=== PATIENT | male | born 1950 | race Caucasian/White ===

== ENCOUNTER 2020-03-19 22:43 | Emergency (ER) | payer MEDICARE, SELFPAY ==
--- NOTE | 2020-03-19 22:50 | XR_ITS ---
EXAMINATION: CHEST 1 VIEW CLINICAL INFORMATION: Chest pain. COMPARISON: 08/13/2019. TECHNIQUE: An AP view of the chest is provided. FINDINGS: The cardiac silhouette is not enlarged. The mediastinal and hilar contours are unremarkable. There are neither pleural effusions nor pneumothoraces. There are no consolidations. The osseous structures are unremarkable. XR/XR chest 1V IMPRESSION: No evidence for acute disease.
[2020-03-19 22:51] VITALS: BP 173/82; PULSE 69; RESP 17; TEMP 36.5; O2SAT 100; BMI 24.3
--- NOTE | 2020-03-19 22:51 | ECG_ITS ---
Test Reason : CP Blood Pressure : / mmHG Vent. Rate : 070 BPM Atrial Rate : 070 BPM P-R Int : 172 ms QRS Dur : 094 ms QT Int : 432 ms P-R-T Axes : 063 017 074 degrees QTc Int : 466 ms Normal sinus rhythm Possible Left atrial enlargement Cannot rule out Anterior infarct , age undetermined Abnormal ECG When compared with ECG of 14-AUG-2019 10:28, T wave inversion no longer evident in Inferior leads Referred By: Bernice Saeed Electronically Signed By:GRAHAM TONY
[2020-03-19 23:02] LABS: Glucose, Whole Blood 110 mg/dL (60-115)
[2020-03-19 23:06] LABS: Basophils Percent Auto 0.4 % (0-2); Eosinophils Absolute Auto 0.3 X10*3/uL (0.0-0.4); Eosinophils Percent Auto 4.1 % (0-4); Hematocrit 38.6 % (42-52); Hemoglobin 12.7 g/dl (14.0-18.0); Imm Gran Abs Auto 0.09 X10*3/uL (0.00-0.03); Imm Gran Pct Auto 1.3 % (0.0-0.4); Lymphocytes Absolute Auto 1.9 X10*3/uL (1.2-4.9); Lymphocytes Percent Auto 27.1 % (20-40); MANUAL DIFF FLAG NO; Mean Corpuscular HGB Conc 32.9 g/dl (31.0-36.0); Mean Corpuscular Hemoglobin 29.3 pg (27.0-33.0); Mean Corpuscular Volume 89.1 fL (80-98); Mean Platelet Volume 10.7 fL (9.4-12.4); Monocytes Absolute Auto 0.5 X10*3/uL (0.1-1.2); Monocytes Percent Auto 7.2 % (2-11); Neutrophils Absolute Auto 4.2 X10*3/uL (2.0-8.3); Neutrophils Percent Auto 59.9 % (45-73); Platelet Count 166 X10*3/uL (160-400); Red Blood Count 4.33 X10*6/uL (4.60-5.80); Red Cell Distribution Width 13.6 % (11.0-16.0)
[2020-03-19 23:13] LABS: INTERNATIONAL NORM RATIO 1.1 (0.9-1.1); Prothrombin Time 12.6 SEC (10.8-13.0)
[2020-03-19 23:15] LABS: Partial Thromboplastin Time 32.8 SEC (24.1-38.0)
[2020-03-19 23:38] LABS: Troponin-I High Sensitivity 9.8 ng/L (<3.5-35.0)
[2020-03-19 23:39] LABS: Alanine Aminotransferase 18 U/L (0-40); Albumin Level 4.3 g/dL (3.5-5.0); Alkaline Phosphatase 64 U/L (39-117); Anion Gap 18 (12-20); Aspartate Amino Transferase 16 U/L (5-37); Bilirubin Direct 0.2 mg/dL (0.0-0.5); Bilirubin Total 0.3 mg/dL (0.0-1.0); Blood Urea Nitrogen 30 mg/dL (9-16); Calcium 8.8 mg/dL (8.4-10.2); Carbon Dioxide 24 mmol/L (22-29); Chloride 101 mmol/L (96-108); Estimated Glomerular Filt Rate 53; Glucose Random 101 mg/dL (60-115); Magnesium 1.8 mg/dL (1.6-2.6); Potassium 4.7 mmol/L (3.3-5.1); Sodium 138 mmol/L (135-145); Total Protein 6.9 g/dL (6.5-8.0)
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
[2020-03-19 23:44] LABS: Influenza A PCR NEGATIVE (Negative); Influenza B PCR NEGATIVE (Negative); Resp Syncy Virus RNA Qual PCR NEGATIVE (Negative); SARS COV2 PCR INHOUSE NEGATIVE (Negative)
[2020-03-19 23:50] LABS: Lipase 99 U/L (8-78)
[2020-03-20] VITALS: BP 153/78; PULSE 65; RESP 15; TEMP 36.9; O2SAT 97
[2020-03-20] MEDS: 0.9 % Sodium Chloride 1,000 ML 999 ML IVCONT (00:37)
[2020-03-20 00:41] LABS: Glucose, Whole Blood 78 mg/dL (60-115)
[2020-03-20 01:28] LABS: Troponin-I High Sensitivity 9.2 ng/L (<3.5-35.0)
[2020-03-20 02:00] VITALS: BP 131/71; PULSE 66; RESP 16; TEMP 36.9; O2SAT 98
[2020-03-20 02:15] LABS: Glucose, Whole Blood 104 mg/dL (60-115)
--- NOTE | 2020-03-20 02:30 | ECG_ITS ---
Test Reason : REPEAT Blood Pressure : / mmHG Vent. Rate : 068 BPM Atrial Rate : 068 BPM P-R Int : 168 ms QRS Dur : 094 ms QT Int : 428 ms P-R-T Axes : 060 -02 070 degrees QTc Int : 455 ms Normal sinus rhythm Possible Left atrial enlargement Possible Anterior infarct (cited on or before 19-MAR-2020) Abnormal ECG When compared with ECG of 19-MAR-2020 22:47, No significant change was found Referred By: Bernice Saeed Electronically Signed By:GRAHAM TONY
[2020-03-20] MEDS: traMADoL HCL 50 MG TABLET PO (03:04)
== END 2020-03-20 03:45 | disposition home or self-care (01) ==
PROVIDERS: Nurse Practitioner Family; Emergency Provider Emergency Medicine; PCP Internal Medicine
DX: R07.89 Other chest pain (principal); F41.9 Anxiety disorder, unspecified; E11.649 Type 2 diabetes mellitus with hypoglycemia without coma; Z79.4 Long term (current) use of insulin; Z20.822 Contact with and (suspected) exposure to COVID-19; I11.0 Hypertensive heart disease with heart failure; I50.9 Heart failure, unspecified; E78.5 Hyperlipidemia, unspecified
CPT/HCPCS: 0241U; 36415; 71045; 80048; 80076; 82947; 83690; 83735; 84484; 85025; 85610; 85730; 93005; 96360; 99284; 99291

== ENCOUNTER 2020-05-20 13:21 | Inpatient (IN) | payer MEDICARE, SELFPAY ==
--- NOTE | ~2020-05-20 | CT_ITS ---
EXAMINATION: CT ABDOMEN AND PELVIS WITHOUT CONTRAST CLINICAL INFORMATION: Severe diffuse abdominal pain and constipation. COMPARISON: None TECHNIQUE: Multidetector volumetric imaging was performed from the superior aspect of the liver through the pubic symphysis. Sagittal and coronal reformatted images were obtained on the technologist's workstation. This CT examination was performed using dose optimization techniques as appropriate, variously including the following: *Automated exposure control *Adjustment of mA and/or kV according to patient size (this includes techniques or standardized protocols for targeted exams where dose is matched to indication/reason for exam; i.e. extremities or head) *Use of iterative reconstruction technique DLP: 615 mGy-cm FINDINGS: Visualized lung bases demonstrate mild dependent atelectasis. Coronary artery calcifications are partially visualized. The liver is normal in size but demonstrates diffusely decreased attenuation. Small gallstones are present dependently within an otherwise unremarkable appearing gallbladder. Mild fatty atrophy of the pancreas. The spleen and adrenal glands are unremarkable. Small anterior splenule. The kidneys are symmetric in size. No renal calculi or hydronephrosis bilaterally. Perinephric stranding is present bilaterally, nonspecific. The stomach is decompressed. Normal caliber loops of small bowel. Moderate to severe stool burden throughout the majority of the colon. Mild diffuse rectal wall thickening suggesting proctitis. Normal appendix. Nonaneurysmal abdominal aorta. Mild to moderate atherosclerotic disease. No retroperitoneal lymphadenopathy. The bladder is distended. Prostate gland is at the upper limits of normal in size. Moderate sized fat-containing inguinal hernias bilaterally. No inguinal lymphadenopathy. Mild diffuse degenerative changes of the spine. 1.5 cm sclerotic density within the right ilium is nonspecific. Partially visualized sternotomy wires. CT/CT abdomen pelvis wo con IMPRESSION: 1. Moderate to severe colonic stool burden consistent with constipation. 2. Diffusely decreased liver attenuation suggesting hepatic steatosis. Correlation with liver enzymes recommended. 3. Cholelithiasis. 4. Distended bladder, nonspecific finding.
--- NOTE | ~2020-05-20 | XR_ITS ---
EXAMINATION: XR ABDOMEN KUB CLINICAL INDICATION: Evaluate for small bowel obstruction COMPARISON: CT abdomen pelvis 05/20/2020 TECHNIQUE: AP view of the abdomen. FINDINGS: No dilated air-filled loops of small bowel to suggest an obstructive process. Moderate to severe stool burden again demonstrated throughout the colon. No acute osseous abnormality. Similar sclerotic density of the right ilium. Visualized lung bases are well aerated. XR/XR KUB IMPRESSION: -Constipation. -No radiographic evidence to suggest bowel obstruction.
--- NOTE | 2020-05-20 13:26 | ED.ABDPAIN ---
HPI - Abdominal Pain General Chief Complaint: Abdominal Pain Stated Complaint: LOW ABD PAIN & CONSTIPATION S/P SURG WEEKS AGO Time Seen by Provider: 05/20/20 13:26 Source: patient and EMS Mode of arrival: EMS Limitations: no limitations History of Present Illness HPI narrative: 70 yo male with DM, CAD s/p PCI [address] 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 comes in with a few days of abdominal pain diffusely, constipation - no prior episodes of this in past, denies ETOH use, no prior abdominal surgeries MD elicited complaint: abdominal pain Pertinent past history: myocardial infarction Onset (ago): day(s) (few) Pain Consistency: constant Location: diffuse Severity: severe Quality: cramping Radiation: none Migration to: no migration Exacerbating factors: movement Relieving factors: nothing Context: recent surgery/procedure Associated symptoms: nausea and constipation Related Data Home Medications Medication Instructions Recorded Confirmed aspirin 81 mg tablet,delayed 81 mg PO DAILY 03/10/20 05/20/20 release atorvastatin 80 mg tablet 80 mg PO BEDTIME 03/10/20 05/20/20 ezetimibe 10 mg tablet 10 mg PO DAILY 03/10/20 05/20/20 isosorbide mononitrate 60 mg 60 mg PO BID 03/10/20 05/20/20 tablet,extended release 24 hr metformin 1,000 mg tablet 1,000 mg PO BID 03/10/20 05/20/20 metoprolol succinate 100 mg 100 mg PO DAILY 03/10/20 05/20/20 tablet,extended release 24 hr sitagliptin 100 mg tablet 100 mg PO DAILY 03/10/20 05/20/20 amlodipine 10 mg PO DAILY 05/20/20 05/20/20 carvedilol 12.5 mg PO BID 05/20/20 05/20/20 insulin glargine 60 unit SUBCUT BEDTIME 05/20/20 05/20/20 Previous Rx's Medication Instructions Recorded glipizide 10 mg tablet 10 mg PO BID 90 Days #180 tab 03/26/20 lisinopril 20 mg tablet 20 mg PO DAILY #90 tab 03/26/20 pregabalin 75 mg capsule 75 mg PO BID 30 Days #60 cap 04/03/20 furosemide 40 mg tablet 40 mg PO DAILY #90 tab 05/08/20 ranolazine 500 mg tablet,extended 500 mg PO BID #180 tab 05/08/20 release,12 hr alprazolam 1 mg tablet 1 mg PO BID #60 tab 05/14/20 clopidogrel 75 mg tablet 75 mg PO DAILY #90 tab 05/14/20 nitroglycerin 0.4 mg sublingual 0.4 mg SUBLINGUAL ONCE PRN #25 tab 05/18/20 tablet Allergies Allergy/AdvReac Type Severity Reaction Status Date / Time Sulfa (Sulfonamide Allergy Intermediate HIVES Verified 03/29/20 13:42 Antibiotics) [SULFA (SULFONAMIDE ANTIBIOTICS)] Review of Systems Review of Systems Constitutional : No Weight loss, No Fever, No Chills ENT/Mouth : No sore throat, No Rhinorrhea Eyes: No Swelling, No Redness Cardiovascular : No Chest Pain, No SOB, NoEdema Respiratory : No Cough, No Sputum, No Wheezing Gastrointestinal : Positive Nausea, no Vomiting, no Diarrhea, positive abdominal Pain, No Hematochezia, No Melena, pos constipation Genitourinary : No Dysuria, No Urinary Frequency, No Hematuria, No Urgency Musculoskeletal : No joint pain, No Myalgias, No Joint Swelling Skin : No Skin Lesions, No rash Neuro : No Weakness, No Numbness, No Dizziness, No Headache Psych : No Anxiety/Panic, No Depression Heme/Lymph: No Bruising, No Lymphadenopathy Endocrine : No Polyuria, No Polydipsia All other systems reviewed and are negative. Physical Exam Vital Signs: Vital Signs: Last Vital Signs Temp 97.4 F 05/20/20 14:00 Pulse 60 05/20/20 15:58 Resp 16 05/20/20 15:58 BP 121/68 05/20/20 15:58 Pulse Ox 97 05/20/20 15:58 Body Mass Index 24.0 Appearance: Alert. Oriented X3. Anxious in pain, mild acute distress Eyes: Pupils equal, round and reactive to light. ENT: Pharynx dry MMM Neck: Normal inspection. Neck supple. CVS: Normal heart rate and rhythm. Pulses normal. Respiratory: No respiratory distress. Breath sounds normal. Abdomen: Soft and moderate ttp diffusely with guarding, distended, decreased BS Skin: Skin warm and dry. Normal skin color. Normal skin turgor. Extremities: No lower extremity edema. No calf ttp Neuro: Oriented X 3. No motor deficit. No sensory deficit. Procedures Rectal Disimpaction Time out performed rectal disimpaction: Yes Indication: fecal impaction Procedural Sedation: No Sedation/Analgesia: none Technique: manual disimpaction with gloved finger Result: significant stool output Patient Tolerated Procedure: well and no complications Complications: none Course Course Course Narrative: villarreal ordered for retention [facility] records ACTUALLY SHOW NO STENTING DONE - MEDICAL MANAGEMENT recommended left AMA on 05/09 prior to CTA result for suspected aortic aneurysm in thoracic region - stable aneurysem of ascending thoracic aorta 4.2cm patient feels much better after villarreal - 1700 voided will try enema and to disimpact patient - zosyn for procitis ordered K 7.5 - has peaked t waves V4-V6 likely post obstructive from his impaction, 2L of IVF ordered, IV HCO3, insulin/dextrose, kayexalate call to Nephrology on lisinopril, metformin, lasix Dr. Davis agrees with plan repeat K in 2 hours 630pm lab ordered signed out to Dr. Layne pending repeat, hospitalist aware but repeat K pending placement MDM - Abdominal Pain MDM Narrative Medical decision making narrative: 70 yo male with hx of CAD s/p recent PCI with stents, DM no ETOH use c/o diffuse abdominal pain with constipation - abdomen is distended at this time, will obtain STAT CT scan to r/o perforation, labs, IVF, IV morphine for pain, dispo per results and findings. Lab Data Result diagrams: 05/20/20 15:03 05/20/20 15:03 Labs: Lab Results 05/20/20 05/20/20 05/20/20 Range/Units 15:03 15:03 15:03 WBC 12.8 H (4.8-10.8) X10*3/uL RBC 4.35 L (4.60-5.80) X10*6/uL Hgb 12.9 L (14.0-18.0) g/dl Hct 39.1 L (42-52) % MCV 89.9 (80-98) fL MCH 29.7 (27.0-33.0) pg MCHC 33.0 (31.0-36.0) g/dl RDW 14.6 (11.0-16.0) % Plt Count 210 D (160-400) X10*3/uL MPV 10.9 (9.4-12.4) fL Immature Gran % (Auto) 0.5 H (0.0-0.4) % Neut % (Auto) 85.4 H (45-73) % Lymph % (Auto) 8.9 L (20-40) % [place] % (Auto) 4.4 (2-11) % Eos % (Auto) 0.6 (0-4) % Baso % (Auto) 0.2 (0-2) % Lymph # (Auto) 1.1 L (1.2-4.9) X10*3/uL [place] # (Auto) 0.6 (0.1-1.2) X10*3/uL Eos # (Auto) 0.1 (0.0-0.4) X10*3/uL Baso # (Auto) 0.0 (0.0-0.2) X10*3/uL Abs Immat Gran (auto) 0.07 H (0.00-0.03) X10*3/uL Absolute Neuts (auto) 11.0 H (2.0-8.3) X10*3/uL Absolute Nucleated RBC 0.000 (0.0-0.012) X10*3/uL Nucleated RBC % (auto) 0.0 (0.0-0.2) /100WBC PT (10.8-13.0) SEC INR (0.9-1.1) APTT (24.1-38.0) SEC Sodium 134 L (135-145) mmol/L Potassium 7.4 H* D (3.3-5.1) mmol/L Chloride 100 (96-108) mmol/L Carbon Dioxide 25 (22-29) mmol/L Anion Gap 16 (12-20) BUN 40 H (9-16) mg/dL Creatinine 2.25 H (0.5-1.4) mg/dL Estim Creat Clear Calc 30.4 Estimated GFR 29 Random Glucose 264 H D (60-115) mg/dL Lactic Acid (0.5-2.0) mmol/L Calcium 9.9 D (8.4-10.2) mg/dL Magnesium 2.6 (1.6-2.6) mg/dL Total Bilirubin 0.6 (0.0-1.0) mg/dL Direct Bilirubin 0.3 (0.0-0.5) mg/dL AST 14 (5-37) U/L ALT 14 (0-40) U/L Alkaline Phosphatase 71 (39-117) U/L Total Protein 7.5 (6.5-8.0) g/dL Albumin 4.5 (3.5-5.0) g/dL Lipase (8-78) U/L Urine Color Urine Appearance Urine pH (5.0-8.0) Ur Specific [place] (1.005-1.025) Urine Protein (NEG-TRACE) MG/DL Urine Glucose (UA) (NEG) MG/DL Urine Ketones (NEG) MG/DL Urine Blood (NEG) Urine Nitrite (NEG) Ur Leukocyte Esterase (NEG) Urine RBC (0) /HPF Urine WBC (0-4) /HPF Ur Squamous Epith Cells /LPF Urine Bacteria /LPF COVID-19 (YOLANDA) Negative (Negative) COVID-19 Clin Com See Note 05/20/20 05/20/20 05/20/20 Range/Units 15:03 15:03 15:03 WBC (4.8-10.8) X10*3/uL RBC (4.60-5.80) X10*6/uL Hgb (14.0-18.0) g/dl Hct (42-52) % MCV (80-98) fL MCH (27.0-33.0) pg MCHC (31.0-36.0) g/dl RDW (11.0-16.0) % Plt Count (160-400) X10*3/uL MPV (9.4-12.4) fL Immature Gran % (Auto) (0.0-0.4) % Neut % (Auto) (45-73) % Lymph % (Auto) (20-40) % [place] % (Auto) (2-11) % Eos % (Auto) (0-4) % Baso % (Auto) (0-2) % Lymph # (Auto) (1.2-4.9) X10*3/uL [place] # (Auto) (0.1-1.2) X10*3/uL Eos # (Auto) (0.0-0.4) X10*3/uL Baso # (Auto) (0.0-0.2) X10*3/uL Abs Immat Gran (auto) (0.00-0.03) X10*3/uL Absolute Neuts (auto) (2.0-8.3) X10*3/uL Absolute Nucleated RBC (0.0-0.012) X10*3/uL Nucleated RBC % (auto) (0.0-0.2) /100WBC PT 13.5 H (10.8-13.0) SEC INR 1.1 (0.9-1.1) APTT 31.9 (24.1-38.0) SEC Sodium (135-145) mmol/L Potassium (3.3-5.1) mmol/L Chloride (96-108) mmol/L Carbon Dioxide (22-29) mmol/L Anion Gap (12-20) BUN (9-16) mg/dL Creatinine (0.5-1.4) mg/dL Estim Creat Clear Calc Estimated GFR Random Glucose (60-115) mg/dL Lactic Acid 1.7 (0.5-2.0) mmol/L Calcium (8.4-10.2) mg/dL Magnesium (1.6-2.6) mg/dL Total Bilirubin (0.0-1.0) mg/dL Direct Bilirubin (0.0-0.5) mg/dL AST (5-37) U/L ALT (0-40) U/L Alkaline Phosphatase (39-117) U/L Total Protein (6.5-8.0) g/dL Albumin (3.5-5.0) g/dL Lipase 57 (8-78) U/L Urine Color Urine Appearance Urine pH (5.0-8.0) Ur Specific [place] (1.005-1.025) Urine Protein (NEG-TRACE) MG/DL Urine Glucose (UA) (NEG) MG/DL Urine Ketones (NEG) MG/DL Urine Blood (NEG) Urine Nitrite (NEG) Ur Leukocyte Esterase (NEG) Urine RBC (0) /HPF Urine WBC (0-4) /HPF Ur Squamous Epith Cells /LPF Urine Bacteria /LPF COVID-19 (YOLANDA) (Negative) COVID-19 Clin Com 05/20/20 Range/Units 15:03 WBC (4.8-10.8) X10*3/uL RBC (4.60-5.80) X10*6/uL Hgb (14.0-18.0) g/dl Hct (42-52) % MCV (80-98) fL MCH (27.0-33.0) pg MCHC (31.0-36.0) g/dl RDW (11.0-16.0) % Plt Count (160-400) X10*3/uL MPV (9.4-12.4) fL Immature Gran % (Auto) (0.0-0.4) % Neut % (Auto) (45-73) % Lymph % (Auto) (20-40) % [place] % (Auto) (2-11) % Eos % (Auto) (0-4) % Baso % (Auto) (0-2) % Lymph # (Auto) (1.2-4.9) X10*3/uL [place] # (Auto) (0.1-1.2) X10*3/uL Eos # (Auto) (0.0-0.4) X10*3/uL Baso # (Auto) (0.0-0.2) X10*3/uL Abs Immat Gran (auto) (0.00-0.03) X10*3/uL Absolute Neuts (auto) (2.0-8.3) X10*3/uL Absolute Nucleated RBC (0.0-0.012) X10*3/uL Nucleated RBC % (auto) (0.0-0.2) /100WBC PT (10.8-13.0) SEC INR (0.9-1.1) APTT (24.1-38.0) SEC Sodium (135-145) mmol/L Potassium (3.3-5.1) mmol/L Chloride (96-108) mmol/L Carbon Dioxide (22-29) mmol/L Anion Gap (12-20) BUN (9-16) mg/dL Creatinine (0.5-1.4) mg/dL Estim Creat Clear Calc Estimated GFR Random Glucose (60-115) mg/dL Lactic Acid (0.5-2.0) mmol/L Calcium (8.4-10.2) mg/dL Magnesium (1.6-2.6) mg/dL Total Bilirubin (0.0-1.0) mg/dL Direct Bilirubin (0.0-0.5) mg/dL AST (5-37) U/L ALT (0-40) U/L Alkaline Phosphatase (39-117) U/L Total Protein (6.5-8.0) g/dL Albumin (3.5-5.0) g/dL Lipase (8-78) U/L Urine Color YELLOW Urine Appearance CLEAR Urine pH 5.5 (5.0-8.0) Ur Specific [place] 1.020 (1.005-1.025) Urine Protein 1+ H (NEG-TRACE) MG/DL Urine Glucose (UA) 250 H (NEG) MG/DL Urine Ketones NEG (NEG) MG/DL Urine Blood 2+ H (NEG) Urine Nitrite NEG (NEG) Ur Leukocyte Esterase NEG (NEG) Urine RBC 30-49 H (0) /HPF Urine WBC 1-4 (0-4) /HPF Ur Squamous Epith Cells TRACE /LPF Urine Bacteria TRACE /LPF COVID-19 (YOLANDA) (Negative) COVID-19 Clin Com ECG Data Attestation: I personally reviewed and interpreted this ECG as follows: ECG interpretation date: 05/20/20 ECG interpretation time: 14:42 Interpretation: Rate: 56 Rhythm: sinus bradycardia Babcock: left Normal P waves. Normal KINJAL. Normal QRS complex. ST T wave : nonspecific I and aVL, t waves peaked V4-V6 qTC: normal prior studies: no sig change as of Mar 2019 The study has been interpreted contemporaneously by me. . Critical Care Time Critical Care Time Critical Care Time: Yes Total Critical Care Time: 60 Attestation: labs, IVF 2L NS, consult I attest to this time spent taking care of the patient Discharge Plan Discharge Clinical Impression: Fecal impaction, Acute hyperkalemia, Acute urinary retention, Acute proctitis Constipation Qualifiers: Constipation type: other constipation type Qualified Code(s): K59.09 - Other constipation Acute renal failure Qualifiers: Acute renal failure type: unspecified Qualified Code(s): N17.9 - Acute kidney failure, unspecified Patient Disposition: Admitted As Inpatient [facility] Past Medical History Attestation statement: The following information was validated with the patient. Medical History (Updated 05/20/20 @ 16:30 by Sumi Bautista DO) AAA (abdominal aortic aneurysm) Cardiac angina CHF (congestive heart failure) Generalized anxiety disorder High cholesterol HTN (hypertension) Type 2 diabetes mellitus without complications Surgical History History of open heart surgery Family History Family History Mother High blood pressure High cholesterol Social History Social History Alcohol intake: never Smoking Status: Never smoker Use of substances other than those prescribed or required for medical reasons: No Advance Directives: No Advance Directives Information Provided: No
--- NOTE | 2020-05-20 13:36 | ECG_ITS ---
Test Reason : GENERAL MEDICAL Blood Pressure : / mmHG Vent. Rate : 056 BPM Atrial Rate : 056 BPM P-R Int : 194 ms QRS Dur : 108 ms QT Int : 442 ms P-R-T Axes : 004 -21 069 degrees QTc Int : 426 ms Sinus bradycardia Possible Left atrial enlargement Nonspecific ST abnormality Abnormal ECG When compared with ECG of 20-MAR-2020 02:30, T wave amplitude has increased in Lateral leads Referred By: Sumi Bautista Electronically Signed By:HANK ESPINOZA MD
[2020-05-20 13:40] VITALS: BP 147/54; BP 169/81; PULSE 61; PULSE 62; RESP 17; TEMP 36.6; O2SAT 97; O2SAT 98; BMI 24.0
[2020-05-20] MEDS: ondansetron HCL 4 MG/2 ML VIAL IVPUSH (13:57)
[2020-05-20] MEDS: Morphine Sulfate 4 MG/ML CARTRIDGE IVPUSH (13:58)
[2020-05-20 14:00] VITALS: BP 143/64; PULSE 57; RESP 16; TEMP 36.3; O2SAT 97
--- NOTE | 2020-05-20 14:03 | PC.NURSE ---
off unit to CT scan at this time s/p meds given per order
[2020-05-20 15:15] LABS: MANUAL DIFF FLAG NO
[2020-05-20 15:16] LABS: Basophils Percent Auto 0.2 % (0-2); Eosinophils Absolute Auto 0.1 X10*3/uL (0.0-0.4); Eosinophils Percent Auto 0.6 % (0-4); Hematocrit 39.1 % (42-52); Hemoglobin 12.9 g/dl (14.0-18.0); Imm Gran Abs Auto 0.07 X10*3/uL (0.00-0.03); Imm Gran Pct Auto 0.5 % (0.0-0.4); Lymphocytes Absolute Auto 1.1 X10*3/uL (1.2-4.9); Lymphocytes Percent Auto 8.9 % (20-40); Mean Corpuscular Hemoglobin 29.7 pg (27.0-33.0); Mean Corpuscular Volume 89.9 fL (80-98); Mean Platelet Volume 10.9 fL (9.4-12.4); Monocytes Absolute Auto 0.6 X10*3/uL (0.1-1.2); Monocytes Percent Auto 4.4 % (2-11); Neutrophils Percent Auto 85.4 % (45-73); Platelet Count 210 X10*3/uL (160-400); Red Blood Count 4.35 X10*6/uL (4.60-5.80); Red Cell Distribution Width 14.6 % (11.0-16.0); White Blood Count 12.8 X10*3/uL (4.8-10.8)
[2020-05-20 15:26] LABS: Glucose Urine UA 250 MG/DL (NEG); Leukocyte Esterase Urine NEG (NEG); Nitrite Urine NEG (NEG); PH 5.5 (5.0-8.0); Urine Blood 2+ (NEG); Urine Ketones NEG (NEG); Urine Protein 1+ MG/DL (NEG-TRACE)
[2020-05-20 15:28] LABS: Appearance Urine CLEAR; Color Urine YELLOW
[2020-05-20 15:31] LABS: COVID-19 Test Negative (Negative); IDNOW Serial# 9DD0AD1C
[2020-05-20 15:37] LABS: INTERNATIONAL NORM RATIO 1.1 (0.9-1.1); Prothrombin Time 13.5 SEC (10.8-13.0)
[2020-05-20 15:39] LABS: Bacteria Urine TRACE /LPF; Partial Thromboplastin Time 31.9 SEC (24.1-38.0); RBC Urine 30-49 /HPF (0); Squamous Epithelial Cell Urine TRACE /LPF
[2020-05-20 15:40] LABS: Lactic Acid 1.7 mmol/L (0.5-2.0)
[2020-05-20 15:45] LABS: Lipase 57 U/L (8-78)
[2020-05-20 15:56] LABS: Alanine Aminotransferase 14 U/L (0-40); Albumin Level 4.5 g/dL (3.5-5.0); Alkaline Phosphatase 71 U/L (39-117); Anion Gap 16 (12-20); Aspartate Amino Transferase 14 U/L (5-37); Bilirubin Direct 0.3 mg/dL (0.0-0.5); Bilirubin Total 0.6 mg/dL (0.0-1.0); Blood Urea Nitrogen 40 mg/dL (9-16); Calcium 9.9 mg/dL (8.4-10.2); Carbon Dioxide 25 mmol/L (22-29); Chloride 100 mmol/L (96-108); Creatinine Clr Calc Pharmacy 30.4; Estimated Glomerular Filt Rate 29; Glucose Random 264 mg/dL (60-115); Magnesium 2.6 mg/dL (1.6-2.6); Potassium 7.4 mmol/L (3.3-5.1); Sodium 134 mmol/L (135-145); Total Protein 7.5 g/dL (6.5-8.0)
[2020-05-20 15:58] VITALS: BP 121/68; PULSE 60; RESP 16; O2SAT 97
[2020-05-20] MEDS: Sodium Phosphate,Mono-Dibasic 133 ML ENEMA PR (16:03)
[2020-05-20] MEDS: Piperacillin Sodium/Tazobactam 3.375 GM in 0.9 % Sodium Chloride 50 ML IV (16:03)
[2020-05-20] MEDS: 0.9 % Sodium Chloride 1,000 ML 999 ML IVCONT ×2 (16:07→16:27)
[2020-05-20] MEDS: Sodium Polystyrene Sulfon/Sorb 15 GM/60 ML ORAL.SUSP 30 GM PO (16:23)
[2020-05-20] MEDS: Sodium Bicarbonate 8.4% 50 MEQ/50 ML VIAL IVPUSH (16:24)
[2020-05-20] MEDS: Insulin Regular, Human 100 UNIT/ML 3 ML VIAL IVPUSH (16:26)
--- NOTE | 2020-05-20 16:29 | PC.NURSE ---
Pt manually disimpacted by Dr Bautista with this RN at bedside, large amount of stool removed from rectum. Pt given fleet enema and on commode with scant amount of stool in commode. K+ elevated, K shift meds administered as ordered. Plan for admission. NSR on monitor. Pt agreeable/pleasant. Pt reports discomfort to abd is minimal /10
[2020-05-20 16:52] LABS: Amphetamine Screen Urine Not Detected (Not Detect); Barbiturates, Urine Not Detected (Not Detect); Benzodiazepines Screen Urine POSITIVE (Not Detect); Cannabinoid Screen Urine Not Detected (Not Detect); Cocaine Screen Urine Not Detected (Not Detect); Opiate Screen Urine Not Detected (Not Detect); Phencyclidine Screen Urine Not Detected (Not Detect)
--- NOTE | 2020-05-20 17:42 | P.HPHOSP_ITS ---
History of Present Illness Date of Service: 05/20/20 70-year-old male with past medical history significant for multivessel coronary artery disease status post CABG 2005, hypertension, hyperlipidemia, type 2 diabetes mellitus, anxiety, peripheral neuropathy, heart failure with moderately reduced ejection fraction [EF 50-55% recent admission at [facility] for unstable agnina and underwent cath on 05/07 with the following finding:Cardiac cath 05/07: Graft dependant coronary circulation. 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 OLMEDO to LAD is patent with good apical runoff. Radial graft to OM3 is widely patent with good distal runoff. SVG to RCA is occluded. Faint L to R collateral filling. There is no significant gradient on pullback across the aortic valve. Mildly elevated LV end-diastolic pressure at 20. Normal systemic pressures. who presented with chest pain. He was found to have unstable angina underwent cardiac catheterization which did not reveal any lesions requiring a stent. Patient was found to have an aortic root dilation on echo and subsequently underwent CTA chest - results are pending. On the evening of 05/08 patient decided he wanted to leave against medical advice and does not wish to wait until morning. He is calm but unwilling to share his reasoning and states he wants to go home and that his family is already here waiting to take him. Patient informed that his CTA is still pending and the risks of leaving the hospital including potential aortic aneurysm expansion, rupture, and . Patient informed that some of his medications have been changed and to stop taking his metoprolol, his 5mg dose of amlodipine, and his 500mg dose of Ranolazine. He has been informed that new prescriptions for 10mg of Amlodipine, 12.5mg of Carvedilol BID, and 1000mg BID of Ranolazine have been sent to his pharmacy and to pick these prescriptions up as soon as possible. Patient strongly encouraged to follow up with his PCP and cable installation technician in regards to this visit and pending CTA results. Aortic Aneurysm: ECHO showed aortic root normal in size. The ascending aorta is not well visualized but appears to suddenly aneurysmally dilate 4 cm above the valve to at least 4.5 cm. -CTA on 05/08; report pending Heart failure with moderately reduced ejection fraction History of congestive heart failure with LVEF: 40 to 45% on ECHO in August 2019 proBNP: 625 Patient seems clinically euvolemic. No crackles. No JVD. No increased edema in legs. ECHO 05/07: left ventricular size is normal. The left ventricular wall thickness is mildly increased. The LV systolic function is low normal . The left ventricular ejection fraction is 50-55 %. The basal to mid anteroseptal wall is hypokinetic . Grade II, moderate diastolic dysfunction with pseudonormal LV filling pattern and increased LA pressure. Recommend: - Furosemide 40mg Chronic Medical Conditions Type 2 Diabetes Mellitus At home, the patient is on sitagliptin 100mg daily at home, metformin 1000mg bid, glipizide 5mg daily HbA1C this admission 8.0. Recommend: - Resuming home Metformin, Januvia, and Lantus Peripheral neuropathy - Pregabalin 75mg bid [facility] Medical History AAA (abdominal aortic aneurysm) Cardiac angina CHF (congestive heart failure) Generalized anxiety disorder High cholesterol HTN (hypertension) Type 2 diabetes mellitus without complications Family History Mother High blood pressure High cholesterol Surgical History History of open heart surgery Social History Housing: House Alcohol intake: unknown Smoking Status: Smoker, status unknown service: No Meds Allergies Allergy/AdvReac Type Severity Reaction Status Date / Time Sulfa (Sulfonamide Allergy Intermediate HIVES Verified 03/29/20 13:42 Antibiotics) [SULFA (SULFONAMIDE ANTIBIOTICS)] Active Medications: Current Medications Generic Name Dose Route Start Last Admin Trade Name Juan PRN Reason Stop Dose Admin Pharmacy Consult 1 each 05/20/20 13:35 Consult Rx Perform Med Rec MISCELLANE ONCE PRN Consult order Home Medications Medication Instructions Recorded Confirmed Last Taken Type aspirin 81 mg tablet,delayed 81 mg PO DAILY 03/10/20 05/20/20 05/20/20 History release insulin glargine 60 unit SUBCUT BEDTIME 05/20/20 05/20/20 05/19/20 History Physical Exam Vital Signs and Narrative: Vital Signs: Last Vital Signs Temp 97.4 F 05/20/20 14:00 Pulse 60 05/20/20 15:58 Resp 16 05/20/20 15:58 BP 121/68 05/20/20 15:58 Pulse Ox 97 05/20/20 15:58 Body Mass Index 24.0 Results Labs CBC and Chem 7: 05/23/20 05:31 05/24/20 05:46 Labs: Laboratory Results - last 24 hr 05/20/20 05/20/20 05/20/20 15:03 15:03 15:03 MCV 89.9 MCH 29.7 MCHC 33.0 RDW 14.6 Plt Count 210 D MPV 10.9 Immature Gran % (Auto) 0.5 H Neut % (Auto) 85.4 H Lymph % (Auto) 8.9 L [place] % (Auto) 4.4 Eos % (Auto) 0.6 Baso % (Auto) 0.2 Lymph # (Auto) 1.1 L [place] # (Auto) 0.6 Eos # (Auto) 0.1 Baso # (Auto) 0.0 Abs Immat Gran (auto) 0.07 H Absolute Neuts (auto) 11.0 H Absolute Nucleated RBC 0.000 Nucleated RBC % (auto) 0.0 PT INR APTT Anion Gap 16 Estim Creat Clear Calc 30.4 Estimated GFR 29 Random Glucose 264 H D Lactic Acid Calcium 9.9 D Magnesium 2.6 Total Bilirubin 0.6 Direct Bilirubin 0.3 AST 14 ALT 14 Alkaline Phosphatase 71 Total Protein 7.5 Albumin 4.5 Lipase Urine Color Urine Appearance Urine pH Ur Specific [place] Urine Protein Urine Glucose (UA) Urine Ketones Urine Blood Urine Nitrite Ur Leukocyte Esterase Urine RBC Urine WBC Ur Squamous Epith Cells Urine Bacteria Urine Opiates Screen Ur Barbiturates Screen Ur Phencyclidine Scrn Ur Amphetamines Screen U Benzodiazepines Scrn Urine Cocaine Screen U Marijuana (THC) Screen COVID-19 (YOLANDA) Negative COVID-19 Clin Com See Note 05/20/20 05/20/20 05/20/20 15:03 15:03 15:03 MCV MCH MCHC RDW Plt Count MPV Immature Gran % (Auto) Neut % (Auto) Lymph % (Auto) [place] % (Auto) Eos % (Auto) Baso % (Auto) Lymph # (Auto) [place] # (Auto) Eos # (Auto) Baso # (Auto) Abs Immat Gran (auto) Absolute Neuts (auto) Absolute Nucleated RBC Nucleated RBC % (auto) PT 13.5 H INR 1.1 APTT 31.9 Anion Gap Estim Creat Clear Calc Estimated GFR Random Glucose Lactic Acid 1.7 Calcium Magnesium Total Bilirubin Direct Bilirubin AST ALT Alkaline Phosphatase Total Protein Albumin Lipase 57 Urine Color Urine Appearance Urine pH Ur Specific [place] Urine Protein Urine Glucose (UA) Urine Ketones Urine Blood Urine Nitrite Ur Leukocyte Esterase Urine RBC Urine WBC Ur Squamous Epith Cells Urine Bacteria Urine Opiates Screen Ur Barbiturates Screen Ur Phencyclidine Scrn Ur Amphetamines Screen U Benzodiazepines Scrn Urine Cocaine Screen U Marijuana (THC) Screen COVID-19 (YOLANDA) COVID-19 [employer] Com 05/20/20 05/20/20 15:03 15:12 MCV MCH MCHC RDW Plt Count MPV Immature Gran % (Auto) Neut % (Auto) Lymph % (Auto) [place] % (Auto) Eos % (Auto) Baso % (Auto) Lymph # (Auto) [place] # (Auto) Eos # (Auto) Baso # (Auto) Abs Immat Gran (auto) Absolute Neuts (auto) Absolute Nucleated RBC Nucleated RBC % (auto) PT INR APTT Anion Gap Estim Creat Clear Calc Estimated GFR Random Glucose Lactic Acid Calcium Magnesium Total Bilirubin Direct Bilirubin AST ALT Alkaline Phosphatase Total Protein Albumin Lipase Urine Color YELLOW Urine Appearance CLEAR Urine pH 5.5 Ur Specific [place] 1.020 Urine Protein 1+ H Urine Glucose (UA) 250 H Urine Ketones NEG Urine Blood 2+ H Urine Nitrite NEG Ur Leukocyte Esterase NEG Urine RBC 30-49 H Urine WBC 1-4 Ur Squamous Epith Cells TRACE Urine Bacteria TRACE Urine Opiates Screen Not Detected Ur Barbiturates Screen Not Detected Ur Phencyclidine Scrn Not Detected Ur Amphetamines Screen Not Detected U Benzodiazepines Scrn POSITIVE H Urine Cocaine Screen Not Detected U Marijuana (THC) Screen Not Detected COVID-19 (YOLANDA) COVID-19 Clin Com Imaging Radiologist's Impressions: Impressions Abdomen/Pelvis CT 05/20/20 13:35 IMPRESSION: 1. Moderate to severe colonic stool burden consistent with constipation. 2. Diffusely decreased liver attenuation suggesting hepatic steatosis. Correlation with liver enzymes recommended. 3. Cholelithiasis. 4. Distended bladder, nonspecific finding.
[2020-05-20 18:08] VITALS: BP 138/70; PULSE 69; RESP 14; TEMP 36.7; O2SAT 97
[2020-05-20 18:32] LABS: COVID-19 Test Negative (Negative)
[2020-05-20 19:14] LABS: Potassium 5.5 mmol/L (3.3-5.1)
--- NOTE | 2020-05-20 19:47 | PC.NURSE ---
HOSPITALIST IN ROOM FOR EVAL. PT AWAITING FOR ROOM ASSIGNMENT. PT IN NAD. PT ALERT, RESPIRATIONS EASY, N/L. SKIN W/D.
[2020-05-20 20:53] VITALS: BP 128/68; PULSE 66; RESP 14; O2SAT 96
[2020-05-20 21:20] LABS: COVID-19 Test Negative (Negative)
--- NOTE | 2020-05-20 22:05 | PC.NURSE ---
PT SLEEPING, WAKES TO VOICE. PT IN NAD. PT AWAITING FOR ROOM ASSIGNMENT.
--- NOTE | 2020-05-20 22:19 | PC.NURSE ---
PT AWAKE AND REQUESTING WATER TO DRINK. PT IN NAD AND AWAITING BED ASSIGNMENT, WILL RESPIRATIONS N/L, SKIN W/D.
[2020-05-21] VITALS (11 sets, daily range): BP systolic 111–149; BP diastolic 64–81; PULSE 63–80; RESP 16–20; TEMP 36.6–37; O2SAT 94–97
[2020-05-21] MEDS: Isosorbide Mononitrate 60 MG TAB.ER.24H PO ×2 (02:20→20:50)
[2020-05-21] MEDS: carvediloL 12.5 MG TABLET PO ×3 (02:21→20:51)
[2020-05-21] MEDS: ALPRAZolam 0.5 MG TABLET 1 MG PO ×3 (02:22→20:51)
[2020-05-21] MEDS: Pregabalin 75 MG CAPSULE PO ×3 (02:27→20:51)
[2020-05-21] MEDS: 0.9 % Sodium Chloride 1,000 ML 100 ML IVCONT ×2 (02:28→12:21)
[2020-05-21] MEDS: Heparin Sodium,Porcine 5,000 UNIT/ML VIAL 5000 UNIT SUBCUT ×2 (02:28→12:16)
[2020-05-21] MEDS: Atorvastatin Calcium 80 MG TABLET PO ×2 (02:28→20:51)
[2020-05-21] MEDS: Insulin Glargine,Hum.rec.anlog 100 UNIT/ML 10 ML VIAL 60 UNIT SUBCUT (02:28)
[2020-05-21] MEDS: levoFLOXacin/D5W 750 MG/150 ML PIGGYBACK 100 MG IV (02:29)
[2020-05-21] MEDS: Ranolazine 500 MG TAB.ER.12H PO ×3 (02:29→20:51)
[2020-05-21] MEDS: metroNIDAZOLE/NS 500 MG/100 ML PIGGYBACK 100 MG IV ×2 (03:43→09:39)
--- NOTE | 2020-05-21 03:43 | PC.NURSE ---
PT MEDICATED PER EMAR. PT TO FLOOR ON STRETCHER ON MONITOR. PT LEFT ED IN NAD AT THIS TIME. WILL CONTINUE TO MONITOR PT.
[2020-05-21 04:18] LABS: Glucose, Whole Blood 151 mg/dL (60-115)
--- NOTE | 2020-05-21 05:36 | P.HPHOSP_ITS ---
History of Present Illness Date of Service: 05/20/20 Chief Complaint: abdomional pain With past medical history of AAA, CHF, generalized anxiety disorder, HLD, HTN, type 2 diabetes who presents to the hospital with abdominal pain. Pain is diffuse, 8/10, nonradiating, no worsening or alleviating factors, slightly relieved after being disimpacted in the ED. Patient reports that he has not moved his bowels in over 5 days, he is feeling very constipated, he has diffuse abdominal pain, no nausea or vomiting, no fever or chills, no chest pain, no weakness numbness or tingling, he does have urinary retention, no lower extremity edema. On arrival to the ED hemodynamically stable with no significant abnormal vitals, labs are significant for WBC count of 12.8, hemoglobin of 12.9, hematocrit 39.1, sodium of 134, potassium 5.5, BUN of 40, creatinine of 2.25 with a baseline around UA that is negative for infection but positive for urine blood and RBC, and UDS that is positive for benzodiazepines Abdominal pelvic CT demonstrated moderate to severe colonic stool burden consistent with constipation, mild diffuse rectal wall thickening suggestive of proctitis, diffusely decreased liver attenuation suggestive of hepatic steatosis, cholelithiasis, distended bladder Patient was manually disimpacted in the ED is feeling significantly better since, Review of Systems Review of Systems: Yes all other systems are reviewed and are negative [facility] Medical History AAA (abdominal aortic aneurysm) Cardiac angina CHF (congestive heart failure) Generalized anxiety disorder High cholesterol HTN (hypertension) Type 2 diabetes mellitus without complications Family History Mother High blood pressure High cholesterol Surgical History History of open heart surgery Social History Housing: House Do you presently have visiting nurse or other home services: No Alcohol intake: never Smoking Status: Never smoker Use of substances other than those prescribed or required for medical reasons: No Have you been hit, kicked, punched, or otherwise hurt by someone within the past year? If so, by whom?: No Do you feel safe in your current relationship?: No Current Relationship Is there a partner from a previous relationship who is making you feel unsafe now?: No Are you made to feel afraid or neglected: No Advance Directives: No Advance Directives Information Provided: No Do you have thoughts of harming others: None Do you have a plan to hurt others: No Plan Recently lost weight without trying: No Meds Allergies Allergy/AdvReac Type Severity Reaction Status Date / Time Sulfa (Sulfonamide Allergy Intermediate HIVES Verified 03/29/20 13:42 Antibiotics) [SULFA (SULFONAMIDE ANTIBIOTICS)] Active Medications: Current Medications Generic Name Dose Route Start Last Admin Trade Name Freq PRN Reason Stop Dose Admin Acetaminophen 650 mg 05/21/20 00:52 Acetaminophen 325 Mg Tablet PO Q6H PRN Pain, Mild (Pain Scale 1-3) Alprazolam 1 mg 05/21/20 00:52 05/21/20 02:22 Alprazolam 0.5 Mg Tablet PO 1 mg BID ERIN Administration Amlodipine Besylate 10 mg 05/21/20 09:00 Amlodipine Besylate 10 Mg Tablet PO DAILY [facility] Protocol Aspirin 81 mg 05/21/20 09:00 Aspirin Enteric Coated 81 Mg Tablet.Dr PO DAILY [facility] Atorvastatin Calcium 80 mg 05/21/20 00:52 05/21/20 02:28 Atorvastatin Calcium 80 Mg Tablet PO 80 mg BEDTIME ERIN Administration Carvedilol 12.5 mg 05/21/20 00:52 05/21/20 02:21 Carvedilol 12.5 Mg Tablet PO 12.5 mg BID ERIN Administration Protocol Clopidogrel Bisulfate 75 mg 05/21/20 09:00 Clopidogrel Bisulfate 75 Mg Tablet PO DAILY [facility] Docusate Sodium 100 mg 05/21/20 00:52 05/21/20 02:20 Docusate Sodium 100 Mg Capsule PO Not Given BID [facility] Ezetimibe 10 mg 05/21/20 09:00 Ezetimibe 10 Mg Tablet PO DAILY [facility] Heparin Sodium (Porcine) 5,000 unit 05/21/20 01:00 05/21/20 02:28 Heparin Sodium,Porcine 5,000 Unit/Ml Vial SUBCUT 5,000 unit Q12H ERIN Administration Sodium Chloride 1,000 mls @ 100 mls/hr 05/21/20 00:52 05/21/20 02:28 Ns IVCONT 100 mls/hr .Q10H ERIN Administration Metronidazole 500 mg in 100 mls @ 100 mls/hr 05/21/20 01:00 05/21/20 05:10 Flagyl IV Infused Q8H ERIN Infusion Levofloxacin 750 mg in 150 mls @ 100 mls/hr 05/21/20 02:00 05/21/20 04:12 Levaquin IV Infused Q24H ERIN Infusion Insulin Glargine 60 unit 05/21/20 00:52 05/21/20 02:28 Insulin Glargine,Hum.Rec.Anlog 100 Unit/Ml 10 Ml Vial SUBCUT 60 unit BEDTIME [facility] Administration Isosorbide Mononitrate 60 mg 05/21/20 01:00 05/21/20 02:20 Isosorbide Mononitrate 60 Mg Tab.Er.24h PO 60 mg BID [facility] Administration Protocol Magnesium Hydroxide 30 ml 05/21/20 00:52 Milk Of Magnesia 30 Ml Oral.Susp PO DAILY PRN constipation Metoprolol Succinate 100 mg 05/21/20 09:00 Metoprolol Succinate Er 100 Mg Tab.Er.24h PO DAILY [facility] Protocol Nitroglycerin 0.4 mg 05/21/20 00:52 Nitroglycerin 0.4 Mg Tab.Subl SUBLINGUAL ONCE PRN chest pain Pharmacy Consult 1 each 05/20/20 13:35 Consult Rx Perform Med Rec MISCELLANE ONCE PRN Consult order Polyethylene Glycol 17 gm 05/21/20 09:00 Polyethylene Glycol 3350 17 Gm Powd.Pack PO DAILY [facility] Pregabalin 75 mg 05/21/20 00:52 05/21/20 02:27 Pregabalin 75 Mg Capsule PO 75 mg BID [facility] Administration Ranolazine 500 mg 05/21/20 00:52 05/21/20 02:29 Ranolazine 500 Mg Tab.Er.12h PO 500 mg BID [facility] Administration Home Medications Medication Instructions Recorded Confirmed Last Taken Type aspirin 81 mg tablet,delayed 81 mg PO DAILY 03/10/20 05/20/20 05/20/20 History release atorvastatin 80 mg tablet 80 mg PO BEDTIME 03/10/20 05/20/20 05/19/20 History ezetimibe 10 mg tablet 10 mg PO DAILY 03/10/20 05/20/20 05/20/20 History isosorbide mononitrate 60 mg 60 mg PO BID 03/10/20 05/20/20 05/20/20 History tablet,extended release 24 hr 60 metformin 1,000 mg tablet 1,000 mg PO BID 03/10/20 05/20/20 05/20/20 History 1000 metoprolol succinate 100 mg 100 mg PO DAILY 03/10/20 05/20/20 05/20/20 History tablet,extended release 24 hr sitagliptin 100 mg tablet 100 mg PO DAILY 03/10/20 05/20/20 05/20/20 History amlodipine 10 mg PO DAILY 05/20/20 05/20/20 05/20/20 History carvedilol 12.5 mg PO BID 05/20/20 05/20/20 05/20/20 History 12.5 insulin glargine 60 unit SUBCUT BEDTIME 05/20/20 05/20/20 05/19/20 History Physical Exam Vital Signs and Narrative: Vital Signs: Last Vital Signs Temp 98.6 F 05/21/20 03:56 Pulse 73 05/21/20 03:56 Resp 18 05/21/20 03:56 BP 146/74 H 05/21/20 03:56 Pulse Ox 97 05/21/20 03:56 Body Mass Index 24.0 Const: General: cooperative and no acute distress Orientation/consciousness: patient oriented x3 Eyes: General: appearance normal, both eyes and all related structures Resp: Effort & Inspection: normal respiratory effort and able to speak in complete sentences Cardio: Rate: regular rate Rhythm: regular rhythm GI: Palpation (GI): Soft to palpation Auscultation: normal bowel sounds Skin: General skin exam: no rashes or lesions noted Neuro: General: patient oriented x3 Cognition (Neuro): normal cognition Extrem: General: Yes normal to inspection and Yes no pedal edema Results Labs CBC and Chem 7: 05/20/20 15:03 05/20/20 18:39 Labs: Laboratory Results - last 24 hr 05/20/20 05/20/20 05/20/20 15:03 15:03 15:03 MCV 89.9 MCH 29.7 MCHC 33.0 RDW 14.6 Plt Count 210 D MPV 10.9 Immature Gran % (Auto) 0.5 H Neut % (Auto) 85.4 H Lymph % (Auto) 8.9 L [place] % (Auto) 4.4 Eos % (Auto) 0.6 Baso % (Auto) 0.2 Lymph # (Auto) 1.1 L [place] # (Auto) 0.6 Eos # (Auto) 0.1 Baso # (Auto) 0.0 Abs Immat Gran (auto) 0.07 H Absolute Neuts (auto) 11.0 H Absolute Nucleated RBC 0.000 Nucleated RBC % (auto) 0.0 PT INR APTT Anion Gap 16 Estim Creat Clear Calc 30.4 Estimated GFR 29 POC Glucose Random Glucose 264 H D Lactic Acid Calcium 9.9 D Magnesium 2.6 Total Bilirubin 0.6 Direct Bilirubin 0.3 AST 14 ALT 14 Alkaline Phosphatase 71 Total Protein 7.5 Albumin 4.5 Lipase Urine Color Urine Appearance Urine pH Ur Specific [place] Urine Protein Urine Glucose (UA) Urine Ketones Urine Blood Urine Nitrite Ur Leukocyte Esterase Urine RBC Urine WBC Ur Squamous Epith Cells Urine Bacteria Urine Opiates Screen Ur Barbiturates Screen Ur Phencyclidine Scrn Ur Amphetamines Screen U Benzodiazepines Scrn Urine Cocaine Screen U Marijuana (THC) Screen COVID-19 (YOLANDA) Negative COVID-19 Clin Com See Note 05/20/20 05/20/20 05/20/20 15:03 15:03 15:03 MCV MCH MCHC RDW Plt Count MPV Immature Gran % (Auto) Neut % (Auto) Lymph % (Auto) [place] % (Auto) Eos % (Auto) Baso % (Auto) Lymph # (Auto) [place] # (Auto) Eos # (Auto) Baso # (Auto) Abs Immat Gran (auto) Absolute Neuts (auto) Absolute Nucleated RBC Nucleated RBC % (auto) PT 13.5 H INR 1.1 APTT 31.9 Anion Gap Estim Creat Clear Calc Estimated GFR POC Glucose Random Glucose Lactic Acid 1.7 Calcium Magnesium Total Bilirubin Direct Bilirubin AST ALT Alkaline Phosphatase Total Protein Albumin Lipase 57 Urine Color Urine Appearance Urine pH Ur Specific [place] Urine Protein Urine Glucose (UA) Urine Ketones Urine Blood Urine Nitrite Ur Leukocyte Esterase Urine RBC Urine WBC Ur Squamous Epith Cells Urine Bacteria Urine Opiates Screen Ur Barbiturates Screen Ur Phencyclidine Scrn Ur Amphetamines Screen U Benzodiazepines Scrn Urine Cocaine Screen U Marijuana (THC) Screen COVID-19 (YOLANDA) COVID-[employer] Com 05/20/20 05/20/20 05/20/20 15:03 15:12 18:12 MCV MCH MCHC RDW Plt Count MPV Immature Gran % (Auto) Neut % (Auto) Lymph % (Auto) [place] % (Auto) Eos % (Auto) Baso % (Auto) Lymph # (Auto) [place] # (Auto) Eos # (Auto) Baso # (Auto) Abs Immat Gran (auto) Absolute Neuts (auto) Absolute Nucleated RBC Nucleated RBC % (auto) PT INR APTT Anion Gap Estim Creat Clear Calc Estimated GFR POC Glucose Random Glucose Lactic Acid Calcium Magnesium Total Bilirubin Direct Bilirubin AST ALT Alkaline Phosphatase Total Protein Albumin Lipase Urine Color YELLOW Urine Appearance CLEAR Urine pH 5.5 Ur Specific [place] 1.020 Urine Protein 1+ H Urine Glucose (UA) 250 H Urine Ketones NEG Urine Blood 2+ H Urine Nitrite NEG Ur Leukocyte Esterase NEG Urine RBC 30-49 H Urine WBC 1-4 Ur Squamous Epith Cells TRACE Urine Bacteria TRACE Urine Opiates Screen Not Detected Ur Barbiturates Screen Not Detected Ur Phencyclidine Scrn Not Detected Ur Amphetamines Screen Not Detected U Benzodiazepines Scrn POSITIVE H Urine Cocaine Screen Not Detected U Marijuana (THC) Screen Not Detected COVID-19 (YOLANDA) Negative COVID-19 Clin Com See Note 05/20/20 05/21/20 20:56 04:13 MCV MCH MCHC RDW Plt Count MPV Immature Gran % (Auto) Neut % (Auto) Lymph % (Auto) [place] % (Auto) Eos % (Auto) Baso % (Auto) Lymph # (Auto) [place] # (Auto) Eos # (Auto) Baso # (Auto) Abs Immat Gran (auto) Absolute Neuts (auto) Absolute Nucleated RBC Nucleated RBC % (auto) PT INR APTT Anion Gap Estim Creat Clear Calc Estimated GFR POC Glucose 151 H Random Glucose Lactic Acid Calcium Magnesium Total Bilirubin Direct Bilirubin AST ALT Alkaline Phosphatase Total Protein Albumin Lipase Urine Color Urine Appearance Urine pH Ur Specific [place] Urine Protein Urine Glucose (UA) Urine Ketones Urine Blood Urine Nitrite Ur Leukocyte Esterase Urine RBC Urine WBC Ur Squamous Epith Cells Urine Bacteria Urine Opiates Screen Ur Barbiturates Screen Ur Phencyclidine Scrn Ur Amphetamines Screen U Benzodiazepines Scrn Urine Cocaine Screen U Marijuana (THC) Screen COVID-19 (YOLANDA) Negative COVID-19 Clin Com See Note Imaging Radiologist's Impressions: Impressions Abdomen/Pelvis CT 05/20/20 13:35 IMPRESSION: 1. Moderate to severe colonic stool burden consistent with constipation. 2. Diffusely decreased liver attenuation suggesting hepatic steatosis. Correlation with liver enzymes recommended. 3. Cholelithiasis. 4. Distended bladder, nonspecific finding. Assessment and Plan (1) Constipation: Qualifiers: Constipation type: other constipation type Qualified Code(s): K59.09 - Other constipation Status: Acute (2) Fecal impaction: Status: Acute (3) Acute hyperkalemia: Status: Acute (4) Acute renal failure: Qualifiers: Acute renal failure type: unspecified Qualified Code(s): N17.9 - Acute kidney failure, unspecified Status: Acute (5) Acute urinary retention: Status: Acute (6) Acute proctitis: Status: Acute 70-year-old male who presents to the hospital with abdominal pain found to have significant constipation or proctitis # abdominal pain/constipation - most likely secondary to constipation as well as proctitis - improved after being disimpacted in the ED - will start him on bowel regimen with MiraLax daily, milk of magnesia p.r.n., and docusate b.i.d. - supportive measures otherwise # proctitis - secondary to hence patient - has leukocytosis, - will start him on Flagyl and levofloxacin - follow cultures # ELAINE - most likely secondary to urinary retention as a result of fecal impaction - a Alanis catheter was placed in the ED and has significant urinary retention - no evidence of urinary tract infection - will start him on IV fluids - Alanis catheter - follow BMP # acute hyperkalemia - potassium of 7.4 with EKG changes - received Kayexalate, insulin, furosemide, and sodium bicarb with improvement of his potassium to 5.5 - will follow BMP # urinary retention - most likely secondary to the fecal impaction - will remove the Alanis catheter prior to discharge attempt a voiding trial # Diabetes - low-dose sliding scale insulin - diabetic diet # hypertension - stable - given his ELAINE will hold off lisinopril at this time - can resume once creatinine function improves slightly # CHF - no exacerbation - will hold off furosemide given ELAINE - resume once creatinine function improves DVT prophylaxis: Heparin subQ
[2020-05-21 05:55] LABS: MANUAL DIFF FLAG NO
[2020-05-21 06:39] LABS: Anion Gap 11 (12-20); Blood Urea Nitrogen 23 mg/dL (9-16); Calcium 8.5 mg/dL (8.4-10.2); Carbon Dioxide 32 mmol/L (22-29); Chloride 104 mmol/L (96-108); Creatinine Clr Calc Pharmacy 48.1; Estimated Glomerular Filt Rate 50; Glucose Random 142 mg/dL (60-115); Potassium 5.2 mmol/L (3.3-5.1); Sodium 142 mmol/L (135-145)
[2020-05-21 06:50] LABS: Basophils Percent Auto 0.2 % (0-2); Eosinophils Absolute Auto 0.2 X10*3/uL (0.0-0.4); Eosinophils Percent Auto 2.7 % (0-4); Hematocrit 34.2 % (42-52); Hemoglobin 10.8 g/dl (14.0-18.0); Imm Gran Abs Auto 0.06 X10*3/uL (0.00-0.03); Imm Gran Pct Auto 0.7 % (0.0-0.4); Lymphocytes Absolute Auto 1.4 X10*3/uL (1.2-4.9); Lymphocytes Percent Auto 16.5 % (20-40); Mean Corpuscular HGB Conc 31.6 g/dl (31.0-36.0); Mean Corpuscular Hemoglobin 28.7 pg (27.0-33.0); Mean Platelet Volume 10.8 fL (9.4-12.4); Monocytes Absolute Auto 0.6 X10*3/uL (0.1-1.2); Monocytes Percent Auto 7.4 % (2-11); Neutrophils Absolute Auto 6.3 X10*3/uL (2.0-8.3); Neutrophils Percent Auto 72.5 % (45-73); Platelet Count 172 X10*3/uL (160-400); Red Blood Count 3.76 X10*6/uL (4.60-5.80); Red Cell Distribution Width 14.6 % (11.0-16.0); White Blood Count 8.6 X10*3/uL (4.8-10.8)
[2020-05-21 07:12] LABS: Glucose, Whole Blood 119 mg/dL (60-115)
[2020-05-21] MEDS: Clopidogrel Bisulfate 75 MG TABLET PO (09:35)
[2020-05-21] MEDS: polyethylene glycoL 3350 17 GM POWD.PACK PO (09:35)
[2020-05-21] MEDS: Docusate Sodium 100 MG CAPSULE PO ×2 (09:35→20:50)
[2020-05-21] MEDS: amLODIPine Besylate 10 MG TABLET PO (09:35)
[2020-05-21] MEDS: Metoprolol Succinate ER 100 MG TAB.ER.24H PO (09:38)
[2020-05-21] MEDS: Ezetimibe 10 MG TABLET PO (09:38)
[2020-05-21] MEDS: Aspirin Enteric Coated 81 MG TABLET.DR PO (09:39)
--- NOTE | 2020-05-21 09:45 | MHC.CM.PN ---
dc plan home with new referral to [facility] ,pt has own transprtain home
[2020-05-21 11:18] LABS: Glucose, Whole Blood 223 mg/dL (60-115)
[2020-05-21] MEDS: Insulin Lispro 100 UNIT/ML 3 ML VIAL SUBCUT (12:16)
--- NOTE | 2020-05-21 13:05 | HO.PM.IMPN ---
Subjective Subjective Date of Service: 05/21/20 <AHMET Amos - Last Filed: 05/21/20 15:02> 05/21/20 <Cameron Lindo MD - Last Filed: 05/22/20 10:10> Interval History: follow up for abdominal pain, constipation, elaine, hyperkalemia abdominal pain improved after BM <AHMET Amos - Last Filed: 05/21/20 15:02> Review of Systems Review of Systems: Yes all other systems are reviewed and are negative <AHMET Amos - Last Filed: 05/21/20 15:02> Constitutional Constitutional: Denies chills and Denies fever(s) <AHMET Amos - Last Filed: 05/21/20 15:02> Cardiovascular Cardiovascular: Denies chest pain <AHMET Amos - Last Filed: 05/21/20 15:02> Respiratory Respiratory: Denies cough <AHMET Amos - Last Filed: 05/21/20 15:02> Gastrointestinal Gastrointestinal: Denies abdominal pain <AHMET Amos - Last Filed: 05/21/20 15:02> Physical Exam Vital Signs: Vital Signs: Last Vital Signs Temp 98.4 F 05/21/20 11:19 Pulse 69 05/21/20 11:19 Resp 19 05/21/20 11:19 BP 119/66 05/21/20 11:19 Pulse Ox 94 05/21/20 11:19 Body Mass Index 24.0 <AHMET Amos - Last Filed: 05/21/20 15:02> Const: Nutritional Appearance: well nourished <AHMET Amos - Last Filed: 05/21/20 15:02> Orientation/consciousness: patient oriented x3 <AHMET Amos - Last Filed: 05/21/20 15:02> HENMT: Head: Yes normocephalic and Yes atraumatic <AHMET Amos Last Filed: 05/21/20 15:02> Eyes: Sclerae: sclerae normal <AHMET Amos - Last Filed: 05/21/20 15:02> Resp: Effort & Inspection: normal respiratory effort and no respiratory distress <AHMET Amos - Last Filed: 05/21/20 15:02> Auscultation: clear to auscultation bilaterally <AHMET Amos Last Filed: 05/21/20 15:02> Cardio: Rate: regular rate <AHMET Amos - Last Filed: 05/21/20 15:02> Rhythm: regular rhythm <AHMET Amos - Last Filed: 05/21/20 15:02> GI: Palpation (GI): Soft to palpation and nontender <AHMET Amos - Last Filed: 05/21/20 15:02> : Other: villarreal present <AHMET Amos - Last Filed: 05/21/20 15:02> Neuro: General: patient oriented x3 <AHMET Amos - Last Filed: 05/21/20 15:02> Cranial nerves: Yes CN's II-XII intact bilaterally and Yes Bilaterally intact EOM present <AHMET Amos Last Filed: 05/21/20 15:02> Extrem: General: Yes normal to inspection <AHMET Amos Last Filed: 05/21/20 15:02> Objective Data Current Medications Generic Name Dose Route Start Last Admin Trade Name Thonyq PRN Reason Stop Dose Admin Acetaminophen 650 mg 05/21/20 00:52 Acetaminophen 325 Mg Tablet PO Q6H PRN Pain, Mild (Pain Scale 1-3) Alprazolam 1 mg 05/21/20 00:52 05/21/20 09:35 Alprazolam 0.5 Mg Tablet PO 1 mg BID ERIN Administration Amlodipine Besylate 10 mg 05/21/20 09:00 05/21/20 09:35 Amlodipine Besylate 10 Mg Tablet PO 10 mg DAILY ERIN Administration Protocol Aspirin 81 mg 05/21/20 09:00 05/21/20 09:39 Aspirin Enteric Coated 81 Mg Tablet. PO 81 mg DAILY ERIN Administration Atorvastatin Calcium 80 mg 05/21/20 00:52 05/21/20 02:28 Atorvastatin Calcium 80 Mg Tablet PO 80 mg BEDTIME ERIN Administration Carvedilol 12.5 mg 05/21/20 00:52 05/21/20 09:38 Carvedilol 12.5 Mg Tablet PO 12.5 mg BID [facility] Administration Protocol Clopidogrel Bisulfate 75 mg 05/21/20 09:00 05/21/20 09:35 Clopidogrel Bisulfate 75 Mg Tablet PO 75 mg DAILY ERIN Administration Docusate Sodium 100 mg 05/21/20 00:52 05/21/20 09:35 Docusate Sodium 100 Mg Capsule PO 100 mg BID ERIN Administration Ezetimibe 10 mg 05/21/20 09:00 05/21/20 09:38 Ezetimibe 10 Mg Tablet PO 10 mg DAILY ERIN Administration Heparin Sodium (Porcine) 5,000 unit 05/21/20 01:00 05/21/20 12:16 Heparin Sodium,Porcine 5,000 Unit/Ml Vial SUBCUT 5,000 unit Q12H ERIN Administration Sodium Chloride 1,000 mls @ 100 mls/hr 05/21/20 00:52 05/21/20 12:21 Ns IVCONT 100 mls/hr .Q10H ERIN Administration Metronidazole 500 mg in 100 mls @ 100 mls/hr 05/21/20 01:00 05/21/20 10:40 Flagyl IV Infused Q8H ERIN Infusion Levofloxacin 750 mg in 150 mls @ 100 mls/hr 05/21/20 02:00 05/21/20 04:12 Levaquin IV Infused Q24H ERIN Infusion Insulin Glargine 60 unit 05/21/20 00:52 05/21/20 02:28 Insulin Glargine,Hum.Rec.Anlog 100 Unit/Ml 10 Ml Vial SUBCUT 60 unit BEDTIME ERIN Administration Insulin Human Lispro 0 unit 05/21/20 07:30 05/21/20 12:16 Insulin Lispro 100 Unit/Ml 3 Ml Vial SUBCUT 4 unit QIDACHS [facility] Administration Protocol Isosorbide Mononitrate 60 mg 05/21/20 01:00 05/21/20 02:20 Isosorbide Mononitrate 60 Mg Tab.Er.24h PO 60 mg BID [facility] Administration Protocol Magnesium Hydroxide 30 ml 05/21/20 00:52 Milk Of Magnesia 30 Ml Oral.Susp PO DAILY PRN constipation Metoprolol Succinate 100 mg 05/21/20 09:00 05/21/20 09:38 Metoprolol Succinate Er 100 Mg Tab.Er.24h PO 100 mg DAILY ERIN Administration Protocol Nitroglycerin 0.4 mg 05/21/20 00:52 Nitroglycerin 0.4 Mg Tab.Subl SUBLINGUAL ONCE PRN chest pain Pharmacy Consult 1 each 05/20/20 13:35 Consult Rx Perform Med Rec MISCELLANE ONCE PRN Consult order Polyethylene Glycol 17 gm 05/21/20 09:00 05/21/20 09:35 Polyethylene Glycol 3350 17 Gm Powd.Pack PO 17 gm DAILY ERIN Administration Pregabalin 75 mg 05/21/20 00:52 05/21/20 09:38 Pregabalin 75 Mg Capsule PO 75 mg BID ERIN Administration Ranolazine 500 mg 05/21/20 00:52 05/21/20 09:38 Ranolazine 500 Mg Tab.Er.12h PO 500 mg BID ERIN Administration <AHMET Amos - Last Filed: 05/21/20 15:02> Labs CBC & Chem 7: : 05/21/20 05:24 05/22/20 05:17 <AHMET Amos - Last Filed: 05/21/20 15:02> Assessment and Plan (1) Constipation: Status: Acute <AHMET Amos - Last Filed: 05/21/20 15:02> (2) Acute hyperkalemia: Status: Acute <AHMET Amos - Last Filed: 05/21/20 15:02> (3) Acute renal failure: Status: Acute <AHMET Amso - Last Filed: 05/21/20 15:02> Assessment and Plan: This is a 70-year-old male who presents to the hospital with abdominal pain found to have significant constipation or proctitis abdominal pain/constipation - most likely secondary to constipation - improved after being disimpacted in the ED - continue bowel regimen with MiraLax daily, milk of magnesia p.r.n., and docusate b.i.d. ELAINE improving Scr down to 1.42 from 2.25 most likely secondary to urinary retention as a result of fecal impaction in the setting of diuretic/timi-i use - a Villarreal catheter was placed in the ED - hold Lasix, lisinopril - continue IVF - follow BMP acute hyperkalemia r/t above ELAINE/TIMI inhibitor Improving. 5.2 this a.m. -hold lisinopril -follow BMP urinary retention Prostate upper limit in normal size CT. fecal impaction likely contributing -start Flomax -remove Villarreal, voiding trial proctitis secondary to constipation -no antibiotics indicated Diabetes Januvia, glipizide, metformin on hold - Continue Lantus, at decreased dose - low-dose sliding scale insulin - diabetic diet hypertension. controlled. - given his ELAINE will hold off lisinopril at this time - can resume once creatinine function improves slightly Chronic CHF no exacerbation - hold furosemide given ELAINE - monitor fluid status closely Sclerotic density in right ilium seen incidentally -recommend outpatient follow-up with PCP to determine need for further workup CAD -continue aspirin, Plavix, statin, Coreg, imdur, ranexa HLD coninue zetia, statin anxiety continue xanax DVT prophylaxis: Heparin subQ Attending; Dr. Lindo <AHMET Amos - Last Filed: 05/21/20 15:02> Late entry for 05/21/2020 Attending Attestation: Patient seen and examined independently and I was present during alanis portion of E/M service. Agree with AHMET Scanlon's history, physical, assessment, and plan. Renal function improving post villarreal. Remove villarreal / voiding trial. Start flomax. Also noted sclerotic lesion on R ilium -- will need outpatient f/u. Abdominal pain improved post disimpaction and bowel regime. Advance diet. If renal function, including hyperK normalizes and no further abd pain, anticipate d/c next 24 hours. Needs to stay inpatient at this time given severity of his initial hyperK (with initial EKG changes of peaked T-waves) and to reassure no reoccurrence of hyperK. <Cameron Lindo MD - Last Filed: 05/22/20 10:10>
[2020-05-21 16:15] LABS: Glucose, Whole Blood 131 mg/dL (60-115)
[2020-05-21 20:47] LABS: Glucose, Whole Blood 141 mg/dL (60-115)
[2020-05-21] MEDS: Insulin Glargine,Hum.rec.anlog 100 UNIT/ML 10 ML VIAL 40 UNIT SUBCUT (20:51)
[2020-05-21] MEDS: 0.9 % Sodium Chloride 1,000 ML 75 ML IVCONT (20:59)
[2020-05-22] VITALS (10 sets, daily range): BP systolic 112–176; BP diastolic 66–88; PULSE 62–93; RESP 16–20; TEMP 35.9–37.2; O2SAT 93–100
[2020-05-22] MEDS: Heparin Sodium,Porcine 5,000 UNIT/ML VIAL 5000 UNIT SUBCUT ×2 (01:07→12:28)
--- NOTE | 2020-05-22 06:23 | PM.EVENT ---
Event Note Date of Service: 05/22/20 Event Note: Urinary Alanis catheter reinserted as patient has retained more than 900 cc of urine and failed voiding trial
[2020-05-22 06:38] LABS: Anion Gap 10 (12-20); Blood Urea Nitrogen 16 mg/dL (9-16); Calcium 7.9 mg/dL (8.4-10.2); Carbon Dioxide 26 mmol/L (22-29); Chloride 107 mmol/L (96-108); Creatinine Clr Calc Pharmacy 70.5; Estimated Glomerular Filt Rate > 60; Glucose Random 111 mg/dL (60-115); Potassium 4.2 mmol/L (3.3-5.1); Sodium 139 mmol/L (135-145)
[2020-05-22 07:17] LABS: Glucose, Whole Blood 111 mg/dL (60-115)
[2020-05-22] MEDS: Ezetimibe 10 MG TABLET PO (08:48)
[2020-05-22] MEDS: Ranolazine 500 MG TAB.ER.12H PO ×2 (08:48→20:31)
[2020-05-22] MEDS: Clopidogrel Bisulfate 75 MG TABLET PO (08:49)
[2020-05-22] MEDS: Isosorbide Mononitrate 60 MG TAB.ER.24H PO ×2 (08:49→20:31)
[2020-05-22] MEDS: ALPRAZolam 0.5 MG TABLET 1 MG PO ×2 (08:50→20:31)
[2020-05-22] MEDS: Docusate Sodium 100 MG CAPSULE PO ×2 (08:50→20:30)
[2020-05-22] MEDS: Aspirin Enteric Coated 81 MG TABLET.DR PO (08:50)
[2020-05-22] MEDS: Tamsulosin HCL 0.4 MG CAPSULE PO (08:51)
[2020-05-22] MEDS: Pregabalin 75 MG CAPSULE PO ×2 (08:51→20:30)
[2020-05-22] MEDS: amLODIPine Besylate 10 MG TABLET PO (08:51)
[2020-05-22] MEDS: polyethylene glycoL 3350 17 GM POWD.PACK PO (08:52)
[2020-05-22] MEDS: carvediloL 12.5 MG TABLET PO ×2 (08:52→20:31)
[2020-05-22] MEDS: 0.9 % Sodium Chloride 1,000 ML 75 ML IVCONT ×2 (10:30→18:15)
[2020-05-22 11:15] LABS: Glucose, Whole Blood 179 mg/dL (60-115)
--- NOTE | 2020-05-22 11:52 | CONS_ITS ---
DATE OF SERVICE: 05/21/2020 REASON FOR CONSULTATION: I was called to see this patient to assist in management of severe hyperkalemia and acute kidney injury. SUMMARY: Issa is a 70-year-old man who has a history of abdominal aneurysm, hypertension, diabetes mellitus, who underwent a coronary angiogram with stent placement about a week ago. He comes to the hospital with abdominal pain and at the time of admission, he was found to have severe hyperkalemia with a potassium of 7.5. He was medically treated and he was found to have significant urinary retention on CAT scan. The Alanis was inserted and 7000 mL of urine was drained. In the next few hours, the serum potassium decreased to 5.5, and this consult has been requested for management of acute kidney injury and hyperkalemia. Ongoing medical problems include history of abdominal aortic aneurysm, coronary artery disease, congestive heart failure, history of hypertension, diabetes mellitus. No known renal issues in the past. FAMILY HISTORY: Significant for hypertension and hyperlipidemia. SURGICAL HISTORY: Includes coronary artery bypass. SOCIAL HISTORY: He has no history of smoking, alcohol abuse, and no history of any drug abuse. ALLERGIES: HE IS ALLERGIC TO SULFA. MEDICATIONS: At the time of admission included amlodipine 10 mg, aspirin, atorvastatin, carvedilol, Plavix, Colace, ezetimibe, insulin, metoprolol, ranolazine, and pregabalin. REVIEW OF SYSTEMS: Positive for abdominal pain. He had no difficulty urination. No nausea or vomiting. No diarrhea. No edema. No shortness of breath. No pain in his toes. No fever. No rash. All other systems were reviewed. PHYSICAL EXAMINATION: GENERAL: Issa is a 70-year-old man who appears comfortable, not in any distress. NECK: Supple. No JVD. HEENT: Mucosa is dry. LUNGS: Air entry equal. No rales. HEART: S1, S2 heard. No gallop. ABDOMEN: Distended, soft, nontender. Bowel sounds heard. NEURO: Alert and awake. No asterixis. EXTREMITIES: No edema. No rash. No clubbing. No evidence of any petechiae or purple toes. VITAL SIGNS: Blood pressure today was 148/77, pulse 68, afebrile with a temperature of 98.2. Intake and output are reviewed. He is on negative fluid balance and he has a Alanis catheter in place. LABS: WBC 8.6, hemoglobin 10.8, platelets 172,000. Sodium 140, potassium 5.2, CO2 of 32, BUN 23, creatinine 1.42. Urinalysis showed 1+ protein with glycosuria and 2+ blood and plenty of rbc's by dipstick. INR 1.1. CT abdomen on admission showed constipation. Bladder was distended. Both kidneys appeared symmetric. No significant hydronephrosis was noted. IMPRESSION: A 70-year-old man with acute kidney injury and severe hyperkalemia, most likely due to urinary retention. Issa had severe urinary retention. Once the Alanis was inserted, he drained 7000 mL which makes obstructive uropathy the most likely etiology for the acute kidney injury. However, he did have an angiogram with angioplasty and stent placement done about a week ago. Therefore, cholesterol emboli and contrast nephropathy should be considered. However, since the BUN and creatinine are rapidly improving after insertion of Laanis, I believe, obstructive uropathy seems more likely than other etiologies. RECOMMENDATION: My recommendation at this point is to keep the Alanis catheter in. We will continue to monitor the serum potassium. Continue with cautious IV hydration. Keep intake more than the output. We will obtain a spot urine for sodium, creatinine, eosinophils, and keep him on a low-potassium diet. Watch for postobstructive diuresis. We will optimize his blood pressure curve. We will hold any TIMI inhibitors and ARBs until the acute kidney injury and hyperkalemia resolved. Further workup will be based on the outcome of the above baseline investigations. We will follow him along with the team. Daniel Davis MD BPA/MODL / [id number]
[2020-05-22] MEDS: Insulin Lispro 100 UNIT/ML 3 ML VIAL SUBCUT ×2 (12:31→16:27)
--- NOTE | 2020-05-22 12:53 | P.PNIM_ITS ---
Subjective Subjective Date of Service: 05/22/20 Interval History: The patient was seen and evaluated this morning Laying in bed, feels comfortable overall, with pain improvement Developed urine retention overnight and Villarreal was placed again Denies any fever, chills or shortness of breath No reported other overnight events. Systemic review: No fever, chills or weakness No chest pain, palpitation No shortness of breath or coughing No abdominal pain, nausea or vomiting No urinary symptoms No any rash or wounds Physical Exam Vital Signs: Vital Signs: Last Vital Signs Temp 98.5 F 05/22/20 11:25 Pulse 62 05/22/20 11:25 Resp 16 05/22/20 11:25 BP 112/66 05/22/20 11:25 Pulse Ox 94 05/22/20 11:25 Body Mass Index 24.0 Const: Other: Constitutional : Alert, oriented, not in distress Neck : Normal inspection, Supple Cardiovascular : RRR, S1 S2, no lower extremity edema Respiratory : Good bilateral air entry, no crackles, wheezes or rhonchi Gastrointestinal: soft, lax, Normal bowel sounds, Non tender Skin : Warm/Dry, No rash, Villarreal catheter in place Neurological : Alert & oriented x3, No focal deficit Objective Data Current Medications Generic Name Dose Route Start Last Admin Trade Name Freq PRN Reason Stop Dose Admin Acetaminophen 650 mg 05/21/20 00:52 Acetaminophen 325 Mg Tablet PO Q6H PRN Pain, Mild (Pain Scale 1-3) Alprazolam 1 mg 05/21/20 00:52 05/22/20 08:50 Alprazolam 0.5 Mg Tablet PO 1 mg BID ERIN Administration Amlodipine Besylate 10 mg 05/21/20 09:00 05/22/20 08:51 Amlodipine Besylate 10 Mg Tablet PO 10 mg DAILY ERIN Administration Protocol Aspirin 81 mg 05/21/20 09:00 05/22/20 08:50 Aspirin Enteric Coated 81 Mg Tablet.Dr PO 81 mg DAILY ERIN Administration Atorvastatin Calcium 80 mg 05/21/20 00:52 05/21/20 20:51 Atorvastatin Calcium 80 Mg Tablet PO 80 mg BEDTIME ERIN Administration Carvedilol 12.5 mg 05/21/20 00:52 05/22/20 08:52 Carvedilol 12.5 Mg Tablet PO 12.5 mg BID ERIN Administration Protocol Clopidogrel Bisulfate 75 mg 05/21/20 09:00 05/22/20 08:49 Clopidogrel Bisulfate 75 Mg Tablet PO 75 mg DAILY ERIN Administration Docusate Sodium 100 mg 05/21/20 00:52 05/22/20 08:50 Docusate Sodium 100 Mg Capsule PO 100 mg BID ERIN Administration Ezetimibe 10 mg 05/21/20 09:00 05/22/20 08:48 Ezetimibe 10 Mg Tablet PO 10 mg DAILY ERIN Administration Heparin Sodium (Porcine) 5,000 unit 05/21/20 01:00 05/22/20 12:28 Heparin Sodium,Porcine 5,000 Unit/Ml Vial SUBCUT 5,000 unit Q12H ERIN Administration Sodium Chloride 1,000 mls @ 75 mls/hr 05/21/20 00:52 05/22/20 10:30 Ns IVCONT 75 mls/hr .[id number] ERIN Administration Insulin Glargine 40 unit 05/21/20 21:00 05/21/20 20:51 Insulin Glargine,Hum.Rec.Anlog 100 Unit/Ml 10 Ml Vial SUBCUT 40 unit BEDTIME ERIN Administration Insulin Human Lispro 0 unit 05/21/20 07:30 05/22/20 12:31 Insulin Lispro 100 Unit/Ml 3 Ml Vial SUBCUT 2 unit QIDACHS [facility] Administration Protocol Isosorbide Mononitrate 60 mg 05/21/20 01:00 05/22/20 08:49 Isosorbide Mononitrate 60 Mg Tab.Er.24h PO 60 mg BID ERIN Administration Protocol Magnesium Hydroxide 30 ml 05/21/20 00:52 Milk Of Magnesia 30 Ml Oral.Susp PO DAILY PRN constipation Nitroglycerin 0.4 mg 05/21/20 00:52 Nitroglycerin 0.4 Mg Tab.Subl SUBLINGUAL ONCE PRN chest pain Pharmacy Consult 1 each 05/20/20 13:35 Consult Rx Perform Med Rec MISCELLANE ONCE PRN Consult order Polyethylene Glycol 17 gm 05/21/20 09:00 05/22/20 08:52 Polyethylene Glycol 3350 17 Gm Powd.Pack PO 17 gm DAILY ERIN Administration Pregabalin 75 mg 05/21/20 00:52 05/22/20 08:51 Pregabalin 75 Mg Capsule PO 75 mg BID ERIN Administration Ranolazine 500 mg 05/21/20 00:52 05/22/20 08:48 Ranolazine 500 Mg Tab.Er.12h PO 500 mg BID ERIN Administration Tamsulosin HCl 0.4 mg 05/22/20 09:00 05/22/20 08:51 Tamsulosin Hcl 0.4 Mg Capsule PO 0.4 mg DAILY ERIN Administration Labs CBC & Chem 7: 05/21/20 05:24 05/22/20 05:17 Microbiology Microbiology Results: Microbiology 05/20/20 15:36 Blood - Venous Blood Culture - Final Coag negative Staphylococcus 05/20/20 15:04 Blood - Venous Blood Culture - Preliminary No growth after 24 hours. Assessment and Plan (1) Constipation: Status: Acute (2) Fecal impaction: Status: Acute (3) Acute hyperkalemia: Status: Acute (4) Acute renal failure: Problem details: ELAINE and hyperkalemia due to urinary obstruction Resolved with villarreal Renal function back to baseline No need for IVF Status: Acute (5) Acute urinary retention: Status: Acute (6) Acute proctitis: Status: Acute Assessment and Plan: This is a 70-year-old male who presents to the hospital with abdominal pain found to have significant constipation or proctitis abdominal pain/constipation Acute proctitis most likely secondary to constipation improved after being disimpacted in the ED continue bowel regimen with MiraLax daily, milk of magnesia p.r.n., and docusate b.i.d. ELAINE improving Scr down to baseline from 2.25 secondary to urinary retention as a result of fecal impaction in the setting of diuretic/timi-i use a Villarreal catheter was placed in the ED hold Lasix, lisinopril DC IVF follow BMP acute hyperkalemia Hold ELAINE/TIMI inhibitor Back to normal follow BMP urinary retention Prostate upper limit in normal size CT. fecal impaction likely contributing Continue Flomax To remove Villarreal by tomorrow morning voiding trial Diabetes Januvia, glipizide, metformin on hold Continue Lantus, at decreased dose low-dose sliding scale insulin diabetic diet hypertension. controlled. given his ELAINE will hold off lisinopril at this time can resume once creatinine function improves slightly Chronic CHF no exacerbation hold furosemide given ELAINE monitor fluid status closely Sclerotic density in right ilium seen incidentally recommend outpatient follow-up with PCP to determine need for further workup CAD continue aspirin, Plavix, statin, Coreg, imdur, ranexa HLD coninue zetia, statin anxiety continue xanax DVT prophylaxis: Heparin subQ
--- NOTE | 2020-05-22 14:05 | PM.PNNEP ---
Subjective Subjective Date of Service: 05/22/20 Interval history: Events noted Nonoliguric Physical Exam Vital Signs: Vital Signs: Last Vital Signs Temp 98.5 F 05/22/20 11:25 Pulse 62 05/22/20 11:25 Resp 16 05/22/20 11:25 BP 112/66 05/22/20 11:25 Pulse Ox 94 05/22/20 11:25 Body Mass Index 24.0 Const: General: comfortable Neck: Neck: Yes supple Cardio: Heart sounds: no rubs Neuro: Motor exam (neuro): no asterixis Objective Data Labs CBC & Chem 7: 05/21/20 05:24 05/22/20 05:17 Labs: Laboratory Results - last 24 hr 05/21/20 05/21/20 05/22/20 16:11 20:44 05:17 Sodium 139 Potassium 4.2 Chloride 107 Carbon Dioxide 26 Anion Gap 10 L BUN 16 Creatinine 0.97 Estim Creat Clear Calc 70.5 Estimated GFR > 60 POC Glucose 131 H 141 H Random Glucose 111 Calcium 7.9 L D 05/22/20 05/22/20 07:13 11:06 Sodium Potassium Chloride Carbon Dioxide Anion Gap BUN Creatinine Estim Creat Clear Calc Estimated GFR POC Glucose 111 179 H Random Glucose Calcium Microbiology Microbiology Results: Microbiology 05/20/20 15:36 Blood - Venous Blood Culture - Final Coag negative Staphylococcus 05/20/20 15:04 Blood - Venous Blood Culture - Preliminary No growth after 24 hours. Assessment & Plan Assessment and plan (1) Acute renal failure: Problem details: ELAINE and hyperkalemia due to urinary obstruction Resolved with villarreal Renal function back to baseline No need for IVF Status: Acute Time Spent With Patient Time: Total time spent is greater than 50% in coordination of care (as documented) at patient's floor/unit and/or counseling patient:
[2020-05-22 16:05] LABS: Glucose, Whole Blood 230 mg/dL (60-115)
[2020-05-22] MEDS: Milk of Magnesia 30 ML ORAL.SUSP PO (16:26)
[2020-05-22] MEDS: Glycerin Adult SUPP.RECT 1 SUPP PR (17:07)
[2020-05-22 20:06] LABS: Glucose, Whole Blood 184 mg/dL (60-115)
[2020-05-22] MEDS: Insulin Glargine,Hum.rec.anlog 100 UNIT/ML 10 ML VIAL 40 UNIT SUBCUT (20:31)
[2020-05-22] MEDS: Atorvastatin Calcium 80 MG TABLET PO (20:31)
[2020-05-23] VITALS (7 sets, daily range): BP systolic 140–171; BP diastolic 69–86; PULSE 62–72; RESP 18–20; TEMP 36.5–37.2; O2SAT 96–98
[2020-05-23] MEDS: Heparin Sodium,Porcine 5,000 UNIT/ML VIAL 5000 UNIT SUBCUT ×2 (00:16→13:41)
[2020-05-23 00:55] LABS: Glucose, Whole Blood 140 mg/dL (60-115)
[2020-05-23] MEDS: 0.9 % Sodium Chloride 1,000 ML 75 ML IVCONT ×2 (03:37→20:53)
[2020-05-23 06:44] LABS: Hemoglobin 9.8 g/dl (14.0-18.0); Mean Corpuscular HGB Conc 32.7 g/dl (31.0-36.0); Mean Corpuscular Hemoglobin 29.1 pg (27.0-33.0); Mean Platelet Volume 10.9 fL (9.4-12.4); Platelet Count 142 X10*3/uL (160-400); Red Blood Count 3.37 X10*6/uL (4.60-5.80); Red Cell Distribution Width 13.8 % (11.0-16.0); White Blood Count 6.5 X10*3/uL (4.8-10.8)
[2020-05-23 07:13] LABS: Alanine Aminotransferase 18 U/L (0-40); Alkaline Phosphatase 72 U/L (39-117); Anion Gap 9 (12-20); Aspartate Amino Transferase 11 U/L (5-37); Bilirubin Direct < 0.2 mg/dL (0.0-0.5); Bilirubin Total < 0.2 mg/dL (0.0-1.0); Blood Urea Nitrogen 14 mg/dL (9-16); Calcium 8.1 mg/dL (8.4-10.2); Carbon Dioxide 26 mmol/L (22-29); Chloride 108 mmol/L (96-108); Creatinine Clr Calc Pharmacy 77.7; Estimated Glomerular Filt Rate > 60; Glucose Random 103 mg/dL (60-115); Potassium 4.3 mmol/L (3.3-5.1); Sodium 139 mmol/L (135-145); Total Protein 5.3 g/dL (6.5-8.0)
[2020-05-23 07:19] LABS: Glucose, Whole Blood 100 mg/dL (60-115)
[2020-05-23 07:21] LABS: Albumin Level 3.2 g/dL (3.5-5.0)
[2020-05-23] MEDS: ALPRAZolam 0.5 MG TABLET 1 MG PO ×2 (08:05→20:50)
[2020-05-23] MEDS: Ranolazine 500 MG TAB.ER.12H PO ×2 (08:05→20:49)
[2020-05-23] MEDS: Ezetimibe 10 MG TABLET PO (08:05)
[2020-05-23] MEDS: Docusate Sodium 100 MG CAPSULE PO ×2 (08:05→20:50)
[2020-05-23] MEDS: Pregabalin 75 MG CAPSULE PO ×2 (08:05→20:49)
[2020-05-23] MEDS: Aspirin Enteric Coated 81 MG TABLET.DR PO (08:05)
[2020-05-23] MEDS: polyethylene glycoL 3350 17 GM POWD.PACK PO (08:05)
[2020-05-23] MEDS: Milk of Magnesia 30 ML ORAL.SUSP PO (08:05)
[2020-05-23] MEDS: Isosorbide Mononitrate 60 MG TAB.ER.24H PO ×2 (08:05→20:49)
[2020-05-23] MEDS: amLODIPine Besylate 10 MG TABLET PO (08:05)
[2020-05-23] MEDS: Clopidogrel Bisulfate 75 MG TABLET PO (08:05)
[2020-05-23] MEDS: carvediloL 12.5 MG TABLET PO ×2 (08:06→20:49)
[2020-05-23 11:20] LABS: Glucose, Whole Blood 145 mg/dL (60-115)
--- NOTE | 2020-05-23 12:14 | PM.PNNEP ---
Subjective Subjective Date of Service: 05/24/20 Interval history: Events noted Nonoliguric Physical Exam Vital Signs: Vital Signs: Last Vital Signs Temp 98.2 F 05/23/20 11:07 Pulse 72 05/23/20 11:07 Resp 20 05/23/20 11:07 BP 145/69 H 05/23/20 11:07 Pulse Ox 96 05/23/20 11:07 Body Mass Index 24.0 Const: General: comfortable Neck: Neck: Yes supple Cardio: Heart sounds: no rubs Neuro: Motor exam (neuro): no asterixis Objective Data Labs CBC & Chem 7: 05/23/20 05:31 05/24/20 05:46 Labs: Laboratory Results - last 24 hr 05/22/20 05/22/20 05/23/20 15:59 19:59 00:51 WBC RBC Hgb Hct MCV MCH MCHC RDW Plt Count MPV Absolute Nucleated RBC Nucleated RBC % (auto) Sodium Potassium Chloride Carbon Dioxide Anion Gap BUN Creatinine Estim Creat Clear Calc Estimated GFR POC Glucose 230 H 184 H 140 H Random Glucose Calcium Total Bilirubin Direct Bilirubin AST ALT Alkaline Phosphatase Total Protein Albumin Prostate Specific Ag 05/23/20 05/23/20 05/23/20 05:31 05:31 06:56 WBC 6.5 RBC 3.37 L Hgb 9.8 L Hct 30.0 L MCV 89.0 MCH 29.1 MCHC 32.7 RDW 13.8 Plt Count 142 L MPV 10.9 Absolute Nucleated RBC 0.000 Nucleated RBC % (auto) 0.0 Sodium 139 Potassium 4.3 Chloride 108 Carbon Dioxide 26 Anion Gap 9 L BUN 14 Creatinine 0.88 Estim Creat Clear Calc 77.7 Estimated GFR > 60 POC Glucose 100 Random Glucose 103 Calcium 8.1 L Total Bilirubin < 0.2 Direct Bilirubin < 0.2 AST 11 ALT 18 Alkaline Phosphatase 72 Total Protein 5.3 L D Albumin 3.2 L D Prostate Specific Ag 7.40 H 05/23/20 11:07 WBC RBC Hgb Hct MCV MCH MCHC RDW Plt Count MPV Absolute Nucleated RBC Nucleated RBC % (auto) Sodium Potassium Chloride Carbon Dioxide Anion Gap BUN Creatinine Estim Creat Clear Calc Estimated GFR POC Glucose 145 H Random Glucose Calcium Total Bilirubin Direct Bilirubin AST ALT Alkaline Phosphatase Total Protein Albumin Prostate Specific Ag Microbiology Microbiology Results: Microbiology 05/20/20 15:04 Blood - Venous Blood Culture - Preliminary No growth after 48 hours. 05/20/20 15:36 Blood - Venous Blood Culture - Final Coag negative Staphylococcus Assessment & Plan Assessment and plan (1) Acute renal failure: Status: Acute Time Spent With Patient Time: Total time spent is greater than 50% in coordination of care (as documented) at patient's floor/unit and/or counseling patient:
--- NOTE | 2020-05-23 13:12 | HO.PM.IMPN ---
Subjective Subjective Date of Service: 05/23/20 Interval History: The patient was seen and evaluated this morning Laying in bed, feels comfortable overall, Alanis in place Denies any fever, chills or shortness of breath No reported other overnight events. Systemic review: No fever, chills or weakness No chest pain, palpitation No shortness of breath or coughing No abdominal pain, nausea or vomiting No urinary symptoms No any rash or wounds Physical Exam Vital Signs: Vital Signs: Last Vital Signs Temp 98.2 F 05/23/20 11:07 Pulse 72 05/23/20 11:07 Resp 20 05/23/20 11:07 BP 145/69 H 05/23/20 11:07 Pulse Ox 96 05/23/20 11:07 Body Mass Index 24.0 Const: Other: Constitutional : Alert, oriented, not in distress Neck : Normal inspection, Supple Cardiovascular : RRR, S1 S2, no lower extremity edema Respiratory : Good bilateral air entry, no crackles, wheezes or rhonchi Gastrointestinal: soft, lax, Normal bowel sounds, Non tender Skin : Warm/Dry, No rash, Alanis catheter in place Neurological : Alert & oriented x3, No focal deficit Objective Data Current Medications Generic Name Dose Route Start Last Admin Trade Name Freq PRN Reason Stop Dose Admin Acetaminophen 650 mg 05/21/20 00:52 Acetaminophen 325 Mg Tablet PO Q6H PRN Pain, Mild (Pain Scale 1-3) Alprazolam 1 mg 05/21/20 00:52 05/23/20 08:05 Alprazolam 0.5 Mg Tablet PO 1 mg BID ERIN Administration Amlodipine Besylate 10 mg 05/21/20 09:00 05/23/20 08:05 Amlodipine Besylate 10 Mg Tablet PO 10 mg DAILY ERIN Administration Protocol Aspirin 81 mg 05/21/20 09:00 05/23/20 08:05 Aspirin Enteric Coated 81 Mg Tablet. PO 81 mg DAILY ERIN Administration Atorvastatin Calcium 80 mg 05/21/20 00:52 05/22/20 20:31 Atorvastatin Calcium 80 Mg Tablet PO 80 mg BEDTIME ERIN Administration Carvedilol 12.5 mg 05/21/20 00:52 05/23/20 08:06 Carvedilol 12.5 Mg Tablet PO 12.5 mg BID ERIN Administration Protocol Clopidogrel Bisulfate 75 mg 05/21/20 09:00 05/23/20 08:05 Clopidogrel Bisulfate 75 Mg Tablet PO 75 mg DAILY ERIN Administration Docusate Sodium 100 mg 05/21/20 00:52 05/23/20 08:05 Docusate Sodium 100 Mg Capsule PO 100 mg BID ERIN Administration Ezetimibe 10 mg 05/21/20 09:00 05/23/20 08:05 Ezetimibe 10 Mg Tablet PO 10 mg DAILY ERIN Administration Heparin Sodium (Porcine) 5,000 unit 05/21/20 01:00 05/23/20 00:16 Heparin Sodium,Porcine 5,000 Unit/Ml Vial SUBCUT 5,000 unit Q12H ERIN Administration Sodium Chloride 1,000 mls @ 75 mls/hr 05/22/20 18:15 05/23/20 03:37 Ns IVCONT 75 mls/hr .[id number] ERIN Administration Insulin Glargine 40 unit 05/21/20 21:00 05/22/20 20:31 Insulin Glargine,Hum.Rec.Anlog 100 Unit/Ml 10 Ml Vial SUBCUT 40 unit BEDTIME ERIN Administration Insulin Human Lispro 0 unit 05/21/20 07:30 05/23/20 12:10 Insulin Lispro 100 Unit/Ml 3 Ml Vial SUBCUT Not Given QIDACHS [facility] Protocol Isosorbide Mononitrate 60 mg 05/21/20 01:00 05/23/20 08:05 Isosorbide Mononitrate 60 Mg Tab.Er.24h PO 60 mg BID ERIN Administration Protocol Magnesium Hydroxide 30 ml 05/21/20 00:52 05/23/20 08:05 Milk Of Magnesia 30 Ml Oral.Susp PO 30 ml DAILY PRN Administration constipation Nitroglycerin 0.4 mg 05/21/20 00:52 Nitroglycerin 0.4 Mg Tab.Subl SUBLINGUAL ONCE PRN chest pain Pharmacy Consult 1 each 05/20/20 13:35 Consult Rx Perform Med Rec MISCELLANE ONCE PRN Consult order Polyethylene Glycol 17 gm 05/21/20 09:00 05/23/20 08:05 Polyethylene Glycol 3350 17 Gm Powd.Pack PO 17 gm DAILY ERIN Administration Pregabalin 75 mg 05/21/20 00:52 05/23/20 08:05 Pregabalin 75 Mg Capsule PO 75 mg BID ERIN Administration Ranolazine 500 mg 05/21/20 00:52 05/23/20 08:05 Ranolazine 500 Mg Tab.Er.12h PO 500 mg BID ERIN Administration Tamsulosin HCl 0.8 mg 05/23/20 21:00 Tamsulosin Hcl 0.4 Mg Capsule PO BEDTIME [facility] Labs CBC & Chem 7: 05/23/20 05:31 05/23/20 05:31 Microbiology Microbiology Results: Microbiology 05/20/20 15:04 Blood - Venous Blood Culture - Preliminary No growth after 48 hours. 05/20/20 15:36 Blood - Venous Blood Culture - Final Coag negative Staphylococcus Assessment and Plan (1) Acute renal failure: Status: Acute (2) Constipation: Status: Acute (3) Fecal impaction: Status: Acute (4) Acute hyperkalemia: Status: Acute (5) Acute urinary retention: Status: Acute Assessment and Plan: This is a 70-year-old male who presents to the hospital with abdominal pain found to have significant constipation or proctitis abdominal pain/constipation Acute proctitis Pain improved significantly secondary to constipation improved after being disimpacted in the ED continue bowel regimen with MiraLax daily, milk of magnesia p.r.n., and docusate b.i.d. ELAINE, resolved improving Scr down to baseline from 2.25 secondary to urinary retention as a result of fecal impaction in the setting of diuretic/timi-i use hold Lasix, lisinopril DC IVF follow BMP acute hyperkalemia Hold ELAINE/TIMI inhibitor Back to normal follow BMP urinary retention Prostate upper limit in normal size CT. fecal impaction likely contributing Continue Flomax To remove Alanis today and monitor Mildly elevated PSA at 7 Diabetes Januvia, glipizide, metformin on hold Continue Lantus, at decreased dose low-dose sliding scale insulin diabetic diet hypertension. controlled. given his ELAINE will hold off lisinopril at this time can resume once creatinine function improves slightly Chronic CHF no exacerbation hold furosemide given ELAINE monitor fluid status closely Sclerotic density in right ilium seen incidentally recommend outpatient follow-up with PCP to determine need for further workup CAD continue aspirin, Plavix, statin, Coreg, imdur, ranexa HLD coninue zetia, statin anxiety continue xanax DVT prophylaxis: Heparin subQ
[2020-05-23 16:03] LABS: Glucose, Whole Blood 127 mg/dL (60-115)
--- NOTE | 2020-05-23 17:31 | PC.NURSE ---
1600 PT STATES NOT EMPTYING BLADDER,FEELS BLADDER IN FULL.GALLO CATH REMOVED THIS AM.BLADDER SCANNED FOR >999ML. NOTIFIED.ORDERED TO RE-INSERT GALLO CATH.#16 FR INSERTED WITHOUT DIFFICULTY.DRAINED 1300ML CLEAR YELLOW URINE.
[2020-05-23 19:39] LABS: Glucose, Whole Blood 149 mg/dL (60-115)
[2020-05-23] MEDS: Insulin Glargine,Hum.rec.anlog 100 UNIT/ML 10 ML VIAL 40 UNIT SUBCUT (20:48)
[2020-05-23] MEDS: Tamsulosin HCL 0.4 MG CAPSULE 0.8 MG PO (20:50)
[2020-05-23] MEDS: Atorvastatin Calcium 80 MG TABLET PO (20:56)
[2020-05-24] VITALS: BP 138/74; PULSE 62; RESP 16; TEMP 36.8; O2SAT 97
[2020-05-24] MEDS: Heparin Sodium,Porcine 5,000 UNIT/ML VIAL 5000 UNIT SUBCUT (02:10)
[2020-05-24 03:04] VITALS: BP 130/71; PULSE 62; RESP 16; TEMP 37; O2SAT 96
[2020-05-24 06:53] VITALS: BP 149/79; PULSE 62; RESP 20; TEMP 36.6; O2SAT 97
[2020-05-24 06:59] LABS: Anion Gap 11 (12-20); Blood Urea Nitrogen 12 mg/dL (9-16); Calcium 8.3 mg/dL (8.4-10.2); Carbon Dioxide 22 mmol/L (22-29); Chloride 110 mmol/L (96-108); Creatinine Clr Calc Pharmacy 82.4; Estimated Glomerular Filt Rate > 60; Glucose Random 85 mg/dL (60-115); Potassium 4.3 mmol/L (3.3-5.1); Sodium 139 mmol/L (135-145)
[2020-05-24 07:09] LABS: Glucose, Whole Blood 91 mg/dL (60-115)
[2020-05-24] MEDS: Clopidogrel Bisulfate 75 MG TABLET PO (07:59)
[2020-05-24] MEDS: ALPRAZolam 0.5 MG TABLET 1 MG PO (07:59)
[2020-05-24] MEDS: Ranolazine 500 MG TAB.ER.12H PO (07:59)
[2020-05-24] MEDS: Isosorbide Mononitrate 60 MG TAB.ER.24H PO (07:59)
[2020-05-24] MEDS: Pregabalin 75 MG CAPSULE PO (07:59)
[2020-05-24] MEDS: Aspirin Enteric Coated 81 MG TABLET.DR PO (07:59)
[2020-05-24] MEDS: polyethylene glycoL 3350 17 GM POWD.PACK PO (07:59)
[2020-05-24] MEDS: amLODIPine Besylate 10 MG TABLET PO (07:59)
[2020-05-24] MEDS: Ezetimibe 10 MG TABLET PO (07:59)
[2020-05-24] MEDS: Docusate Sodium 100 MG CAPSULE PO (07:59)
[2020-05-24] MEDS: carvediloL 12.5 MG TABLET PO (07:59)
[2020-05-24] MEDS: Milk of Magnesia 30 ML ORAL.SUSP PO (08:00)
[2020-05-24] MEDS: 0.9 % Sodium Chloride 1,000 ML 75 ML IVCONT (08:03)
--- NOTE | 2020-05-24 09:38 | MHC.CM.PN ---
Addendum entered by Irasema Arreola 05/24/20 10:35: PT WILL DC HOME TODAY WITH [facility] FOR [facility] WELL A REFERRAL TO [facility]. [facility] INFORMED OF PTS DC VIA [employer]. PT WILL SELF-ARRANGE TRANSPORTATION HOME. Original Note: CM MET WITH PT TO DISCUSS DC PLANNING. PT IS AWARE HE WILL LIKELY BE DISCHARGED TODAY AND THAT A VISITING NURSE WILL BE ARRANGED. PT REPORTS HE DOES NOT HAVE A PREFERENCE REGARDING VN AGENCIES. HE STATES HE HAS HAD SEVERAL DIFFERENT AGENCIES IN THE PAST AND THEY ARE ALL SIMILAR. PER DISCUSSION, CM WILL MAKE REFERRALS TO DETERMINE WHICH AGENCY HAS THE SOONEST AVAILABILITY. PT IS ALSO AWARE A REFERRAL WAS MADE TO [facility] FOR A HOME CARE ASSESSMENT TO BE COMPLETED. CM, WILL INFORM THEM OF PTS DC AND THEY WILL CONTACT PT DIRECTLY. PT REPORTS ONCE HE IS READY TO LEAVE, HE WILL CALL HIS BROTHER FOR TRANSPORT
--- NOTE | 2020-05-24 10:47 | P.F2F_ITS ---
Service Date Service Date: 05/24/20 Reasons for Services Signs and symptoms assessed: Folic catheter size 16 with 10 cc balloon. Can be replaced, can be irrigated if clocked. Reason for half-way: medication management and teach disease management Homebound: Leaving the home is medically contraindicated at this time without the asist of a device and/or another person due th the listed conditions above and below. Certification: Based on the above findings, I certify that this patient is confined to the home and needs intermittent half-way care, physical therapy and/or speech therapy, or continues to need occupational therapy. The patient is under my care, and I have initiated the establishment of the plan of care. The patient will be followed by a physician who will periodically review the plan of care.
--- NOTE | 2020-05-24 10:52 | P.DS_ITS ---
DS: Providers Provider Date of Service: 05/24/20 Date of admission: 05/20/20 20:04 Primary care physician: James Mcgraw MD Consults: 05/21/20 00:52 Consult to Nephrology Routine Consulting Provider: [facility] Reason for consultation: ELAINE Has provider been notified: Yes 05/23/20 16:08 Consult to Urology Routine Consulting Provider: Asif Pennington Reason for consultation: ELAINE 2/2 retention for your kind eval and follow up DS: Diagnosis Discharge Diagnosis (1) Acute renal failure: Status: Acute (2) Constipation: Status: Acute (3) Fecal impaction: Status: Acute (4) Acute hyperkalemia: Status: Acute (5) Acute urinary retention: Status: Acute (6) Acute proctitis: Status: Acute DS: Medications Discharge Medications Home Medications: Home Medications Medication Instructions Recorded Confirmed aspirin 81 mg tablet,delayed 81 mg PO DAILY 03/10/20 05/20/20 release atorvastatin 80 mg tablet 80 mg PO BEDTIME 03/10/20 05/20/20 ezetimibe 10 mg tablet 10 mg PO DAILY 03/10/20 05/20/20 isosorbide mononitrate 60 mg 60 mg PO BID 03/10/20 05/20/20 tablet,extended release 24 hr metformin 1,000 mg tablet 1,000 mg PO BID 03/10/20 05/20/20 sitagliptin 100 mg tablet 100 mg PO DAILY 03/10/20 05/20/20 amlodipine 10 mg PO DAILY 05/20/20 05/20/20 carvedilol 12.5 mg PO BID 05/20/20 05/20/20 insulin glargine 60 unit SUBCUT BEDTIME 05/20/20 05/20/20 Previous Rx's Medication Instructions Recorded glipizide 10 mg tablet 10 mg PO BID 90 Days #180 tab 03/26/20 lisinopril 20 mg tablet 20 mg PO DAILY #90 tab 03/26/20 pregabalin 75 mg capsule 75 mg PO BID 30 Days #60 cap 04/03/20 furosemide 40 mg tablet 40 mg PO DAILY #90 tab 05/08/20 ranolazine 500 mg tablet,extended 500 mg PO BID #180 tab 05/08/20 release,12 hr alprazolam 1 mg tablet 1 mg PO BID #60 tab 05/14/20 clopidogrel 75 mg tablet 75 mg PO DAILY #90 tab 05/14/20 nitroglycerin 0.4 mg sublingual 0.4 mg SUBLINGUAL ONCE PRN #25 tab 05/18/20 tablet docusate sodium 100 mg PO BID #60 cap 05/24/20 polyethylene glycol 3350 17 g PO DAILY #30 ea 05/24/20 tamsulosin 0.8 mg PO BEDTIME #30 cap 05/24/20 DS: Summary Hospital Course Hospital Course: Admissio note HPI With past medical history of AAA, CHF, generalized anxiety disorder, HLD, HTN, type 2 diabetes who presents to the hospital with abdominal pain. Pain is diffuse, 8/10, nonradiating, no worsening or alleviating factors, slightly reli eved after being disimpacted in the ED. Patient reports that he has not moved his bowels in over 5 days, he is feeling very constipated, he has diffuse abdominal pain, no nausea or vomiting, no fever or chills, no chest pain, no weakness numbness or tingling, he does have urinary retention, no lower extremity edema. On arrival to the ED hemodynamically stable with no significant abnormal vitals, labs are significant for WBC count of 12.8, hemoglobin of 12.9, hematocrit 39.1, sodium of 134, potassium 5.5, BUN of 40, creatinine of 2.25 with a baseline around UA that is negative for infection but positive for urine blood and RBC, and UDS that is positive for benzodiazepines Abdominal pelvic CT demonstrated moderate to severe colonic stool burden consistent with constipation, mild diffuse rectal wall thickening suggestive of proctitis, diffusely decreased liver attenuation suggestive of hepatic steatosis, cholelithiasis, distended bladder Hospital course Patient was admitted to the hospital mainly for abdominal pain. A CT scan of the abdomen and pelvis was consistent with fecal impaction, acute proctitis and evidence of urine retention. His blood work showed acute kidney injury with creatinine of 2.2 from baseline of 0.8 associated with hyperkalemia. Treated with IV fluid with good response as kidney function improved back to baseline of 0.8. Fecal disimpaction was done in the emergency and the patient was started on IV fluid and laxatives. Alanis catheter was placed with almost 1 L of urine drained. Patient was started on tamsulosin and attempt to remove the Alanis was failure as he recollected almost 1 L of urine again and the catheter was placed for 2nd time. Urologist Dr. Pennington evaluated the patient and recommended outpatient follow-up in 1 week or so for voiding trials. Patient was able to have bowel movements with no reported abdominal pain any more. CT scan of the abdomen and pelvis showed Sclerotic density in right ilium seen incidentally. recommend outpatient follow-up with PCP to determine need for further workup. Patient will be discharged on laxatives and tamsulosin. To follow-up with PCP and Urology as outpatient. Time Spent with Patient Time attestation: Total time spent providing and/or coordinating discharge services: Discharge coordination time: Greater than 30 minutes Physical Exam Vital Signs: Vital Signs: Last Vital Signs Temp 97.9 F 05/24/20 06:53 Pulse 62 05/24/20 06:53 Resp 20 05/24/20 06:53 BP 149/79 H 05/24/20 06:53 Pulse Ox 97 05/24/20 06:53 Body Mass Index 24.0 Const: Other: Constitutional : Alert, oriented, not in distress Neck : Normal inspection, Supple Cardiovascular : RRR, S1 S2, no lower extremity edema Respiratory : Good bilateral air entry, no crackles, wheezes or rhonchi Gastrointestinal: soft, lax, Normal bowel sounds, Non tender Skin : Warm/Dry, No rash, Alanis catheter in place Neurological : Alert & oriented x3, No focal deficit DS: Data Data Completed and Pending Labs on day of discharge: Laboratory Results - last 24 hr 05/23/20 05/23/20 05/23/20 11:07 15:55 19:31 Sodium Potassium Chloride Carbon Dioxide Anion Gap BUN Creatinine Estim Creat Clear Calc Estimated GFR POC Glucose 145 H 127 H 149 H Random Glucose Calcium 05/24/20 05/24/20 05:46 06:53 Sodium 139 Potassium 4.3 Chloride 110 H Carbon Dioxide 22 Anion Gap 11 L BUN 12 Creatinine 0.83 Estim Creat Clear Calc 82.4 Estimated GFR > 60 POC Glucose 91 Random Glucose 85 Calcium 8.3 L Preliminary micro results at discharge 05/20/20 15:04 Blood Culture - Preliminary Blood - Venous No growth after 48 hours. Discharge Plan Discharge Patient Disposition: Home Health Service Referrals: [facility] [Other] ([facility] WILL CONTACT YOU TO DIRECTLY TO ARRANGE INTAKE ) James Mcgraw MD [Primary Care Provider] - Discharge Medications: New tamsulosin 0.4 mg Capsule 0.8 mg PO BEDTIME Qty: 30 RF: 0 polyethylene glycol 3350 17 gram Powder In Packet 17 g PO DAILY Qty: 30 RF: 0 docusate sodium 100 mg Capsule 100 mg PO BID Qty: 60 RF: 0 Continued glipizide 10 mg tablet 10 mg PO BID 90 Days Qty: 180 RF: 0 lisinopril 20 mg tablet 20 mg PO DAILY Qty: 90 RF: 1 pregabalin 75 mg capsule 75 mg PO BID 30 Days Qty: 60 RF: 1 ranolazine 500 mg tablet extended release 12 hr 500 mg PO BID Qty: 180 RF: 1 furosemide 40 mg tablet 40 mg PO DAILY Qty: 90 RF: 1 clopidogrel 75 mg tablet 75 mg PO DAILY Qty: 90 RF: 1 alprazolam 1 mg tablet 1 mg PO BID Qty: 60 RF: 0 nitroglycerin 0.4 mg tablet, sublingual 0.4 mg sublingual ONCE PRN (Reason: chest pain) Qty: 25 RF: 0 carvedilol 12.5 mg tablet 12.5 mg PO BID RF: 0 amlodipine 10 mg tablet 10 mg PO DAILY RF: 0 insulin glargine 100 unit/mL (3 mL) insulin pen 60 unit subcut BEDTIME RF: 0 atorvastatin 80 mg tablet 80 mg PO BEDTIME RF: 0 aspirin [Adult Low Dose Aspirin] 81 mg tablet,delayed release (DR/EC) 81 mg PO DAILY RF: 0 ezetimibe 10 mg tablet 10 mg PO DAILY RF: 0 isosorbide mononitrate 60 mg tablet extended release 24 hr 60 mg PO BID RF: 0 metformin 1,000 mg tablet 1,000 mg PO BID RF: 0 sitagliptin 100 mg tablet 100 mg PO DAILY RF: 0 Discharge Orders: Discharge Order (Routine); Ordered 05/24/20 Ordered By: Bekah Ross Diet: advance to usual diet Activity on Discharge: As tolerated Stand Alone Forms: Patient Portal Discharge page Care Plan Goals: Read below Health Concerns: Read below Plan of Treatment: You were admitted to the hospital for evaluation of abdominal pain. Images for your abdomen was consistent with severe constipation and urine retention. Blood work was consistent with acute kidney injury. Your treated with IV fluids, fecal disimpaction, laxatives, and placing of Alanis catheter with good response over the course of hospital stay as your kidney function improved back to normal and you were able to move your bowels as the pain resolved. Alanis catheter was removed but you developed retention again so a new [address] Pennington from Urology was involved. Started on new medication called tamsulosin. Assessment: To take laxatives as prescribed with goal of 1-2 bowel movements daily. Start tamsulosin on daily basis. Keep the Alanis in, to follow-up with Dr. Pennington office in 1-2 weeks for voiding trial and removal of the Alanis.
[2020-05-24 11:00] VITALS: BP 117/63; PULSE 59; RESP 20; TEMP 36.6; O2SAT 95
[2020-05-24 11:12] LABS: Glucose, Whole Blood 111 mg/dL (60-115)
--- NOTE | 2020-05-24 11:46 | PM.UROCN ---
History of Present Illness Consult details Consult date: 05/24/20 Narrative: 70-year-old male Urination without significant symptomatology in February of this year Had noted some weakness of stream in the last month Recent angina with stent placement at [facility] approximately a week ago Developed inability to void presented to emergency room with derangement secondary to inability to empty Alanis catheter placed Metabolic resolution Has not been on prostate medications previously These have been started Alanis catheter placed and 1200 cc output Can be seen in office in 2 weeks for voiding trial PMFSH Past Medical History Medical History AAA (abdominal aortic aneurysm) Cardiac angina CHF (congestive heart failure) Generalized anxiety disorder High cholesterol HTN (hypertension) Type 2 diabetes mellitus without complications Family History Family History Mother High blood pressure High cholesterol Surgical History Surgical History History of open heart surgery Social History Social History Housing: House Do you presently have visiting nurse or other home services: No Alcohol intake: never Smoking Status: Never smoker Use of substances other than those prescribed or required for medical reasons: No Currently Displaying Signs/Symptoms of Drug Intoxication Withdrawal: No Have you been hit, kicked, punched, or otherwise hurt by someone within the past year? If so, by whom?: No Do you feel safe in your current relationship?: No Current Relationship Is there a partner from a previous relationship who is making you feel unsafe now?: No Are you made to feel afraid or neglected: No Advance Directives: No Advance Directives Information Provided: No Do you have thoughts of harming others: None Do you have a plan to hurt others: No Plan Recently lost weight without trying: No service: No Meds Allergies Allergy/AdvReac Type Severity Reaction Status Date / Time Sulfa (Sulfonamide Allergy Intermediate HIVES Verified 03/29/20 13:42 Antibiotics) [SULFA (SULFONAMIDE ANTIBIOTICS)] Active Medications: Current Medications Generic Name Dose Route Start Last Admin Trade Name Freq PRN Reason Stop Dose Admin Acetaminophen 650 mg 05/21/20 00:52 Acetaminophen 325 Mg Tablet PO Q6H PRN Pain, Mild (Pain Scale 1-3) Alprazolam 1 mg 05/21/20 00:52 05/24/20 07:59 Alprazolam 0.5 Mg Tablet PO 1 mg BID ERIN Administration Amlodipine Besylate 10 mg 05/21/20 09:00 05/24/20 07:59 Amlodipine Besylate 10 Mg Tablet PO 10 mg DAILY ERIN Administration Protocol Aspirin 81 mg 05/21/20 09:00 05/24/20 07:59 Aspirin Enteric Coated 81 Mg Tablet.Dr PO 81 mg DAILY ERIN Administration Atorvastatin Calcium 80 mg 05/21/20 00:52 05/23/20 20:56 Atorvastatin Calcium 80 Mg Tablet PO 80 mg BEDTIME ERIN Administration Carvedilol 12.5 mg 05/21/20 00:52 05/24/20 07:59 Carvedilol 12.5 Mg Tablet PO 12.5 mg BID ERIN Administration Protocol Clopidogrel Bisulfate 75 mg 05/21/20 09:00 05/24/20 07:59 Clopidogrel Bisulfate 75 Mg Tablet PO 75 mg DAILY ERIN Administration Docusate Sodium 100 mg 05/21/20 00:52 05/24/20 07:59 Docusate Sodium 100 Mg Capsule PO 100 mg BID ERIN Administration Ezetimibe 10 mg 05/21/20 09:00 05/24/20 07:59 Ezetimibe 10 Mg Tablet PO 10 mg DAILY ERIN Administration Heparin Sodium (Porcine) 5,000 unit 05/21/20 01:00 05/24/20 02:10 Heparin Sodium,Porcine 5,000 Unit/Ml Vial SUBCUT 5,000 unit Q12H ERIN Administration Sodium Chloride 1,000 mls @ 75 mls/hr 05/22/20 18:15 05/24/20 08:03 Ns IVCONT 75 mls/hr .[id number] ERIN Administration Insulin Glargine 40 unit 05/21/20 21:00 05/23/20 20:48 Insulin Glargine,Hum.Rec.Anlog 100 Unit/Ml 10 Ml Vial SUBCUT 40 unit BEDTIME ERIN Administration Insulin Human Lispro 0 unit 05/21/20 07:30 05/24/20 07:58 Insulin Lispro 100 Unit/Ml 3 Ml Vial SUBCUT Not Given QIDACHS [facility] Protocol Isosorbide Mononitrate 60 mg 05/21/20 01:00 05/24/20 07:59 Isosorbide Mononitrate 60 Mg Tab.Er.24h PO 60 mg BID REIN Administration Protocol Magnesium Hydroxide 30 ml 05/21/20 00:52 05/24/20 08:00 Milk Of Magnesia 30 Ml Oral.Susp PO 30 ml DAILY PRN Administration constipation Nitroglycerin 0.4 mg 05/21/20 00:52 Nitroglycerin 0.4 Mg Tab.Subl SUBLINGUAL ONCE PRN chest pain Pharmacy Consult 1 each 05/20/20 13:35 Consult Rx Perform Med Rec MISCELLANE ONCE PRN Consult order Polyethylene Glycol 17 gm 05/21/20 09:00 05/24/20 07:59 Polyethylene Glycol 3350 17 Gm Powd.Pack PO 17 gm DAILY ERIN Administration Pregabalin 75 mg 05/21/20 00:52 05/24/20 07:59 Pregabalin 75 Mg Capsule PO 75 mg BID ERIN Administration Ranolazine 500 mg 05/21/20 00:52 05/24/20 07:59 Ranolazine 500 Mg Tab.Er.12h PO 500 mg BID ERIN Administration Tamsulosin HCl 0.8 mg 05/23/20 21:00 05/23/20 20:50 Tamsulosin Hcl 0.4 Mg Capsule PO 0.8 mg BEDTIME ERIN Administration Home Medications Medication Instructions Recorded Confirmed Last Taken Type aspirin 81 mg tablet,delayed 81 mg PO DAILY 03/10/20 05/20/20 05/20/20 History release atorvastatin 80 mg tablet 80 mg PO BEDTIME 03/10/20 05/20/20 05/19/20 History ezetimibe 10 mg tablet 10 mg PO DAILY 03/10/20 05/20/20 05/20/20 History isosorbide mononitrate 60 mg 60 mg PO BID 03/10/20 05/20/20 05/20/20 History tablet,extended release 24 hr 60 metformin 1,000 mg tablet 1,000 mg PO BID 03/10/20 05/20/20 05/20/20 History 1000 sitagliptin 100 mg tablet 100 mg PO DAILY 03/10/20 05/20/20 05/20/20 History amlodipine 10 mg PO DAILY 05/20/20 05/20/20 05/20/20 History carvedilol 12.5 mg PO BID 05/20/20 05/20/20 05/20/20 History 12.5 insulin glargine 60 unit SUBCUT BEDTIME 05/20/20 05/20/20 05/19/20 History Physical Exam Vital Signs: Vital Signs: Last Vital Signs Temp 98 F 05/24/20 11:00 Pulse 59 05/24/20 11:00 Resp 20 05/24/20 11:00 BP 117/63 05/24/20 11:00 Pulse Ox 95 05/24/20 11:00 Body Mass Index 24.0 Const: General: cooperative, healthy appearing, comfortable and no acute distress Nutritional Appearance: average body habitus Orientation/consciousness: oriented to person, oriented to place and oriented to time Eyes: General: appearance normal, both eyes and all related structures Chest: Chest palpation & inspection: normal inspection of the chest Resp: Effort & Inspection: normal respiratory effort Cardio: Rate: regular rate GI: Inspection: Yes normal to inspection Skin: Hair: normal Neuro: General: oriented to person, oriented to place and oriented to time Extrem: General: Yes normal to inspection Results Labs Result diagrams: 05/23/20 05:31 05/24/20 05:46 Labs: Abnormal lab results 05/23/20 05/23/20 05/24/20 Range/Units 15:55 19:31 05:46 Chloride 110 H (96-108) mmol/L Anion Gap 11 L (12-20) POC Glucose 127 H 149 H (60-115) mg/dL Calcium 8.3 L (8.4-10.2) mg/dL BMP 05/24/20 05:46 Sodium 139 Potassium 4.3 Chloride 110 H Carbon Dioxide 22 BUN 12 Creatinine 0.83 Calcium 8.3 L Urine 05/20/20 Range/Units 15:03 Urine Color YELLOW Urine Appearance CLEAR Urine pH 5.5 (5.0-8.0) Ur Specific Johnston 1.020 (1.005-1.025) Urine Protein 1+ H (NEG-TRACE) MG/DL Urine Glucose (UA) 250 H (NEG) MG/DL All other labs normal. Assessment and Plan (1) Acute urinary retention: Status: Acute (2) Acute renal failure: Qualifiers: Acute renal failure type: unspecified Qualified Code(s): N17.9 - Acute kidney failure, unspecified Status: Acute Alanis catheter placed Flomax and finasteride started Voiding trial as outpatient
[2020-05-24] MEDS: Finasteride 5 MG TABLET PO (12:44)
== END 2020-05-24 13:47 | disposition home health service (06) | DRG 389 ==
LOC: HO.ED 16:03 → HO.EDOVER 21:09 → HO.IMC 05-21 00:25
PROVIDERS: Family Medicine; Physician Assistant Medical; Admitting Provider Internal Medicine; Emergency Provider Emergency Medicine; PCP Internal Medicine; Visit Provider Student in an Organized Health Care Education/Training Program
DX: K56.41 Fecal impaction (principal); N17.9 Acute kidney failure, unspecified; I50.22 Chronic systolic (congestive) heart failure; E87.5 Hyperkalemia; K62.89 Other specified diseases of anus and rectum; E11.42 Type 2 diabetes mellitus with diabetic polyneuropathy; Z95.1 Presence of aortocoronary bypass graft; I25.10 Atherosclerotic heart disease of native coronary artery without angina pectoris; I71.4 Abdominal aortic aneurysm, without rupture; F41.9 Anxiety disorder, unspecified; E78.5 Hyperlipidemia, unspecified; I11.0 Hypertensive heart disease with heart failure; R33.9 Retention of urine, unspecified; Z20.822 Contact with and (suspected) exposure to COVID-19; Z88.2 Allergy status to sulfonamides; Z79.4 Long term (current) use of insulin; Z79.02 Long term (current) use of antithrombotics/antiplatelets; Z79.82 Long term (current) use of aspirin; Z79.899 Other long term (current) drug therapy
CPT/HCPCS: 36415; 74018; 74176; 80048; 80076; 80307; 81001; 82947; 83605; 83690; 83735; 84132; 84153; 85025; 85027; 85610; 85730; 87040; 87147; 87205; 87635; 93005; 96361; 96365; 96375; 97161; 99285; 99291; C1758; J1956; J2270; J2405; J2543

== ENCOUNTER 2020-05-31 03:16 | Emergency (ER) | payer MEDICARE, SELFPAY ==
--- NOTE | ~2020-05-31 | XR_ITS ---
EXAMINATION: CHEST 1 VIEW CLINICAL INFORMATION: Unresponsive. Concern for aspiration. COMPARISON: 03/19/2020. TECHNIQUE: An AP view of the chest is provided. FINDINGS: The cardiac silhouette is stable. Intact midline sternal wires are present. The mediastinal and hilar contours are unremarkable. There are neither pleural effusions nor pneumothoraces. There are no consolidations. The osseous structures are stable. XR/XR chest 1V IMPRESSION: No evidence for acute disease.
[2020-05-31 03:24] VITALS: BP 130/65; PULSE 66; RESP 16; O2SAT 97; BMI 23.6
[2020-05-31 03:27] VITALS: BP 146/78; PULSE 68; O2SAT 100
--- NOTE | 2020-05-31 03:27 | ECG_ITS ---
Test Reason : GENERAL Blood Pressure : / mmHG Vent. Rate : 062 BPM Atrial Rate : 062 BPM P-R Int : 168 ms QRS Dur : 114 ms QT Int : 464 ms P-R-T Axes : 071 003 050 degrees QTc Int : 470 ms Normal sinus rhythm Possible Left atrial enlargement Abnormal ECG When compared with ECG of 20-MAY-2020 14:37, No significant change was found Referred By: Bernice Saeed Electronically Signed By:Malcom Marino
[2020-05-31 03:51] LABS: Glucose, Whole Blood 117 mg/dL (60-115)
[2020-05-31 04:02] VITALS: BP 131/69; PULSE 61; RESP 16; TEMP 37.1; O2SAT 99
[2020-05-31 04:11] LABS: Basophils Percent Auto 0.4 % (0-2); Eosinophils Absolute Auto 0.2 X10*3/uL (0.0-0.4); Eosinophils Percent Auto 2.3 % (0-4); Hematocrit 33.8 % (42-52); Imm Gran Abs Auto 0.04 X10*3/uL (0.00-0.03); Imm Gran Pct Auto 0.5 % (0.0-0.4); Lymphocytes Absolute Auto 1.5 X10*3/uL (1.2-4.9); MANUAL DIFF FLAG NO; Mean Corpuscular HGB Conc 32.5 g/dl (31.0-36.0); Mean Corpuscular Hemoglobin 29.4 pg (27.0-33.0); Mean Corpuscular Volume 90.4 fL (80-98); Mean Platelet Volume 10.4 fL (9.4-12.4); Monocytes Absolute Auto 0.5 X10*3/uL (0.1-1.2); Monocytes Percent Auto 5.7 % (2-11); Neutrophils Absolute Auto 5.9 X10*3/uL (2.0-8.3); Neutrophils Percent Auto 72.1 % (45-73); Platelet Count 192 X10*3/uL (160-400); Red Blood Count 3.74 X10*6/uL (4.60-5.80); Red Cell Distribution Width 14.3 % (11.0-16.0); White Blood Count 8.1 X10*3/uL (4.8-10.8)
[2020-05-31 04:12] LABS: Glucose Urine UA 100 MG/DL (NEG); Leukocyte Esterase Urine NEG (NEG); Nitrite Urine NEG (NEG); PH 5.5 (5.0-8.0); Specific Gravity - Urine >= 1.030 (1.005-1.025); Urine Blood 3+ (NEG); Urine Ketones NEG (NEG); Urine Protein 2+ MG/DL (NEG-TRACE)
[2020-05-31 04:14] LABS: Appearance Urine HAZY; Color Urine AMBER
[2020-05-31 04:17] LABS: INTERNATIONAL NORM RATIO 1.1 (0.9-1.1); Prothrombin Time 13.2 SEC (10.8-13.0)
[2020-05-31 04:19] LABS: Partial Thromboplastin Time 34.4 SEC (24.1-38.0)
[2020-05-31 04:19] LABS: RBC Urine 30-49 /HPF (0); Squamous Epithelial Cell Urine 1+ /LPF; Uric Acid Crystals Urine 2+ /LPF
[2020-05-31 04:39] LABS: Anion Gap 16 (12-20); Blood Urea Nitrogen 21 mg/dL (9-16); Calcium 8.9 mg/dL (8.4-10.2); Carbon Dioxide 21 mmol/L (22-29); Chloride 106 mmol/L (96-108); Creatinine Clr Calc Pharmacy 62.7; Estimated Glomerular Filt Rate > 60; Glucose Random 102 mg/dL (60-115); Potassium 4.2 mmol/L (3.3-5.1); Sodium 139 mmol/L (135-145)
[2020-05-31 04:43] LABS: Troponin-I High Sensitivity 6.7 ng/L (<3.5-35.0)
[2020-05-31 05:03] LABS: Glucose, Whole Blood 58 mg/dL (60-115)
--- NOTE | 2020-05-31 05:13 | ED_ITS ---
HPI - General Adult General Chief complaint: General Medical Stated complaint: HYPOGLYCEMIA, POC 49 THEN 110 Time Seen by Provider: 05/31/20 03:27 Source: EMS Mode of arrival: EMS Limitations: no limitations History of Present Illness HPI narrative: Patient comes to the emergency room via EMS here, patient had a hypoglycemic event. Patient's blood sugar was 49, given glucose by EMS, then it increased to 110. Patient states that he takes insulin at home. This is the 1st time that patient has a hypoglycemic event. States that yesterday he had a GI study done, he was asked to fast. Patient states that after his studies, he ate, check his blood sugar, he was doing well. Prior to going to sleep his blood sugar was 238. Patient does not remember what happened or how the ambulance got called, thinks his brother called. At this time, patient feels better, tired and a bit shaky but otherwise well. Patient denies any recent illnesses. Related Data Home Medications Medication Instructions Recorded Confirmed aspirin 81 mg tablet,delayed 81 mg PO DAILY 03/10/20 05/20/20 release atorvastatin 80 mg tablet 80 mg PO BEDTIME 03/10/20 05/20/20 metformin 1,000 mg tablet 1,000 mg PO BID 03/10/20 05/20/20 amlodipine 10 mg PO DAILY 05/20/20 05/20/20 carvedilol 12.5 mg PO BID 05/20/20 05/20/20 insulin glargine 60 unit SUBCUT BEDTIME 05/20/20 05/20/20 Previous Rx's Medication Instructions Recorded glipizide 10 mg tablet 10 mg PO BID 90 Days #180 tab 03/26/20 lisinopril 20 mg tablet 20 mg PO DAILY #90 tab 03/26/20 pregabalin 75 mg capsule 75 mg PO BID 30 Days #60 cap 04/03/20 furosemide 40 mg tablet 40 mg PO DAILY #90 tab 05/08/20 ranolazine 500 mg tablet,extended 500 mg PO BID #180 tab 05/08/20 release,12 hr alprazolam 1 mg tablet 1 mg PO BID #60 tab 05/14/20 clopidogrel 75 mg tablet 75 mg PO DAILY #90 tab 05/14/20 nitroglycerin 0.4 mg sublingual 0.4 mg SUBLINGUAL ONCE PRN #25 tab 05/18/20 tablet docusate sodium 100 mg PO BID #60 cap 05/24/20 polyethylene glycol 3350 17 g PO DAILY #30 ea 05/24/20 tamsulosin 0.8 mg PO BEDTIME #30 cap 05/24/20 blood sugar diagnostic #100 ea 05/29/20 ezetimibe 10 mg tablet 10 mg PO DAILY #90 tab 05/29/20 isosorbide mononitrate 60 mg 60 mg PO BID #180 tab 05/29/20 tablet,extended release 24 hr sitagliptin 100 mg tablet 100 mg PO DAILY #90 tab 05/29/20 glucagon HCl [Glucagon (HCl) 1 mg SUBCUT Q20M PRN #1 ea 05/31/20 Emergency Kit] Allergies Allergy/AdvReac Type Severity Reaction Status Date / Time Sulfa (Sulfonamide Allergy Intermediate HIVES Verified 03/29/20 13:42 Antibiotics) [SULFA (SULFONAMIDE ANTIBIOTICS)] Review of Systems Review of Systems: Constitutional : No Weight loss, No Fever, No Chills, No Night Sweats, No Fatigue, No Malaise ENT/Mouth : No Hearing loss, No Ear Pain, No Nasal Congestion, No Sinus Pain, No Hoarseness, No sore throat, No Rhinorrhea, No Swallowing Difficulty Eyes: No Eye Pain, No Swelling, No Redness, No Foreign Body, No Discharge, No Vision Changes Cardiovascular : No Chest Pain, No SOB, No Dyspnea on Exertion, No Orthopnea, No Edema, No Palpitations Respiratory : No Cough, No Sputum, No Wheezing, No Smoke Exposure, No Dyspnea Gastrointestinal : No Nausea, No Vomiting, No Diarrhea, No Constipation, No abdominal Pain, No Hematochezia, No Melena Genitourinary : no irregular bleeding, No Dysuria, No Urinary Frequency, No Hematuria, No Urinary Incontinence, No Urgency, No Flank Pain, No Urinary Flow Changes, No Hesitancy Musculoskeletal : No joint pain, No Myalgias, No Joint Swelling Skin : No Skin Lesions, No rash Neuro : No Weakness, No Numbness, No Paresthesias, No Loss of Consciousness due to hypoglycemia, No Dizziness, No Headache Psych : No Anxiety/Panic, No Depression, No SI/HI/AH/VH, No Social Issues, Heme/Lymph: No Bruising, No Bleeding,No Lymphadenopathy Endocrine : Low blood sugar, feeling very cold PMFSH Past Medical History Medical History AAA (abdominal aortic aneurysm) Cardiac angina CHF (congestive heart failure) Generalized anxiety disorder High cholesterol HTN (hypertension) Type 2 diabetes mellitus without complications Surgical History History of open heart surgery Family History Family History Mother High blood pressure High cholesterol Social History Social History Housing: House Alcohol intake: unknown Smoking Status: Smoker, status unknown Use of substances other than those prescribed or required for medical reasons: No Advance Directives: No Advance Directives Information Provided: No Advance Directives on File: No service: No Physical Exam Vital Signs: Vital Signs: Last Vital Signs Temp 98.0 F 05/31/20 08:15 Pulse 71 05/31/20 08:15 Resp 15 05/31/20 08:15 BP 139/68 05/31/20 08:15 Pulse Ox 99 05/31/20 08:15 Body Mass Index 23.6 Appearance: Alert. Oriented X3. No acute distress. Eyes: Pupils equal, round and reactive to light. ENT: Pharynx normal. Neck: Normal inspection. Neck supple. No lymph nodes noted. No crepitus CVS: Normal heart rate and rhythm. Pulses normal. Normal S1 and S2, loud +4 systolic murmur left sternal border. Respiratory: No respiratory distress. Breath sounds normal. No Wheezing. No rales Abdomen: Soft and nontender. No rigidity. No distention. good BS x4 Skin: Skin warm and dry. Normal skin color. Normal skin turgor. Extremities: No lower extremity edema. No lower extremity edema. No Lacerations. No Rash Neuro: Oriented X 3. No motor deficit. No sensory deficit. Moving all extermities. No slurred speech. Course Course Course Narrative: Patient received D50, 8, had p.o. a headache. At this time, patient states that he feels better, blood glucose 203. Blood glucose will be checked every 20 minutes, if patient remains asymptomatic and the glucose remai ns steady, he may be discharged home. Patient's hypoglycemia is likely secondary to not having his regular meals yesterday due to the GI procedure he had. Patient instructed to have glucose with him at all times . sign out given to Dr. Bautista 18:00, patient's blood glucose 195, patient is asymptomatic. Patient ready for discharge. Patient was given a prescription for IM glucagon increase of emergency/severe hypoglycemia. At the moment, we will not change patient's regular insulin dose, patient has been well controlled at his current dose except for yesterday that he skipped a full meal. Patient instructed to resume his normal meals and not to skip meals, if he needs to do so for medical tests, he needs to run it by his primary care physician to adjust his insulin. Medical Decision Making Lab Data Result diagrams: 05/31/20 03:58 05/31/20 03:58 Labs: Lab Results 05/31/20 05/31/20 05/31/20 Range/Units 03:46 03:58 03:58 WBC 8.1 (4.8-10.8) X10*3/uL RBC 3.74 L (4.60-5.80) X10*6/uL Hgb 11.0 L (14.0-18.0) g/dl Hct 33.8 L (42-52) % MCV 90.4 (80-98) fL MCH 29.4 (27.0-33.0) pg MCHC 32.5 (31.0-36.0) g/dl RDW 14.3 (11.0-16.0) % Plt Count 192 D (160-400) X10*3/uL MPV 10.4 (9.4-12.4) fL Immature Gran % (Auto) 0.5 H (0.0-0.4) % Neut % (Auto) 72.1 (45-73) % Lymph % (Auto) 19.0 L (20-40) % [place] % (Auto) 5.7 (2-11) % Eos % (Auto) 2.3 (0-4) % Baso % (Auto) 0.4 (0-2) % Lymph # (Auto) 1.5 (1.2-4.9) X10*3/uL [place] # (Auto) 0.5 (0.1-1.2) X10*3/uL Eos # (Auto) 0.2 (0.0-0.4) X10*3/uL Baso # (Auto) 0.0 (0.0-0.2) X10*3/uL Abs Immat Gran (auto) 0.04 H (0.00-0.03) X10*3/uL Absolute Neuts (auto) 5.9 (2.0-8.3) X10*3/uL Absolute Nucleated RBC 0.000 (0.0-0.012) X10*3/uL Nucleated RBC % (auto) 0.0 (0.0-0.2) /100WBC PT 13.2 H (10.8-13.0) SEC INR 1.1 (0.9-1.1) APTT 34.4 (24.1-38.0) SEC Sodium (135-145) mmol/L Potassium (3.3-5.1) mmol/L Chloride (96-108) mmol/L Carbon Dioxide (22-29) mmol/L Anion Gap (12-20) BUN (9-16) mg/dL Creatinine (0.5-1.4) mg/dL Estim Creat Clear Calc Estimated GFR POC Glucose 117 H (60-115) mg/dL Random Glucose (60-115) mg/dL Calcium (8.4-10.2) mg/dL Troponin I High Sens (<3.5-35.0) ng/L Urine Color Urine Appearance Urine pH (5.0-8.0) Ur Specific [place] (1.005-1.025) Urine Protein (NEG-TRACE) MG/DL Urine Glucose (UA) (NEG) MG/DL Urine Ketones (NEG) MG/DL Urine Blood (NEG) Urine Nitrite (NEG) Ur Leukocyte Esterase (NEG) Urine RBC (0) /HPF Urine WBC (0-4) /HPF Ur Squamous Epith Cells /LPF Uric Acid Crystals /LPF Urine Bacteria /LPF 05/31/20 05/31/20 05/31/20 Range/Units 03:58 03:58 04:05 WBC (4.8-10.8) X10*3/uL RBC (4.60-5.80) X10*6/uL Hgb (14.0-18.0) g/dl Hct (42-52) % MCV (80-98) fL MCH (27.0-33.0) pg MCHC (31.0-36.0) g/dl RDW (11.0-16.0) % Plt Count (160-400) X10*3/uL MPV (9.4-12.4) fL Immature Gran % (Auto) (0.0-0.4) % Neut % (Auto) (45-73) % Lymph % (Auto) (20-40) % [place] % (Auto) (2-11) % Eos % (Auto) (0-4) % Baso % (Auto) (0-2) % Lymph # (Auto) (1.2-4.9) X10*3/uL [place] # (Auto) (0.1-1.2) X10*3/uL Eos # (Auto) (0.0-0.4) X10*3/uL Baso # (Auto) (0.0-0.2) X10*3/uL Abs Immat Gran (auto) (0.00-0.03) X10*3/uL Absolute Neuts (auto) (2.0-8.3) X10*3/uL Absolute Nucleated RBC (0.0-0.012) X10*3/uL Nucleated RBC % (auto) (0.0-0.2) /100WBC PT (10.8-13.0) SEC INR (0.9-1.1) APTT (24.1-38.0) SEC Sodium 139 (135-145) mmol/L Potassium 4.2 (3.3-5.1) mmol/L Chloride 106 (96-108) mmol/L Carbon Dioxide 21 L (22-29) mmol/L Anion Gap 16 (12-20) BUN 21 H D (9-16) mg/dL Creatinine 1.09 (0.5-1.4) mg/dL Estim Creat Clear Calc 62.7 Estimated GFR > 60 POC Glucose (60-115) mg/dL Random Glucose 102 (60-115) mg/dL Calcium 8.9 D (8.4-10.2) mg/dL Troponin I High Sens 6.7 (<3.5-35.0) ng/L Urine Color JEANCARLOS Urine Appearance HAZY Urine pH 5.5 (5.0-8.0) Ur Specific [place] >= 1.030 H (1.005-1.025) Urine Protein 2+ H (NEG-TRACE) MG/DL Urine Glucose (UA) 100 H (NEG) MG/DL Urine Ketones NEG (NEG) MG/DL Urine Blood 3+ H (NEG) Urine Nitrite NEG (NEG) Ur Leukocyte Esterase NEG (NEG) Urine RBC 30-49 H (0) /HPF Urine WBC 1-4 (0-4) /HPF Ur Squamous Epith Cells 1+ /LPF Uric Acid Crystals 2+ /LPF Urine Bacteria NONE /LPF 05/31/20 05/31/20 05/31/20 Range/Units 05:00 05:56 07:08 WBC (4.8-10.8) X10*3/uL RBC (4.60-5.80) X10*6/uL Hgb (14.0-18.0) g/dl Hct (42-52) % MCV (80-98) fL MCH (27.0-33.0) pg MCHC (31.0-36.0) g/dl RDW (11.0-16.0) % Plt Count (160-400) X10*3/uL MPV (9.4-12.4) fL Immature Gran % (Auto) (0.0-0.4) % Neut % (Auto) (45-73) % Lymph % (Auto) (20-40) % [place] % (Auto) (2-11) % Eos % (Auto) (0-4) % Baso % (Auto) (0-2) % Lymph # (Auto) (1.2-4.9) X10*3/uL [place] # (Auto) (0.1-1.2) X10*3/uL Eos # (Auto) (0.0-0.4) X10*3/uL Baso # (Auto) (0.0-0.2) X10*3/uL Abs Immat Gran (auto) (0.00-0.03) X10*3/uL Absolute Neuts (auto) (2.0-8.3) X10*3/uL Absolute Nucleated RBC (0.0-0.012) X10*3/uL Nucleated RBC % (auto) (0.0-0.2) /100WBC PT (10.8-13.0) SEC INR (0.9-1.1) APTT (24.1-38.0) SEC Sodium (135-145) mmol/L Potassium (3.3-5.1) mmol/L Chloride (96-108) mmol/L Carbon Dioxide (22-29) mmol/L Anion Gap (12-20) BUN (9-16) mg/dL Creatinine (0.5-1.4) mg/dL Estim Creat Clear Calc Estimated GFR POC Glucose 58 L* 59 L* 203 H (60-115) mg/dL Random Glucose (60-115) mg/dL Calcium (8.4-10.2) mg/dL Troponin I High Sens (<3.5-35.0) ng/L Urine Color Urine Appearance Urine pH (5.0-8.0) Ur Specific [place] (1.005-1.025) Urine Protein (NEG-TRACE) MG/DL Urine Glucose (UA) (NEG) MG/DL Urine Ketones (NEG) MG/DL Urine Blood (NEG) Urine Nitrite (NEG) Ur Leukocyte Esterase (NEG) Urine RBC (0) /HPF Urine WBC (0-4) /HPF Ur Squamous Epith Cells /LPF Uric Acid Crystals /LPF Urine Bacteria /LPF / Range/Units 07:32 WBC (4.8-10.8) X10*3/uL RBC (4.60-5.80) X10*6/uL Hgb (14.0-18.0) g/dl Hct (42-52) % MCV (80-98) fL MCH (27.0-33.0) pg MCHC (31.0-36.0) g/dl RDW (11.0-16.0) % Plt Count (160-400) X10*3/uL MPV (9.4-12.4) fL Immature Gran % (Auto) (0.0-0.4) % Neut % (Auto) (45-73) % Lymph % (Auto) (20-40) % [place] % (Auto) (2-11) % Eos % (Auto) (0-4) % Baso % (Auto) (0-2) % Lymph # (Auto) (1.2-4.9) X10*3/uL [place] # (Auto) (0.1-1.2) X10*3/uL Eos # (Auto) (0.0-0.4) X10*3/uL Baso # (Auto) (0.0-0.2) X10*3/uL Abs Immat Gran (auto) (0.00-0.03) X10*3/uL Absolute Neuts (auto) (2.0-8.3) X10*3/uL Absolute Nucleated RBC (0.0-0.012) X10*3/uL Nucleated RBC % (auto) (0.0-0.2) /100WBC PT (10.8-13.0) SEC INR (0.9-1.1) APTT (24.1-38.0) SEC Sodium (135-145) mmol/L Potassium (3.3-5.1) mmol/L Chloride (96-108) mmol/L Carbon Dioxide (22-29) mmol/L Anion Gap (12-20) BUN (9-16) mg/dL Creatinine (0.5-1.4) mg/dL Estim Creat Clear Calc Estimated GFR POC Glucose 190 H (60-115) mg/dL Random Glucose (60-115) mg/dL Calcium (8.4-10.2) mg/dL Troponin I High Sens (<3.5-35.0) ng/L Urine Color Urine Appearance Urine pH (5.0-8.0) Ur Specific [place] (1.005-1.025) Urine Protein (NEG-TRACE) MG/DL Urine Glucose (UA) (NEG) MG/DL Urine Ketones (NEG) MG/DL Urine Blood (NEG) Urine Nitrite (NEG) Ur Leukocyte Esterase (NEG) Urine RBC (0) /HPF Urine WBC (0-4) /HPF Ur Squamous Epith Cells /LPF Uric Acid Crystals /LPF Urine Bacteria /LPF Imaging Data Chest x-ray: Radiologist's impression: FINDINGS: The cardiac silhouette is stable. Intact midline sternal wires are present. The mediastinal and hilar contours are unremarkable. There are neither pleural effusions nor pneumothoraces. There are no consolidations. The osseous structures are stable. XR/XR chest 1V IMPRESSION: No evidence for acute disease. ECG Data Attestation: I personally reviewed and interpreted this ECG as follows: (Sinus rhythm, heart rate 62, nonspecific ST segment depression V4 through V6, less than 1 mm) Discharge Plan Discharge Clinical Impression: Hypoglycemia Patient Disposition: Home, Self-Care Instructions: Hypoglycemia in a Person with Diabetes (ED) Additional Instructions: Please follow-up with your primary care physician tomorrow. If you have any worsening or new symptoms, please return to the emergency room or call 911 Prescriptions: New Glucagon (HCl) Emergency Kit 1 mg recon soln 1 mg subcut Q20M PRN (Reason: hypoglycemia) Qty: 1 RF: 0 No Action glipizide 10 mg tablet 10 mg PO BID 90 Days Qty: 180 RF: 0 lisinopril 20 mg tablet 20 mg PO DAILY Qty: 90 RF: 1 pregabalin 75 mg capsule 75 mg PO BID 30 Days Qty: 60 RF: 1 ranolazine 500 mg tablet extended release 12 hr 500 mg PO BID Qty: 180 RF: 1 furosemide 40 mg tablet 40 mg PO DAILY Qty: 90 RF: 1 clopidogrel 75 mg tablet 75 mg PO DAILY Qty: 90 RF: 1 alprazolam 1 mg tablet 1 mg PO BID Qty: 60 RF: 0 nitroglycerin 0.4 mg tablet, sublingual 0.4 mg sublingual ONCE PRN (Reason: chest pain) Qty: 25 RF: 0 (DME) FreeStyle Lite Strips Strip See Rx Instructions .ROUTE .MEDSUPPLY Qty: 100 RF: 11 isosorbide mononitrate 60 mg tablet extended release 24 hr 60 mg PO BID Qty: 180 RF: 1 ezetimibe 10 mg tablet 10 mg PO DAILY Qty: 90 RF: 1 sitagliptin 100 mg tablet 100 mg PO DAILY Qty: 90 RF: 1 carvedilol 12.5 mg tablet 12.5 mg PO BID RF: 0 amlodipine 10 mg tablet 10 mg PO DAILY RF: 0 insulin glargine 100 unit/mL (3 mL) insulin pen 60 unit subcut BEDTIME RF: 0 tamsulosin 0.4 mg Capsule 0.8 mg PO BEDTIME Qty: 30 RF: 0 polyethylene glycol 3350 17 gram Powder In Packet 17 g PO DAILY Qty: 30 RF: 0 docusate sodium 100 mg Capsule 100 mg PO BID Qty: 60 RF: 0 atorvastatin 80 mg tablet 80 mg PO BEDTIME RF: 0 aspirin [Adult Low Dose Aspirin] 81 mg tablet,delayed release (DR/EC) 81 mg PO DAILY RF: 0 metformin 1,000 mg tablet 1,000 mg PO BID RF: 0
[2020-05-31 06:00] VITALS: BP 136/64; PULSE 68; RESP 15; O2SAT 99
[2020-05-31 06:00] LABS: Glucose, Whole Blood 59 mg/dL (60-115)
[2020-05-31 07:13] LABS: Glucose, Whole Blood 203 mg/dL (60-115)
[2020-05-31 07:35] LABS: Glucose, Whole Blood 190 mg/dL (60-115)
[2020-05-31 08:15] VITALS: BP 139/68; PULSE 71; RESP 15; TEMP 36.7; O2SAT 99
[2020-05-31 08:19] LABS: Glucose, Whole Blood 195 mg/dL (60-115)
--- NOTE | 2020-05-31 08:21 | PC.NURSE ---
pt is a/o x 3 no sob/jami noted skin pink warm dry speaks in full sentences. denies any hypoglycemia s/sx at this time.
--- NOTE | 2020-05-31 08:38 | PC.NURSE ---
pt d/c'd to waiting room to wait on his ride from his friend.
== END 2020-05-31 08:38 | disposition home or self-care (01) ==
PROVIDERS: Nurse Practitioner Family; Emergency Provider Emergency Medicine
DX: E11.649 Type 2 diabetes mellitus with hypoglycemia without coma (principal); I10 Essential (primary) hypertension; Z79.899 Other long term (current) drug therapy; Z79.82 Long term (current) use of aspirin; Z79.4 Long term (current) use of insulin
CPT/HCPCS: 36415; 71045; 80048; 81001; 82947; 84484; 85025; 85610; 85730; 93005; 96374; 99285

== ENCOUNTER → 2020-06-19 09:08 | Outpatient (BNVA) | payer MEDICARE, SELFPAY | PROVIDERS: PCP Internal Medicine; Visit Provider Urology | DX: R33.9 Retention of urine, unspecified (principal); E11.9 Type 2 diabetes mellitus without complications; E78.00 Pure hypercholesterolemia, unspecified; I10 Essential (primary) hypertension; Z46.6 Encounter for fitting and adjustment of urinary device; Z88.2 Allergy status to sulfonamides; Z79.4 Long term (current) use of insulin; Z79.899 Other long term (current) drug therapy | CPT/HCPCS: 99202 ==

== ENCOUNTER → 2020-07-22 08:38 | Outpatient (BNVA) | payer MEDICARE, SELFPAY | PROVIDERS: PCP Internal Medicine; Visit Provider Urology | DX: R33.9 Retention of urine, unspecified (principal); E11.8 Type 2 diabetes mellitus with unspecified complications | CPT/HCPCS: 51700; 51701; 99212 ==

== ENCOUNTER → 2020-08-21 10:53 | Outpatient (BNVA) | payer MEDICARE, SELFPAY | PROVIDERS: Visit Provider Urology | DX: R33.9 Retention of urine, unspecified (principal) | CPT/HCPCS: 52000; 99212 ==

== ENCOUNTER → 2020-11-03 09:48 | Day surgery (SDC) | payer MEDICARE, SELFPAY ==
--- NOTE | 2020-10-27 11:44 | P.CONAN_ITS ---
Documented by User: Silvana Lane NP 10/29/20 14:55 HPI - Anesthesia Eval Consult details Narrative: 70yo M for TUR Bladder Tumor Cardiac cleared (s/p stent 04/2020 - cleared to hold DAPT for surgery) Alanis catheter in situ PMFSH Active Problems Active Problems: All Active Problems (Updated 10/24/20 @ 09:56 by Za Ramey, RN) Urinary retention with incomplete bladder emptying (Acute) Type 2 diabetes mellitus with complications (Acute) Adult general medical exam (Acute) Left leg pain (Acute) Screening for colon cancer (Acute) High cholesterol (Acute) CHF (congestive heart failure) (Acute) Type 2 diabetes mellitus without complications (Acute) Generalized anxiety disorder (Acute) Past Medical History Medical History AAA (abdominal aortic aneurysm) Cardiac angina CHF (congestive heart failure) Coagulopathy COVID-19 vaccine series completed Alanis catheter in place Generalized anxiety disorder High cholesterol HTN (hypertension) Left leg pain Screening for colon cancer Type 2 diabetes mellitus without complications Family History Family History Mother High blood pressure High cholesterol Family history of problems with anesthesia: No (Mother PONV) Surgical History Surgical History History of cataract surgery History of heart artery stent History of open heart surgery Hx of cardiac catheterization History of Problems with Anesthesia: No Social History Social History Housing: House Are you a primary assistant child care teacher to a significant other at home: No Do you presently have visiting nurse or other home services: No Alcohol intake: current Alcohol intake frequency: does not drink Patient Tobacco Use Status: Never used Tobacco service: No Meds Allergies Allergy/AdvReac Type Severity Reaction Status Date / Time Sulfa (Sulfonamide Allergy Intermediate HIVES Verified 09/29/20 09:44 Antibiotics) [SULFA (SULFONAMIDE ANTIBIOTICS)] Home Medications Medication Instructions Recorded Confirmed Last Taken Type aspirin 81 mg tablet,delayed 81 mg PO DAILY 03/10/20 10/27/20 10/26/20 History release (Adult Low Dose Aspirin) glipizide 10 mg tablet 10 mg PO QAM 10/27/20 10/27/20 Unknown History isosorbide mononitrate 60 mg 120 mg PO BEDTIME 10/27/20 10/27/20 Unknown History tablet,extended release 24 hr omeprazole magnesium 20 mg 20 mg PO DAILY PRN 10/27/20 10/27/20 Unknown History tablet,delayed release Exam Exam Date and Time: October 27, 2020 1144 Height,Weight and Vital Signs: Height 5 ft 8 in Weight 74.2 kg Pulse Resp BP Pulse Ox 65 20 144/68 H 98 10/27/20 12:16 10/27/20 12:16 10/27/20 12:16 10/27/20 12:16 Pertinent Lab Results Pertinent Lab Results: Lab Results 10/27/20 10/27/20 Range/Units 13:17 13:17 WBC 7.3 (4.8-10.8) X10*3/uL RBC 3.92 L (4.60-5.80) X10*6/uL Hgb 11.2 L (14.0-18.0) g/dl Hct 34.7 L (42-52) % MCV 88.5 (80-98) fL MCH 28.6 (27.0-33.0) pg MCHC 32.3 (31.0-36.0) g/dl RDW 14.2 (11.0-16.0) % Plt Count 173 (160-400) X10*3/uL MPV 10.5 (9.4-12.4) fL Absolute Nucleated RBC 0.000 (0.0-0.012) X10*3/uL Nucleated RBC % (auto) 0.0 (0.0-0.2) /100WBC Sodium 139 (135-145) mmol/L Potassium 5.3 H D (3.3-5.1) mmol/L Chloride 103 (96-108) mmol/L Carbon Dioxide 28 (22-29) mmol/L Anion Gap 13 (12-20) BUN 20 H (9-16) mg/dL Creatinine 1.03 (0.5-1.4) mg/dL Estim Creat Clear Calc 66.4 Estimated GFR > 60 Random Glucose 145 H D (60-115) mg/dL Calcium 10.2 D (8.4-10.2) mg/dL Narrative Narrative: EKG 05/2020 Vent. Rate : 062 BPM ? ? Atrial Rate : 062 BPM ?? P-R Int : 168 ms? QRS Dur : 114 ms ? ? QT Int : 464 ms ? ? ? P-R-T Axes : 071 003 050 degrees ?? QTc Int : 470 ms ? Normal sinus rhythm Possible Left atrial enlargement Abnormal ECG When compared with ECG of 20-MAY-2020 14:37, No significant change was found Aortic US 05/2020 1. Arterial color duplex eval of R proximal common iliac artery reveals a moderate senosis, 20-49% Nml R common iliac artery, L common iliac artery, aorta diameter. No evidence of aneurysm. ECHO 06/2020 1. SR 2. LV size is normal 3. LV wall thickness is normal 4. Overall LV systolic function is nml and with an EF 60-65% 5. Grade 3, severe diastolic dysfunction with a restrictive LV filling and elevated LA pressure 6. Aortic valve is mildly calcified 7. Trace aortic regurg 8. Moderate Aortic stenosis 9. Mild to moderate mitral regurg 10. Mild pulm htn Airway Mallampati Class: II TM Dist: >3cm Neck ROM: Full Loose/Missing/Broken Teeth: Yes (Multiple missing and broken left) Heart: RRR +M Lungs: CTAB Assessment and Plan Assessment Anesthesia Assessment: Anesthesia Plan Discussed and PAT Visit Final Anesthetic Review Family History of Problems with Anesthesia: No (Mother PONV) History of Problems with Anesthesia: No Documented by User: Lilli Galdamez MD 11/03/20 12:16 [facility] Past Medical History Medical History AAA (abdominal aortic aneurysm) Cardiac angina CHF (congestive heart failure) Coagulopathy COVID-19 vaccine series completed Alanis catheter in place Generalized anxiety disorder High cholesterol HTN (hypertension) Left leg pain Screening for colon cancer Type 2 diabetes mellitus without complications Family History Family History Mother High blood pressure High cholesterol Surgical History Surgical History History of cataract surgery History of heart artery stent History of open heart surgery Hx of cardiac catheterization Social History Social History Housing: House Are you a primary assistant child care teacher to a significant other at home: No Do you presently have visiting nurse or other home services: No Alcohol intake: current Alcohol intake frequency: does not drink Patient Tobacco Use Status: Never used Tobacco service: No Narrative Narrative: Patient here for TURBT. On arrival at bedside to evaluate patient, patient found rubbing left chest. On further questioning, states he is having 'sciatica and angina'. VSS. No diaphoresis. 12 lead EKG done. ? STEMI. Transferred to ER Meds Allergies Allergy/AdvReac Type Severity Reaction Status Date / Time Sulfa (Sulfonamide Allergy Intermediate HIVES Verified 09/29/20 09:44 Antibiotics) [SULFA (SULFONAMIDE ANTIBIOTICS)] Home Medications Medication Instructions Recorded Confirmed Last Taken Type aspirin 81 mg tablet,delayed 81 mg PO DAILY 03/10/20 10/27/20 10/26/20 History release (Adult Low Dose Aspirin) glipizide 10 mg tablet 10 mg PO QAM 10/27/20 10/27/20 Unknown History isosorbide mononitrate 60 mg 120 mg PO BEDTIME 10/27/20 10/27/20 Unknown History tablet,extended release 24 hr omeprazole magnesium 20 mg 20 mg PO DAILY PRN 10/27/20 10/27/20 Unknown History tablet,delayed release
[2020-10-27 12:16] VITALS: BP 144/68; PULSE 65; RESP 20; O2SAT 98; BMI 24.8
[2020-10-27 14:11] LABS: Hematocrit 34.7 % (42-52); Hemoglobin 11.2 g/dl (14.0-18.0); Mean Corpuscular HGB Conc 32.3 g/dl (31.0-36.0); Mean Corpuscular Hemoglobin 28.6 pg (27.0-33.0); Mean Corpuscular Volume 88.5 fL (80-98); Mean Platelet Volume 10.5 fL (9.4-12.4); Platelet Count 173 X10*3/uL (160-400); Red Blood Count 3.92 X10*6/uL (4.60-5.80); Red Cell Distribution Width 14.2 % (11.0-16.0); White Blood Count 7.3 X10*3/uL (4.8-10.8)
[2020-10-27 14:22] LABS: Anion Gap 13 (12-20); Blood Urea Nitrogen 20 mg/dL (9-16); Calcium 10.2 mg/dL (8.4-10.2); Carbon Dioxide 28 mmol/L (22-29); Chloride 103 mmol/L (96-108); Creatinine Clr Calc Pharmacy 66.4; Estimated Glomerular Filt Rate > 60; Glucose Random 145 mg/dL (60-115); Potassium 5.3 mmol/L (3.3-5.1); Sodium 139 mmol/L (135-145)
--- NOTE | 2020-11-03 | ECG_ITS ---
Test Reason : chest pain Blood Pressure : / mmHG Vent. Rate : 097 BPM Atrial Rate : 097 BPM P-R Int : 158 ms QRS Dur : 086 ms QT Int : 338 ms P-R-T Axes : 064 007 148 degrees QTc Int : 429 ms Normal sinus rhythm Possible Left atrial enlargement Anterior infarct (cited on or before 03-NOV-2020) T wave abnormality, consider lateral ischemia Abnormal ECG When compared with ECG of 31-MAY-2020 03:43, Vent. rate has increased BY 35 BPM QRS duration has decreased ST now depressed in Lateral leads T wave inversion now evident in Lateral leads Referred By: Lilli Galdamez Electronically Signed By:ALISIA KENNY
[2020-11-03 10:25] LABS: Glucose, Whole Blood 151 mg/dL (60-115)
[2020-11-03 10:33] VITALS: BMI 23.8
[2020-11-03] MEDS: Lactated Ringers 500 ML 20 ML IVCONT (10:35)
[2020-11-03] MEDS: levoFLOXacin 500 MG TABLET PO (11:39)
--- NOTE | 2020-11-03 12:02 | PC.NURSE ---
dr saeed at bedside ekg shows depression call to ed pt c/o 04/[address] dr bran clear denies dizziness
[2020-11-03 12:09] VITALS: BP 135/82; PULSE 100; RESP 18; TEMP 36.1; O2SAT 98
--- NOTE | 2020-11-03 12:18 | PC.NURSE ---
pt to ed at 1215 chest pressure 2-04/23 report given to bobby whittington from the ed pt a/ox3 aware of plan of care ed md and rn at bedside. call to brother afua felix called and notified
== END ==
PROVIDERS: Nurse Practitioner; PCP Internal Medicine; Visit Provider Urology
DX: C67.9 Malignant neoplasm of bladder, unspecified (principal); Z53.8 Procedure and treatment not carried out for other reasons; I11.0 Hypertensive heart disease with heart failure; I50.9 Heart failure, unspecified; E11.9 Type 2 diabetes mellitus without complications; I25.2 Old myocardial infarction; Z20.822 Contact with and (suspected) exposure to COVID-19
CPT/HCPCS: 36415; 71045; 80048; 82947; 85027; 87635; 93005; J1100; J2250; J2405; J3010

== ENCOUNTER 2020-11-03 12:13 | Emergency (ER) | payer MEDICARE, SELFPAY ==
--- NOTE | 2020-11-03 | ECG_ITS ---
Test Reason : TX Blood Pressure : / mmHG Vent. Rate : 104 BPM Atrial Rate : 104 BPM P-R Int : 162 ms QRS Dur : 084 ms QT Int : 336 ms P-R-T Axes : 065 005 151 degrees QTc Int : 441 ms Sinus tachycardia Possible Left atrial enlargement Cannot rule out Anterior infarct (cited on or before 03-NOV-2020) Marked ST abnormality, possible lateral subendocardial injury Abnormal ECG When compared with ECG of 03-NOV-2020 11:58, No significant change was found Referred By: Christopher Pate Electronically Signed By:ALISIA KENNY
--- NOTE | ~2020-11-03 | XR_ITS ---
EXAMINATION: XR CHEST CLINICAL INFORMATION: SOB. Rule out CHF. COMPARISON: None TECHNIQUE: Frontal view of the chest was obtained. FINDINGS: The lungs are hypoexpanded with increased bilateral vascular markings with borderline size heart consistent CHF. No consolidation or effusion seen. There are median sternotomy sutures and mediastinal joe from previous intervention. No soft tissue abnormality seen. XR/XR chest 1V IMPRESSION: Borderline size heart with mild CHF.
--- NOTE | 2020-11-03 12:22 | PC.NURSE ---
@1220PM DR BARRERA REQUEST PAGE OUT TO INTERVENTIONAL CARDIOLOGY @ [phone] RETURN CALL FROM [facility], DR BARRERA TAKES OVER CALL RIGHT AWAY [facility] TEXTED FOR STEMI STANDBY
[2020-11-03] MEDS: Heparin Sodium,Porcine 5,000 UNIT/ML VIAL 4200 UNIT IVPUSH (12:38)
[2020-11-03] MEDS: fentaNYL citrate/PF 100 MCG/2 ML VIAL 50 MCG IVPUSH ×2 (12:39→13:21)
[2020-11-03] MEDS: Ticagrelor 90 MG TABLET 180 MG PO (12:40)
[2020-11-03] MEDS: Atorvastatin Calcium 80 MG TABLET PO (12:42)
[2020-11-03] MEDS: Aspirin 81 MG TAB.CHEW 324 MG PO (12:42)
--- NOTE | 2020-11-03 12:45 | PC.NURSE ---
@ 247[facility] PT TX LINE CALLS WITH RN TO RN NUMBER OF [phone] AND A FAX NUMBER TO FAX FACE SHEET [phone]
--- NOTE | 2020-11-03 12:49 | ED_ITS ---
HPI - General Adult General Chief complaint: Chest Pain Stated complaint: chest pain Time Seen by Provider: 11/03/20 12:18 Source: patient Mode of arrival: other (Structure from OR) Limitations: no limitations History of Present Illness HPI narrative: 70-year-old male who in the operating room being evaluated by Anesthesia for TURP. The anesthesiologist states that when he got in to the room the patient was found rubbing his left chest, he was complaining an ?angina and ?. He was also complaining of left-sided sciatic pain. The anesthesiologist did an EKG on the patient and the patient had ST segment elevat ion in the anterior leads with inverted T-waves V1 aVL and V5 V6 therefore he was brought to the emergency department. The patient was evaluated immediately on presentation and was complaining left-sided chest pressure which was 5/10, the pain did radiate down his left arm. He states that the pain was similar to anginal pain that he gets 2 to 3 times a week. He stated it was at home he would take a nitroglycerin. 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 The patient's Plavix was stopped for the surgical procedure. He also complained of feeling lightheaded and dizzy, the patient was diaphoretic. Repeat EKG was consistent with anterior wall PA and this was changed compared to EKG dated May 2020. STEMI protocol was activated the patient was given 60 milligrams/kilogram IV bolus of heparin (4200 mg, 71 kg male), atorvastatin 80 mg orally, aspirin 324 mg to chew and Brilinta 180 mg orally. The patient was found to be hypoxic with O2 saturations 80-90% on room air, was placed on 100% non-rebreather his O2 saturation came up to 92%. Stat portable chest x-ray revealed pulmonary edema. The patient was given Lasix 40 mg IV. I did discuss the patient's presentation with the covering packaging associate at [facility], Dr. Stephens and he accepted the patient as an ED to research laboratory technician transfer. Related Data Home Medications Medication Instructions Recorded Confirmed aspirin 81 mg tablet,delayed 81 mg PO DAILY 03/10/20 10/27/20 release (Adult Low Dose Aspirin) glipizide 10 mg tablet 10 mg PO QAM 10/27/20 10/27/20 isosorbide mononitrate 60 mg 120 mg PO BEDTIME 10/27/20 10/27/20 tablet,extended release 24 hr omeprazole magnesium 20 mg 20 mg PO DAILY PRN 10/27/20 10/27/20 tablet,delayed release Previous Rx's Medication Instructions Recorded furosemide 40 mg tablet 40 mg PO DAILY #90 tab 05/08/20 clopidogrel 75 mg tablet 75 mg PO DAILY #90 tab 05/14/20 polyethylene glycol 3350 17 gram 17 g PO DAILY #30 ea 05/24/20 oral powder packet blood sugar diagnostic (FreeStyle #100 ea 05/29/20 Lite Strips) ezetimibe 10 mg tablet 10 mg PO DAILY #90 tab 05/29/20 sitagliptin 100 mg tablet 100 mg PO DAILY #90 tab 05/29/20 glucagon HCl 1 mg solution for 1 mg SUBCUT Q20M PRN #1 ea 05/31/20 injection (Glucagon (HCl) Emergency Kit) finasteride 5 mg tablet 5 mg PO DAILY 90 Days #90 tab 06/19/20 tamsulosin 0.4 mg capsule (Flomax) 0.4 mg PO BEDTIME 90 Days #90 cap 06/19/20 escitalopram oxalate 10 mg tablet 10 mg PO DAILY 90 Days #90 tab 07/17/20 flash glucose scanning reader #1 ea 07/18/20 (FreeStyle Ellen 14 Day [place]) flash glucose sensor (FreeStyle #1 ea 07/18/20 Ellen 14 Day Sensor) amlodipine 10 mg tablet 10 mg PO DAILY #90 tab 09/04/20 atorvastatin 80 mg tablet 80 mg PO BEDTIME #90 tab 09/04/20 carvedilol 12.5 mg tablet 12.5 mg PO BID 90 Days #180 tab 09/09/20 lisinopril 20 mg tablet 20 mg PO DAILY #90 tab 09/19/20 nitroglycerin 0.4 mg sublingual 0.4 mg SUBLINGUAL DAILY PRN #25 tab 09/19/20 tablet metformin 1,000 mg tablet 1,000 mg PO BID #180 tab 10/02/20 pen needle, diabetic 31 gauge x 1 ea SUBCUT DAILY #100 ea 10/03/2006/29 (BD Ultra-Fine Short Pen Needle) pregabalin 75 mg capsule 75 mg PO BID 30 Days #60 cap 10/07/20 alprazolam 1 mg tablet 1 mg PO BID #60 tab 10/09/20 insulin glargine 100 unit/mL (3 40 unit SUBCUT BEDTIME #15 cap 10/23/20 mL) subcutaneous pen (Basaglar KwikPen U-100 Insulin) ranolazine 500 mg tablet,extended 500 mg PO BID #180 tab 10/31/20 release,12 hr Allergies Allergy/AdvReac Type Severity Reaction Status Date / Time Sulfa (Sulfonamide Allergy Intermediate HIVES Verified 09/29/20 09:44 Antibiotics) [SULFA (SULFONAMIDE ANTIBIOTICS)] Review of Systems Review of Systems: Yes all other systems are reviewed and are negative [facility] Past Medical History Medical History AAA (abdominal aortic aneurysm) Cardiac angina CHF (congestive heart failure) Coagulopathy COVID-19 vaccine series completed Alanis catheter in place Generalized anxiety disorder High cholesterol HTN (hypertension) Left leg pain Screening for colon cancer Type 2 diabetes mellitus without complications Surgical History History of cataract surgery History of heart artery stent History of open heart surgery Hx of cardiac catheterization Family History Family History Mother High blood pressure High cholesterol Social History Social History Housing: House Are you a primary nonfarm animal caretaker to a significant other at home: No Do you presently have visiting nurse or other home services: No Alcohol intake: current Alcohol intake frequency: does not drink Patient Tobacco Use Status: Never used Tobacco Advance Directives: No Advance Directives Information Provided: No service: No Physical Exam Vital Signs: Vital Signs: Last Vital Signs Pulse 96 11/03/20 12:56 Resp 21 H 11/03/20 12:56 BP 117/74 11/03/20 12:56 Pulse Ox 94 11/03/20 12:56 Body Mass Index 23.8 Const: Other: Cooperative male, holding his left chest, slightly diaphoretic appears be in distress secondary to his pain, answers all questions appropriately. Limitations: no limitations HENMT: Head: Yes normal to inspection, Yes normocephalic and Yes atraumatic Ears: external ears normal General nose exam: Normal external nose present Face and sinus: Yes normal facial exam Mouth: Normal oral and palatal mucosa present Throat: Yes posterior oropharynx normal Eyes: General: appearance normal, both eyes and all related structures Pupils: Equal, round and reactive pupils present Neck: Neck: Yes normal visual inspection, Yes no lymphadenopathy, Yes trachea midline and Yes supple Chest: Chest palpation & inspection: normal inspection of the chest and normal palpation of entire chest wall Resp: Effort & Inspection: normal respiratory effort and able to speak in complete sentences Auscultation: clear to auscultation bilaterally Cardio: Rate: regular rate Rhythm: regular rhythm Heart sounds: S1 normal heart sound present, S2 normal heart sound present and no murmurs GI: Inspection: Yes normal to inspection Palpation (GI): Soft to palpation, nontender and no guarding Auscultation: normal bowel sounds : General: Yes no CVA tenderness Back/Spine/Pelvis: Back: no CVA tenderness Skin: General skin exam: no rashes or lesions noted Neuro: Cranial nerves: Yes CN's II-XII intact bilaterally and Yes Equal, round and reactive pupils present Cognition (Neuro): normal cognition Motor exam (neuro): 5/5 motor strength present throughout Extrem: General: Yes normal to inspection Psych: Appearance: grossly normal Speech and movement: Normal speech and movement present Affect: normal affect Attitude: cooperative Thought process: Normal thought process present Thought content: Normal thought content present Course Course Course Narrative: 70-year-old male with history PA 4 months prior, 4 vessel CABG 16 years prior who was here today for a elective TURP, the patient stopped his Plavix, patient developed chest pain while being evaluated by the anesthesiologist, the pain is present for approximately 1 hour prior to coming to the emergency department. EKG obtained by the anesthesiologist was co nsistent with an anterior wall myocardial infarction. Patient was seen immediately on presentation and given aspirin 324 mg orally, atorvastatin 80 mg orally, Brilinta 180 mg orally and heparin 4200 mg bolus IV. Patient was initially given 1 nitroglycerin 0.4 mg sublingually but this causes blood pressure to drop, therefore he was given fentanyl 50 mcg IV x2 with improvement his pain. The patient was hypoxic and chest x-ray is consistent with congestive heart failure. He was given Lasix 40 mg IV and placed on 100% non-rebreather. The patient is accepted as an ED to research laboratory technician transfer at [facility] the patient was transferred by ALS ambulance. At the time of discharge the patient appeared improved, he was not completely pain-free but his diaphoresis improved any appeared to be more comfortable. 1335: CBC revealed mild anemia with an H&H of 11.2 and 34.2 which is chronic. White blood cell count was normal 7300. COVID 19 test was negative. Patient's CMP and troponin are pending.Chest x-ray was interpreted as borderline size heart with mild CHF by the radiologist. NB: There was a delay in transporting this patient with a STEMI secondary to lack of available of ALS ambulance availability. Medical Decision Making Lab Data Labs: Lab Results 11/03/20 Range/Units 13:00 COVID-19 (YOLANDA) Negative (Negative) COVID-19 Clin Com See Note ECG Data Attestation: I personally reviewed and interpreted this ECG as follows: Interpretation: 1214: Sinus tachycardia with a rate of 104, normal OH interval, QRS duration and QTC interval, inverted T-waves in lead [address] segment elevation V1 through V4 with ST segment depression V5 and V6 changes are new compared to EKG dated May 31, 2020. Critical Care Time Critical Care Time Critical Care Time: Yes Total Critical Care Time: 40 Attestation: Critical Care: The patient was critically ill with a high probability of imminent or life threatening deterioration. I spent greater than 30 minutes of discontinuous time evaluating the patient,delivering critical care at the bedside, discussing and evaluating pertinent data with consultants. Critical care time does not include time spent performing separately billable procedures or teaching. Total time spent performing critical care was 40 minutes. Discharge Plan Discharge Clinical Impression: ST elevation (STEMI) myocardial infarction, CHF (congestive heart failure), Hypoxia Patient Disposition: Xfer Acute Care Hospital Transfer Details: [facility] research laboratory technician Prescriptions: No Action furosemide 40 mg tablet 40 mg PO DAILY Qty: 90 RF: 1 clopidogrel 75 mg tablet 75 mg PO DAILY Qty: 90 RF: 1 (DME) FreeStyle Lite Strips Strip See Rx Instructions .ROUTE .MEDSUPPLY Qty: 100 RF: 11 ezetimibe 10 mg tablet 10 mg PO DAILY Qty: 90 RF: 1 sitagliptin 100 mg tablet 100 mg PO DAILY Qty: 90 RF: 1 escitalopram oxalate 10 mg tablet 10 mg PO DAILY 90 Days Qty: 90 RF: 1 (DME) FreeStyle Ellen 14 Day Sensor Kit See Rx Instructions .ROUTE .MEDSUPPLY Qty: 1 RF: 0 (DME) FreeStyle Ellen 14 Day [place] Misc See Rx Instructions .ROUTE .MEDSUPPLY Qty: 1 RF: 0 amlodipine 10 mg tablet 10 mg PO DAILY Qty: 90 RF: 0 atorvastatin 80 mg tablet 80 mg PO BEDTIME Qty: 90 RF: 1 carvedilol 12.5 mg tablet 12.5 mg PO BID 90 Days Qty: 180 RF: 0 lisinopril 20 mg tablet 20 mg PO DAILY Qty: 90 RF: 1 nitroglycerin 0.4 mg tablet, sublingual 0.4 mg sublingual DAILY PRN (Reason: for angina) Qty: 25 RF: 1 metformin 1,000 mg tablet 1,000 mg PO BID Qty: 180 RF: 1 pen needle, diabetic [BD Ultra-Fine Short Pen Needle] 31 gauge x 5/16 needle 1 ea subcut DAILY Qty: 100 RF: 5 pregabalin 75 mg capsule 75 mg PO BID 30 Days Qty: 60 RF: 1 alprazolam 1 mg tablet 1 mg PO BID Qty: 60 RF: 0 Basaglar KwikPen U-100 Insulin 100 unit/mL (3 mL) insulin pen 40 unit subcut BEDTIME Qty: 15 RF: 1 ranolazine 500 mg tablet extended release 12 hr 500 mg PO BID Qty: 180 RF: 1 polyethylene glycol 3350 17 gram Powder In Packet 17 g PO DAILY Qty: 30 RF: 0 Glucagon (HCl) Emergency Kit 1 mg recon soln 1 mg subcut Q20M PRN (Reason: hypoglycemia) Qty: 1 RF: 0 glipizide 10 mg tablet 10 mg PO QAM RF: 0 isosorbide mononitrate 60 mg tablet extended release 24 hr 120 mg PO BEDTIME RF: 0 omeprazole magnesium 20 mg tablet,delayed release (DR/EC) 20 mg PO DAILY PRN (Reason: Acid Reflux) RF: 0 aspirin [Adult Low Dose Aspirin] 81 mg tablet,delayed release (DR/EC) 81 mg PO DAILY RF: 0 tamsulosin [Flomax] 0.4 mg capsule 0.4 mg PO BEDTIME 90 Days Qty: 90 RF: 1 finasteride 5 mg tablet 5 mg PO DAILY 90 Days Qty: 90 RF: 1 Discharge Date/Time: 11/03/20 13:12
[2020-11-03 12:56] VITALS: BP 117/74; PULSE 96; RESP 21; O2SAT 94; BMI 23.8
--- NOTE | 2020-11-03 13:02 | PC.NURSE ---
@ 1253 PM [facility] CALLED TO HAVE AMBULANCE COME BACK FOR THIS TRANSFER @1201 @ DR BARRERA REQUEST [facility] CALLED AGAIN FOR ETA OR DIFFERENT AMBUANCE FOR THIS TRANSFER. PER [facility] STATES THEY ARE HERE @ 1304 [facility] HERE TO TAKE [place] PAPERWORK
--- NOTE | 2020-11-03 13:12 | PC.NURSE ---
[facility] @ THIS TIME
[2020-11-03 13:29] LABS: COVID-19 Test Negative (Negative); IDNOW Serial# 08D9AD1C
== END 2020-11-03 13:12 | disposition short-term general hospital (02) ==
PROVIDERS: Emergency Provider Emergency Medicine Emergency Medical Services; PCP Internal Medicine
DX: I21.3 ST elevation (STEMI) myocardial infarction of unspecified site (principal); I50.9 Heart failure, unspecified; R09.02 Hypoxemia; I25.10 Atherosclerotic heart disease of native coronary artery without angina pectoris; Z20.822 Contact with and (suspected) exposure to COVID-19; Z79.899 Other long term (current) drug therapy
CPT/HCPCS: 36415; 71045; 87635; 93005; 96374; 96375; 99282; 99291; J3010

== ENCOUNTER → 2021-01-06 08:50 | Outpatient (BNVA) | payer MEDICARE, SELFPAY | PROVIDERS: PCP Internal Medicine; Visit Provider Urology | DX: C67.9 Malignant neoplasm of bladder, unspecified (principal) | CPT/HCPCS: Q3014 ==

== ENCOUNTER 2021-02-16 09:40 | Day surgery (SDC) | payer MEDICARE, SELFPAY ==
[2021-02-09 13:50] VITALS: BMI 23.2
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
[2021-02-16] VITALS (12 sets, daily range): BP systolic 115–148; BP diastolic 60–81; PULSE 63–77; RESP 16–20; TEMP 36.7–36.8; O2SAT 92–100
--- NOTE | 2021-02-16 09:58 | ECG_ITS ---
Test Reason : CHEST PAIN Blood Pressure : / mmHG Vent. Rate : 069 BPM Atrial Rate : 069 BPM P-R Int : 158 ms QRS Dur : 090 ms QT Int : 402 ms P-R-T Axes : 074 006 056 degrees QTc Int : 430 ms Normal sinus rhythm Possible Left atrial enlargement Cannot rule out Anterior infarct (cited on or before 03-NOV-2020) Abnormal ECG When compared with ECG of 03-NOV-2020 12:14, Vent. rate has decreased BY [address] no longer depressed in Inferior leads ST no longer depressed in Lateral leads T wave inversion no longer evident in Lateral leads Referred By: Khanh Contreras Electronically Signed By:HANK ESPINOZA MD
[2021-02-16 10:08] LABS: Hematocrit 35.3 % (42.0-52.0); Hemoglobin 11.5 g/dl (14.0-18.0); Mean Corpuscular HGB Conc 32.6 g/dl (31.0-36.0); Mean Corpuscular Hemoglobin 29.6 pg (27.0-33.0); Mean Corpuscular Volume 90.7 fL (80.0-98.0); Mean Platelet Volume 10.4 fL (9.4-12.4); Platelet Count 172 X10*3/uL (160-400); Red Blood Count 3.89 X10*6/uL (4.60-5.80); Red Cell Distribution Width 13.7 % (11.0-16.0); White Blood Count 8.8 X10*3/uL (4.8-10.8)
[2021-02-16] MEDS: Lactated Ringers 1,000 ML 50 ML IVCONT (10:18)
[2021-02-16 10:24] LABS: Glucose, Whole Blood 276 mg/dL (60-115)
[2021-02-16 10:31] LABS: Anion Gap 13 (12-20); Blood Urea Nitrogen 27 mg/dL (9-16); Calcium 9.4 mg/dL (8.4-10.2); Carbon Dioxide 28 mmol/L (22-29); Chloride 101 mmol/L (96-108); Creatinine Clr Calc Pharmacy 44.3; Estimated Glomerular Filt Rate 46; Glucose Fasting 311 mg/dL (60-99); Potassium 4.6 mmol/L (3.3-5.1); Sodium 137 mmol/L (135-145)
--- NOTE | 2021-02-16 11:34 | P.HPSUR_ITS ---
Pre-Procedural Eval Section A Date of Service: 02/16/21 Section B Chief Complaint: neoplasm of bladder Details of Present Illness: here for transurethral section of bladder tumor with gemcitabine installation Relevant Family History (Specify if Yes): No Relevant Social History: Tobacco Use Present Medications: see Short Stay Collaborative assessment Medical History: No relevant PMH History of Previous Operations: No relevant previous surgery Allergies: Allergies Allergy/AdvReac Type Severity Reaction Status Date / Time Sulfa (Sulfonamide Allergy Intermediate HIVES Verified 02/09/21 13:20 Antibiotics) [SULFA (SULFONAMIDE ANTIBIOTICS)] Review of Systems Sugical H&P ROS: Negative: Constitution, Cardiovascular, Respiratory, Neurological, Psychiatric, Hem-Onc, Allergic/Immunologic, Gastrointestinal, Genitourinary, Musculoskeletal, Integumentary, Endocrine and Eyes/Ears/Nose/Throat Exam Surgical H&P Exam: Normal: HEENT, Normal: Heart, Normal: Lungs, Normal: Extr emities, Normal: Abdomen, Normal: Skin and Normal: Neurological Plan Diagnosis/Plan: Unchanged ( transurethral resection of bladder tumor with gemcitabine installation) I have reviewed the history and physical and performed a pertinent physical examination on my patient. No changes have occurred unless specified.
--- NOTE | 2021-02-16 12:52 | P.OP_ITS ---
Operative Note Operative Note Date of Service: 02/16/21 Narrative: PreOperative Diagnosis: bladder cancer Post Operative Diagnosis: bladder cancer - large TURBT Procedure: TURBT and Gemcitabine installation Surgeon: Dr Asif Pennington Anesthesia: general Indications for procedure: had initially been seen for urinary retention and at time of cystoscopy found to have back wall low-grade bladder cancer. Was unable to get procedure previously after having heart attack and cardiac stabilization. Is here for TURBT with gemcitabine. based on findings at time of surgery will require 6 week induction gemcitabine course. Procedure: After informed consent was verified the patient was brought to the operating room and placed in a supine position. anesthesia was administered per protocol. the patient was placed in a modified dorsal lithotomy position and prepped and draped in a sterile fashion. Safety pause time-out was performed. Antibiotics were confirmed. A 26 [place] continuous flow resectoscope was inserted per urethra. The visual obturator was used in order to minimize potential for urethral damage. Back wall was covered with low-grade superficial bladder cancer. A large area (> 5 cm) from the back wall was resected with superficial resection followed by cautery around the resection edge. The bladder was examined in its entirety using narrow band imaging and there were characteristic mucosal changes suggestive of micro deposition throughout the bladder. Because of this he will require induction course of gemcitabine following 2-3 weeks of healing. At the completion of the procedure the bladder was irrigated. The cystoscope was removed. A [address] Alanis catheter was inserted into the bladder. 1 0 cc was placed in the balloon. 2 g of gemcitabine in 100 cc of normal saline was instilled into the bladder. the flow from the catheter was left clamped. The inflow to the catheter was attached to a 3 L normal saline bag. The patient tolerated the procedure well. They were extubated in the operating room and transferred in stable condition to the recovery area. Gemcitabine will remain in the bladder for 1 hour. At the completion of 1 hour the clamp will be removed. The gemcitabine will be allowed to egress to the urine collection bag. The 3 L bag of normal saline will be run at maximum rate through the bladder in order to dilute any residual gemcitabine. The Alanis catheter will then be removed. Pathology: Bladder tumor Drains: 3 way Alanis catheter
[2021-02-16] MEDS: Acetaminophen 325 MG TABLET 650 MG PO (14:50)
== END 2021-02-16 15:59 | disposition home or self-care (01) ==
PROVIDERS: Nurse Practitioner; PCP Internal Medicine; Visit Provider Urology
PROC: 0TBB8ZZ Excision of Bladder, Via Natural or Artificial Opening Endoscopic (ICD-10-PCS; CPT 52240; principal; 2021-02-16 12:00)
DX: C67.4 Malignant neoplasm of posterior wall of bladder (principal); I71.4 Abdominal aortic aneurysm, without rupture; I42.9 Cardiomyopathy, unspecified; I20.9 Angina pectoris, unspecified; I11.0 Hypertensive heart disease with heart failure; I50.9 Heart failure, unspecified; I25.10 Atherosclerotic heart disease of native coronary artery without angina pectoris; Z95.1 Presence of aortocoronary bypass graft; E78.00 Pure hypercholesterolemia, unspecified; E11.65 Type 2 diabetes mellitus with hyperglycemia; Z79.4 Long term (current) use of insulin; Z79.82 Long term (current) use of aspirin; Z79.899 Other long term (current) drug therapy; Z88.2 Allergy status to sulfonamides; Z86.16 Personal history of COVID-19
CPT/HCPCS: 52240; 51720; 36415; 80048; 82947; 85027; 88307; 88341; 88342; 88360; 93005; J1100; J1956; J2250; J2370; J2405; J3010; J9201

== ENCOUNTER → 2021-02-27 12:51 | Outpatient (BNVA) | payer MEDICARE, SELFPAY | PROVIDERS: PCP Internal Medicine; Visit Provider Urology | DX: N30.20 Other chronic cystitis without hematuria (principal) | CPT/HCPCS: Q3014 ==

== ENCOUNTER 2021-05-20 01:22 | Inpatient (IN) | payer MEDICARE, SELFPAY ==
[2021-05-20] VITALS (16 sets, daily range): BP systolic 117–153; BP diastolic 64–83; PULSE 80–103; RESP 18–33; TEMP 36.7–38.1; O2SAT 90–97; BMI 26.6; BMI 26.1
--- NOTE | 2021-05-20 | ECG_ITS ---
Test Reason : WEAKNESS Blood Pressure : / mmHG Vent. Rate : 082 BPM Atrial Rate : 082 BPM P-R Int : 166 ms QRS Dur : 090 ms QT Int : 370 ms P-R-T Axes : 061 -15 121 degrees QTc Int : 432 ms Normal sinus rhythm Possible Left atrial enlargement Cannot rule out Anterior infarct (cited on or before 03-NOV-2020) ST & T wave abnormality, consider lateral ischemia Abnormal ECG When compared with ECG of 16-FEB-2021 10:04, ST now depressed in Lateral leads Referred By: Generic ED Physician Electronically Signed By:HANK ESPINOZA MD
--- NOTE | 2021-05-20 | ECG_ITS ---
Test Reason : ? pause Blood Pressure : / mmHG Vent. Rate : 087 BPM Atrial Rate : 087 BPM P-R Int : 156 ms QRS Dur : 080 ms QT Int : 356 ms P-R-T Axes : 070 006 096 degrees QTc Int : 428 ms Normal sinus rhythm Possible Left atrial enlargement Nonspecific ST abnormality Abnormal QRS-T angle, consider primary T wave abnormality Abnormal ECG When compared with ECG of 20-MAY-2021 18:08, T wave inversion less evident in Lateral leads Referred By: Kelby Riley Electronically Signed By:HANK ESPINOZA MD
--- NOTE | ~2021-05-20 | XR_ITS ---
EXAMINATION: XR CHEST CLINICAL INFORMATION: Shortness of breath COMPARISON: Chest radiograph 11/03/[address] chest 05/20/2021 as well as a chest radiograph dating back to 06/15/2016 the radiograph from 2017 showed none of these findings. TECHNIQUE: Frontal view of the chest was obtained. FINDINGS: Patient status post median sternotomy. Heart size within normal limits. Increased interstitial markings are seen with septal thickening and some Milagros B lines. Findings are suggestive of interstitial edema as well as noted on the prior CT. No pleural effusions are seen. Previous chest radiograph from 11/03/2020 showed similar findings. XR/XR chest 1V IMPRESSION: CHF with interstitial edema similar to that noted on the CT chest earlier today
--- NOTE | ~2021-05-20 | MR_ITS ---
MRI OF THE BRAIN WITHOUT IV CONTRAST INDICATION: TIA versus stroke. Previous CTA describes left-sided weakness. COMPARISON: CT head and CTA head and neck 05/20/2021. TECHNIQUE: Multiplanar multisequence MR imaging of the brain was obtained without IV contrast. FINDINGS: There is global cerebral volume loss and there is mild chronic microangiopathy. There is no hydrocephalus, extra-axial surface collection, or herniation. The major flow voids at the skull base are preserved. There is no acute infarct on diffusion-weighted imaging. There is no intracranial hemorrhage on the gradient recalled echo acquisition. The midline structures are normal. The cerebellar tonsils are normally positioned. The cerebellum and brainstem are normal. The craniocervical junction is normal. Osseous marrow signal intensity is homogenous. The visualized soft tissues are unremarkable. Pansinus disease with maxillary sinus fluid levels, significant mucosal opacification of the ethmoid air cells bilaterally, and mild mucosal thickening within the frontal and sphenoid sinuses MR/MR head/brain wo con IMPRESSION: - There are no acute intracranial findings. No acute infarcts. - There is global cerebral volume loss and there is mild chronic microangiopathy. - Pansinus disease with fluid levels that can be correlated for clinical signs of acute sinusitis.
--- NOTE | ~2021-05-20 | CT_ITS ---
EXAMINATION: CTA NECK WITH CONTRAST (STROKE) CTA BRAIN WITH CONTRAST (STROKE) CLINICAL INFORMATION: Left-sided weakness COMPARISON: Noncontrast head CT from earlier today TECHNIQUE: Test bolus sequences followed by intravenous administration 85 mL of Omnipaque 350. Helical imaging was performed in the axial plane from the thoracic inlet to the skull vertex. Delayed postcontrast imaging of the head was also performed. The data was processed at the radiologic technologist's workstation for generation of MIP sequences. Angled MIPs and volume rendered reformatted images were also generated at an offline 3D workstation. Stenoses are assessed in accordance with NASCET criteria unless otherwise indicated. DOSE LOWERING TECHNIQUES: This CT examination was performed using dose optimization techniques as appropriate, variously including the following: - Automated exposure control - Adjustment of mA and/or kV according to patient size (this includes techniques or standardized protocols for targeted exams were dose is matched to indication/reason for exam; i.e. extremities or head) - Use of iterative reconstruction technique DLP: 2577 mGy-cm FINDINGS: Neck CTA: Scattered calcifications of the visualized thoracic aorta. The left vertebral artery arises directly off the aortic arch, an anatomic variant. Both vertebral arteries are widely patent throughout their extracranial cervical course. There is calcification at the bilateral common carotid artery bifurcations, right greater than left, which appears to result in less than 50% luminal narrowing. Mild calcifications extend along the proximal internal carotid arteries. Remainder of the bilateral internal carotid arteries are widely patent. Brain CTA: Mild calcifications along the bilateral intradural vertebral arteries. Normal appearance of the basilar and superior cerebellar arteries. There are origins of the bilateral posterior cerebral arteries which appear well-opacified. Normal appearance of the intradural internal carotid arteries without focal stenosis. Normal appearance of the anterior cerebral and middle cerebral arteries without focal occlusion or stenosis. Normal anterior communicating artery. Normal arborization of the middle cerebral arteries. CT Head: No intracranial mass, hemorrhage, extra-axial collection, or midline shift. The mcwilliams-white matter differentiation is preserved. Mild volume loss is noted. No pathologic intra-axial enhancement or regional oligemia. No hydrocephalus. There is mucosal thickening throughout the paranasal sinuses. Bilateral mastoid air cells remain well aerated. CT Neck: Left thyroid gland nodule is noted, not well assessed due to artifact from adjacent dense venous contrast. There is disc space narrowing and endplate osteophyte formation of the lower cervical spine. Multilevel facet arthropathy is also noted. Upper Chest: Suboptimal assessment of the lung apices due to respiratory motion artifact. CT/CT angio head neck stroke IMPRESSION: 1. Calcifications at the bilateral common carotid artery bifurcations, right greater than left, with less than 50% luminal narrowing. 2. No large vessel occlusion or significant stenosis in the intracranial circulation. 3. Left thyroid lobe nodule, for which further assessment with nonemergent ultrasound is recommended. This stroke protocol result was discussed with Dr. Barfield on 05/20/2021 4:07 AM.
--- NOTE | ~2021-05-20 | CT_ITS ---
EXAMINATION: CONTRAST-ENHANCED CT OF THE CHEST; CONTRAST-ENHANCED CT OF THE ABDOMEN AND PELVIS INDICATION: Weakness on left, history of aortic aneurysm, chest pain, stroke symptoms COMPARISON: 05/20/2020 TECHNIQUE: 85 mL Omnipaque 350 IV contrast was utilized. Multidetector helical imaging was performed through the chest, abdomen, and pelvis. Coronal and sagittal reformatted images were created at the technologist workstation. DLP: 2577 mGy-cm DOSE LOWERING TECHNIQUES: This CT examination was performed using dose optimization techniques as appropriate, variously including the following: - Automated exposure control - Adjustment of mA and/or kV according to patient size (this includes techniques or standardized protocols for targeted exams were dose is matched to indication/reason for exam; i.e. extremities or head) - Use of iterative reconstruction technique FINDINGS: Chest: Limited parenchymal evaluation due to respiratory motion artifact. There is some interlobular septal thickening bilaterally favoring interstitial edema. Mild dependent atelectasis bilaterally without additional focal consolidation. Trace pleural effusions. Left thyroid nodule noted. There are subcentimeter mediastinal lymph nodes within the range of normal variation. Borderline cardiomegaly; no pericardial effusion. 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 There is atherosclerotic calcification along the aorta. No axillary lymphadenopathy is present. Status post sternotomy. Abdomen/Pelvis: The liver is homogeneous in attenuation without intrahepatic biliary ductal dilatation. Proximal cholelithiasis noted. The spleen, pancreas, and adrenal glands are within normal limits. Bilateral nephrograms are symmetric. No hydronephrosis. No obstructing renal or ureteral calculi are present. Nonspecific bilateral perinephric stranding. The urinary bladder is moderately distended, with mild posterior wall thickening. Prostate gland appears mildly prominent. Bilateral fat-containing inguinal hernias are present. No evidence of bowel obstruction. Moderate stool is present throughout the colon. No significant bowel wall thickening is seen. The appendix is unremarkable. No free fluid or free air is identified. There is atherosclerotic calcification along the aorta and iliac arteries. No retroperitoneal or pelvic lymphadenopathy is seen. There is a chronic appearing fracture of the right L3 transverse processes. Degenerative changes are present in the spine, most severe at L2-L3 and L5-S1. CT/CT abdomen pelvis w con IMPRESSION: 1. Interstitial pulmonary edema and trace pleural effusions. 2. Left thyroid nodule. Further workup with nonemergent ultrasound is recommended. 3. Cholelithiasis. 4. Mild wall thickening along the posterior bladder. Correlation with urinalysis is recommended, as cystitis is a possibility.
--- NOTE | ~2021-05-20 | CT_ITS ---
EXAMINATION: NONCONTRAST HEAD CT NONCONTRAST CERVICAL SPINE CT INDICATION INFORMATION: Fall with pain and weakness COMPARISON: 03/17/2017 TECHNIQUE: Separate noncontrast CT examinations of the head and cervical spine were performed. Coronal head CT images and coronal and sagittal cervical spine images were created at the technologist workstation. DLP: 1138 mGy-cm DOSE LOWERING TECHNIQUES: This CT examination was performed using dose optimization techniques as appropriate, variously including the following: - Automated exposure control - Adjustment of mA and/or kV according to patient size (this includes techniques or standardized protocols for targeted exams were dose is matched to indication/reason for exam; i.e. extremities or head) - Use of iterative reconstruction technique FINDINGS: Head: There is no evidence of acute intracranial hemorrhage or territorial infarction. No abnormal mass-effect or midline shift is seen. [place] to white matter differentiation is well preserved. No extra-axial fluid collections are identified. The ventricles are normal in size. There is no abnormal attenuation within the brain parenchyma. The osseous structures and soft tissues are normal. The mastoid air cells are well-aerated. There is mucosal thickening throughout the paranasal sinuses. There is rightward deviation of the nasal septum. Cervical spine: There is anatomic alignment of the vertebral bodies and posterior elements. There is degenerative change at the atlantodens articulation. Vertebral body heights are maintained. There is disc space narrowing of the lower cervical spine with associated endplate osteophytes. There is moderate multilevel facet arthropathy. No evidence of acute fracture. No prevertebral soft tissue swelling. Visualized portions of the lung apices are unremarkable. Partially visualized left thyroid nodule. CT/CT cervical spine wo con IMPRESSION: 1. No acute intracranial findings. 2. No acute findings identified in the cervical spine. Multilevel degenerative changes. 3. Partially visualized left thyroid lobe nodule, for which further evaluation with nonemergent ultrasound is recommended.
--- NOTE | ~2021-05-20 | US_ITS ---
EXAMINATION: US THYROID CLINICAL INFORMATION: Thyroid nodule COMPARISON: CT abdomen and pelvis 05/20/2021. TECHNIQUE: Linear transducer grayscale and color Doppler examination with attention to the region of the thyroid. FINDINGS: SIZE: Measurements of the thyroid lobes and nodules are given in sagittal, anteroposterior and transverse dimensions respectively. Right Thyroid Lobe: 4.3 x 1.8 x 2.1 cm, volume 8.4 mL. Parenchyma: The gland echotexture is homogeneous. Thyroid vascularity is normal. Left Thyroid Lobe: 3.9 x 2.3 x 2.1 cm, volume 9.7 mL. Parenchyma: The gland echotexture is heterogeneous. Thyroid vascularity is normal. Isthmus: 0.43 cm in maximum AP dimension. Estimated total number of nodules greater than or equal to 1 cm: 1. Ice Plant [employer] nodules are described as follows: 1. Location: Left mid. Size: 2.7 x 1.8 x 2.1 cm, volume 5.3 mL. Nodule characteristics: Composition: Solid (2). Echogenicity: Hypoechoic (2). Shape: Not taller than wide (0). Margins: Smooth (0). Echogenic Foci: None (0). ACR TI-RADS total points: 4 ACR TI-RADS category: 4 NODES: No lymphadenopathy is seen in the tissue surrounding the thyroid gland. US/US thyroid IMPRESSION: Left thyroid nodule measuring up to 2.7 cm demonstrating TR 4 characteristics is amenable to further evaluation with ultrasound-guided biopsy as per guidelines detailed below. ACR TI-RADS RECOMMENDATION REFERENCE: Ultrasound-guided fine-needle aspiration, followup ultrasound, no further follow up. * TR1 (0 point) and TR 2 (2 points): No FNA or follow up * TR3 (3 points): FNA if more than or equal to 2.5 cm in maximum dimension, followup ultrasound in 1, 3 and 5 years if 1.5 to 2.4 cm in maximum dimension. * TR4 (4-6 points): FNA if more than or equal to 1.5 cm in maximum dimension, followup ultrasound in 1, 2, 3 and 5 years if 1 to 1.4 cm in maximum dimension. * TR5 (more than or equal to 7 points): FNA if more than or equal to 1 cm in maximum dimension, followup ultrasound every year for 5 years if 0.5 to 0.9 cm in maximum dimension. * TR3, TR4 or TR5 nodules that are below the size threshold for follow up receive no follow up.
--- NOTE | 2021-05-20 01:45 | PC.NURSE ---
Pt c/o bilateral leg weakness. Pt states legs gave out on hime while he was walking to the bathroom this morning. Pt states LT arm felt weak during the episode. 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 Dr. Barfield made aware. Verbal taken and placed.
[2021-05-20 02:01] LABS: MANUAL DIFF FLAG NO
[2021-05-20 02:02] LABS: Basophils Percent Auto 0.1 % (0-2); Eosinophils Absolute Auto 0.2 X10*3/uL (0.0-0.4); Eosinophils Percent Auto 2.2 % (0-4); Hematocrit 29.7 % (42.0-52.0); Hemoglobin 9.8 g/dl (14.0-18.0); Imm Gran Abs Auto 0.09 X10*3/uL (0.00-0.03); Imm Gran Pct Auto 1.1 % (0.0-0.4); Lymphocytes Absolute Auto 1.7 X10*3/uL (1.2-4.9); Lymphocytes Percent Auto 21.7 % (20-40); Mean Corpuscular Hemoglobin 29.8 pg (27.0-33.0); Mean Corpuscular Volume 90.3 fL (80.0-98.0); Mean Platelet Volume 10.8 fL (9.4-12.4); Monocytes Absolute Auto 1.2 X10*3/uL (0.1-1.2); Monocytes Percent Auto 14.6 % (2-11); Neutrophils Absolute Auto 4.8 x10*3/uL (2.0-8.3); Neutrophils Percent Auto 60.3 % (45-73); Platelet Count 149 X10*3/uL (160-400); Red Blood Count 3.29 X10*6/uL (4.60-5.80); Red Cell Distribution Width 13.2 % (11.0-16.0)
[2021-05-20 02:20] LABS: Ethanol < 10 mg/dL
[2021-05-20 02:23] LABS: Alanine Aminotransferase 8 U/L (0-40); Albumin Level 3.7 g/dL (3.5-5.0); Alkaline Phosphatase 52 U/L (39-117); Anion Gap 17 (12-20); Aspartate Amino Transferase 10 U/L (5-37); Bilirubin Total 0.5 mg/dL (0.0-1.0); Blood Urea Nitrogen 35 mg/dL (9-16); Calcium 8.6 mg/dL (8.4-10.2); Carbon Dioxide 19 mmol/L (22-29); Chloride 98 mmol/L (96-108); Creatinine Clr Calc Pharmacy 37.8; Estimated Glomerular Filt Rate 38; Glucose Random 318 mg/dL (60-115); Potassium 5.8 mmol/L (3.3-5.1); Sodium 128 mmol/L (135-145); Total Protein 6.2 g/dL (6.5-8.0)
[2021-05-20 02:34] LABS: Troponin-I High Sensitivity 19.2 ng/L (<3.5-35.0)
[2021-05-20] MEDS: 0.9 % Sodium Chloride 1,000 ML 999 ML IV (02:59)
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
[2021-05-20 03:24] LABS: Glucose, Whole Blood 289 mg/dL (60-115)
[2021-05-20 03:45] LABS: B Type Natriuretic Peptide 462 pg/mL (<100)
--- NOTE | 2021-05-20 03:47 | PC.NURSE ---
call out to neurology correctional therapy teacher service @[phone]. Waiting for call back
[2021-05-20] MEDS: iohexoL 350 MG/ML 100 ML INFUS..BTL 85 ML IV (03:57)
--- NOTE | 2021-05-20 03:58 | ECG_ITS ---
Test Reason : CHEST PAIN Blood Pressure : / mmHG Vent. Rate : 089 BPM Atrial Rate : 089 BPM P-R Int : 178 ms QRS Dur : 100 ms QT Int : 362 ms P-R-T Axes : 072 -26 117 degrees QTc Int : 440 ms Sinus rhythm with occasional Premature ventricular complexes Possible Left atrial enlargement Cannot rule out Anterior infarct (cited on or before 03-NOV-2020) Marked ST abnormality, possible lateral subendocardial injury Abnormal ECG When compared with ECG of 20-MAY-2021 01:49, Premature ventricular complexes are now Present Referred By: Beverly Barfield Electronically Signed By:HANK ESPINOZA MD
[2021-05-20] MEDS: Nitroglycerin 0.4 MG TAB.SUBL SUBLINGUAL (04:23)
[2021-05-20 04:25] LABS: INTERNATIONAL NORM RATIO 1.1 (0.9-1.1); Prothrombin Time 12.3 SEC (9.9-13.0)
--- NOTE | 2021-05-20 04:27 | PC.NURSE ---
0422 Pt given 1 SL nitro for CP 4/10 BP tolerating Currently CP 3/10 Dr. Barfield made aware
[2021-05-20 04:28] LABS: Stroke Lab Use COMPLETE
[2021-05-20 04:30] LABS: Anion Gap 16 (12-20); Blood Urea Nitrogen 35 mg/dL (9-16); Calcium 8.6 mg/dL (8.4-10.2); Carbon Dioxide 19 mmol/L (22-29); Chloride 98 mmol/L (96-108); Creatinine Clr Calc Pharmacy 40.6; Estimated Glomerular Filt Rate 41; Glucose Random 326 mg/dL (60-115); Potassium 5.8 mmol/L (3.3-5.1); Sodium 127 mmol/L (135-145)
[2021-05-20] MEDS: Furosemide 100 MG/10 ML VIAL 60 MG IVPUSH (04:35)
[2021-05-20 04:36] LABS: Troponin-I High Sensitivity 17.1 ng/L (<3.5-35.0)
--- NOTE | 2021-05-20 04:58 | PC.NURSE ---
Pt asking for another SL nitro. C/o CP 05/[address] Barfield made aware 1 SL nitro given per verbal order
[2021-05-20 05:13] LABS: COVID-19 Test Negative (Negative)
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
--- NOTE | 2021-05-20 07:21 | PC.NURSE ---
Per hospitalist, hold heparin drip until after the echo
[2021-05-20 07:41] LABS: Glucose, Whole Blood 336 mg/dL (60-115)
[2021-05-20 07:45] LABS: Appearance Urine HAZY; Color Urine STRAW; Glucose Urine UA 250 MG/DL (NEG); Leukocyte Esterase Urine 2+ (NEG); Nitrite Urine NEG (NEG); PH 5.5 (5.0-8.0); Specific Gravity - Urine <= 1.005 (1.005-1.025); Urine Blood NEG (NEG); Urine Ketones NEG (NEG); Urine Protein NEG (NEG-TRACE)
[2021-05-20 07:57] LABS: Hematocrit 31.8 % (42.0-52.0); Hemoglobin 10.4 g/dl (14.0-18.0); Mean Corpuscular HGB Conc 32.7 g/dl (31.0-36.0); Mean Corpuscular Hemoglobin 29.6 pg (27.0-33.0); Mean Corpuscular Volume 90.6 fL (80.0-98.0); Mean Platelet Volume 10.8 fL (9.4-12.4); Platelet Count 156 X10*3/uL (160-400); Red Blood Count 3.51 X10*6/uL (4.60-5.80); Red Cell Distribution Width 13.2 % (11.0-16.0); White Blood Count 7.7 X10*3/uL (4.8-10.8)
[2021-05-20 07:57] LABS: WBC Urine 30-49 /HPF (0-4)
[2021-05-20 07:58] LABS: Bacteria Urine 1+ /LPF; Mucus Urine 1+ /LPF
[2021-05-20 07:59] LABS: INTERNATIONAL NORM RATIO 1.1 (0.9-1.1); Prothrombin Time 12.2 SEC (9.9-13.0)
[2021-05-20 08:01] LABS: PTT Heparin Drip 31.5 SEC (53-77.9)
[2021-05-20 08:14] LABS: Anion Gap 14 (12-20); Blood Urea Nitrogen 33 mg/dL (9-16); Calcium 8.8 mg/dL (8.4-10.2); Carbon Dioxide 24 mmol/L (22-29); Chloride 98 mmol/L (96-108); Creatinine Clr Calc Pharmacy 37.2; Estimated Glomerular Filt Rate 37; Glucose Random 352 mg/dL (60-115); Potassium 5.7 mmol/L (3.3-5.1); Sodium 130 mmol/L (135-145); Troponin-I High Sensitivity 102.6 ng/L (<3.5-35.0)
--- NOTE | 2021-05-20 08:24 | PHA.MEDREC ---
Pharmacy Consult ? Medication Reconciliation Pharmacy has completed the medication reconciliation. No remarkable issues. Gwen Mcdaniel, PabloD
[2021-05-20] MEDS: Atorvastatin Calcium 80 MG TABLET PO (08:45)
[2021-05-20] MEDS: Insulin Lispro 100 UNIT/ML 3 ML VIAL SUBCUT ×4 (08:48→22:01)
[2021-05-20] MEDS: Heparin Sodium,Porcine/1/2NS 25,000 UNIT/250 ML IV.SOLN 10.92 UNIT IVCONT ×2 (09:11→20:04)
[2021-05-20] MEDS: Heparin Sodium,Porcine 5,000 UNIT/ML VIAL 6200 UNIT IVPUSH ×2 (09:20→20:01)
[2021-05-20] MEDS: Aspirin 81 MG TAB.CHEW PO (09:21)
[2021-05-20 09:42] LABS: Hematocrit 31.7 % (42.0-52.0); Hemoglobin 10.4 g/dl (14.0-18.0); Mean Corpuscular HGB Conc 32.8 g/dl (31.0-36.0); Mean Corpuscular Hemoglobin 29.6 pg (27.0-33.0); Mean Corpuscular Volume 90.3 fL (80.0-98.0); Mean Platelet Volume 10.8 fL (9.4-12.4); Platelet Count 153 X10*3/uL (160-400); Red Blood Count 3.51 X10*6/uL (4.60-5.80); Red Cell Distribution Width 13.2 % (11.0-16.0); White Blood Count 6.8 X10*3/uL (4.8-10.8)
[2021-05-20 09:45] LABS: INTERNATIONAL NORM RATIO 1.2 (0.9-1.1)
--- NOTE | 2021-05-20 09:52 | MHC.CM.PN ---
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
--- NOTE | 2021-05-20 09:53 | PC.NURSE ---
6 units of sliding scale insulin for POC 336. Patient did not eat breakfast. Heparin drip started. Denies pain and shortness of breath. Skin warm pink and dry without any physical complaints.
[2021-05-20 09:55] LABS: Glucose, Whole Blood 278 mg/dL (60-115)
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
--- NOTE | 2021-05-20 10:26 | PC.NURSE ---
heparin drip stopped, sr on monitor, skin wpd, no complaints
--- NOTE | 2021-05-20 10:30 | CA_ITS ---
Transthoracic Echocardiogram Patient (Last, First, Middle): Issa Blancas J Gender: Male Date of : 1950 Age: 71 Procedure Date: 05/20/2021 Procedure Type: Transthoracic Echocardiogram Location: ER Height: 172.72 cm Weight: 79.38 kg BSA: 1.93 m2 Heart Rate: bpm BP: 122 / 66 mmHg Loan Service Officer: NASIR Referring MD: Emeka Pérez Car Audio Installer: Oneal Montes De Oca MD Symptoms: Abnormal EKG, CAD Study Quality: Good ECG Rhythm: Sinus Conclusions: - 1. [id number] LV systolic dysfunction with mild LVH with grade 3 diastolic dysfunction with underlying wall motion abnormality suggestive of coronary artery disease 2. Moderate left atrial enlargement 3. Moderate aortic stenosis 4. Normal RV systolic pressure 5. No gross pericardial effusion Findings Left Ventricle Normal left ventricular cavity size. There is mildly increased left ventricular wall thickness. The left ventricular systolic function is mild to moderately decreased. The visually estimated ejection fraction is between 40-45%. There is evidence of regional wall motion abnormalities. Spectral Doppler is indicative of a restrictive filling pattern. Elevated filling pressures. E/E prime ratio is >15, consistent with elevated filling pressures. Wall Motion Rest Echo Findings The mid inferior segment is hypokinetic. The inferoseptal wall, the basal inferior, and mid anteroseptal segments are akinetic. All other scored wall segments showed normal motion. Right Ventricle Normal right ventricular cavity size and systolic function. Atria The left atrium is moderately dilated. There is lipomatous hypertrophy of the interatrial septum. There is no evidence of interatrial shunt. The right atrium is mildly dilated. Aortic Valve There is moderate calcification of the aortic valve. There is mild thickening of the aortic valve. There is moderate aortic valve stenosis. The peak aortic gradient is 28 mmHg.The mean gradient is 17 mmHg. The aortic valve area is 1.36 cm2. There is no aortic valve regurgitation. Mitral Valve There is mild anterior and moderate posterior mitral leaflet thickening. The posterior mitral leaflet has restricted mobility. There is mild to moderate mitral valve regurgitation. There is no mitral valve stenosis. Pulmonic Valve The pulmonic valve is likely normal. There is mild pulmonic valve regurgitation. Tricuspid Valve Normal tricuspid valve structure. There is mild tricuspid valve regurgitation. The right ventricular systolic pressure is normal. The right ventricular systolic pressure is 31 mmHg. There is no evidence of pulmonary hypertension. Great Vessels The aorta was not well visualized. The pulmonary artery was not well visualized. Venous The inferior vena cava is normal in size and collapses greater than 50% with inspiration. Pericardium/Pleural There is no evidence of pericardial effusion. Prior Study Comparison Changes noted compared to prior study. LV systolic function is reduced. Aortic stenosis is moderate Measurements 2D Linear Measurements IVSd: 1.20 0.6-0.9/0.6-1.0 cm LVIDd: 4.58 3.9-5.3/4.2-5.9 cm LVIDd Index: 2.37 2.4-3.2/2.2-3.1 cm/m2 LVIDs: 2.89 2.0-3.6 cm LVPWd: 1.23 0.7-1.1 cm Ao Root: 3.30 2.1-3.5 cm LA Diam: 4.50 2.7-3.8/3.0-4.0 cm LAIDs Index: 2.33 1.5-2.3 cm/m2 LV Mass: 258.34 67-162/88-224 g LV Mass Index: 133.85 43-95/49-115 g/m2 LVOT Diam: 2.00 3.0+(-)1.3 cm 2D Systolic Function EF 4C: 38.60 >55% EF 2C: 50.60 >55% EF BiP: 43.80 >55% Mitral Valve MV Pk E: 1.46 MV PK A: 0.75 MV Decel Time: 179.00 E/A: 2.00 E'Lateral: 6.31 E'Medial: 4.03 E/E' Med: 36.20 E/E' Lat: 23.10 PHT: 52.00 MVA PHT: 4.23 Decel Hartley: 8.14 Aortic Valve AoV Pk Barrett: 2.65 AoV Mn Barrett: 1.92 AoV VTI: 0.61 AoV Pk Grad: 28.00 Aov Mn Grad: 17.00 JOSE Cont.VTI: 1.36 LVOT LVOT Pk Barrett: 1.24 LVOT Mn Barrett: 0.86 LVOT VTI: 0.26 LVOT Pk Grad: 6.00 LVOT Mn Grad: 3.00 LVOT Diam: 2.00 LVOT Area: 3.14 Diastolic Function MV Pk E: 1.46 MV Pk A: 0.75 E/A: 2.00 E'Medial: 4.03 E/E' Med: 36.20 E' Laterial: 6.31 E/E' Lat: 23.10 Right Ventricle TVS' Barrett: 9.46 Tricuspid Valve TR Pk Barrett: 2.64 TR Pk Grad: 28.00 RA Press: 3.00 RVSP: 31.00 Great Vessels Aorta Ao Root-2D: 3.30 2.0-3.7 cm Ao Asc: 3.20 2.1-3.4 cm Pulmonary Valve PV Pk Barrett: 1.33 Peak PV Grad: 7.00 Updated in Other Vendor System with Status of Final Oneal Montes De Oca MD electronically signed on 05/20/2021 9:06:28 AM with status of Final
--- NOTE | 2021-05-20 10:55 | MHC.STROKE ---
EMS PRE-NOTIFIED WEAKNESS AT 0118, ARRIVED 0122. EXAMINED BY PROVIDER, NIHSS = 2 FOR LEFT LEG AND ATAXIA ON THE LEFT. CT HEAD AND CTA H/N DONE, NO BLEED, NO LVO. SEE PROVIDER NOTE. EXLCUDED FROM TPA-ALTEPLASE BASED ON NIHSS = 2, MILD SYMPTOMS, NON-DISABLING. POSSIBLE CARDIAC ISSUES. IN SPEAKING WITH THE PATIENT, HE HAD A NORMAL DAY ON 05/19/21 EXCEPT THAT HE IS STRUGGLING WITH A COLD, CLARIFICATION OF LNW: HE WENT TO BED AT 2200 HE WOKE AT 0100 AND FELT HIS LEFT LEG WAS WEAK AND UNCOORDINATED. HE CALL 911. NO STROKE ALERT WAS CALLED. HE WAS OVER THE 3HR WINDOW FOR TPA-ALTEPLASE. I PROVIDED STROKE EDUCATION AND ANSWERED HIS QUESTIONS, WE REVIEWED HIS RISK FACTORS. HE IS SCHEDULED FOR A MRI. I WILL CONTINUE TO FOLLOW.
[2021-05-20 12:52] LABS: Glucose, Whole Blood 202 mg/dL (60-115)
--- NOTE | 2021-05-20 15:17 | PC.NURSE ---
ate maria guadalupe, nad, sr on monitor, 2u insulin given, no complaints
--- NOTE | 2021-05-20 16:24 | PC.NURSE ---
PATIENT WAS UNDRESS AND CHANGE INTO HOSPITAL ATTIRE BY THIS PCT .
--- NOTE | 2021-05-20 16:44 | PM.EVENT ---
Event Note Date of Service: 05/20/21 Event Note: Chart reviewed, patient examined. Exam unchanged from admission. Appreciate cardiology input heparin drip DC earlier today. MRI failed to demonstrate acute issues. Continue current therapies awaiting Neuro input
[2021-05-20] MEDS: Furosemide 40 MG/4 ML VIAL IVPUSH (17:47)
--- NOTE | 2021-05-20 18:07 | ECG_ITS ---
Test Reason : CHEST PAIN Blood Pressure : / mmHG Vent. Rate : 102 BPM Atrial Rate : 102 BPM P-R Int : 158 ms QRS Dur : 090 ms QT Int : 328 ms P-R-T Axes : 069 -04 124 degrees QTc Int : 427 ms Sinus tachycardia Left atrial enlargement ST & T wave abnormality, consider lateral ischemia Abnormal ECG When compared with ECG of 20-MAY-2021 03:59, Premature ventricular complexes are no longer Present T wave inversion more evident in Lateral leads Referred By: Kelby Riley Electronically Signed By:HANK ESPINOZA MD
[2021-05-20 18:25] LABS: Glucose, Whole Blood 247 mg/dL (60-115)
[2021-05-20 18:51] LABS: Troponin-I High Sensitivity 812.7 ng/L (<3.5-35.0)
--- NOTE | 2021-05-20 18:54 | PM.EVENT ---
Event Note Date of Service: 05/20/21 Event Note: Called to ER to see patient for acute onset of shortness of breath with desaturation. When examined, sats were 80 on room air which corrected to 92 on non-rebreather. Exam consistent with bilateral basilar crackles. Patient given 40 of Lasix IV and EKG was done. EKG demonstrated lateral ST depression new from this a.m.. Subsequent troponin bailee from 100 this a.m. to 812 currently. Patient started on heparin drip, nitro paste 1 in q.6, metoprolol 25 q.6 hours and will continue with the IV Lasix. This was discussed with Dr. Montes De Oca; patient now chest pain free. He will a arrange transport to [facility] in a.m. sooner if symptoms return. At 18:45 patient was chest pain-free and were able to titrate down his O2 at this time. Will repeat troponin at scheduled intervals.
[2021-05-20] MEDS: Metoprolol Tartrate 25 MG TABLET PO (19:09)
[2021-05-20] MEDS: Nitroglycerin 2 % Oint 1 GM Packet 1 INCH TRANSDERMA (19:10)
[2021-05-20 19:19] LABS: INTERNATIONAL NORM RATIO 1.1 (0.9-1.1); Prothrombin Time 12.8 SEC (9.9-13.0)
[2021-05-20 19:21] LABS: PTT Heparin Drip 31.7 SEC (53-77.9)
[2021-05-20 20:47] LABS: Glucose, Whole Blood 214 mg/dL (60-115)
--- NOTE | 2021-05-20 23:59 | PM.EVENT ---
Event Note Date of Service: 05/20/21 Event Note: pt febrile source likely UTI, has a UA from this morning that was positive , will start him on IV abx
[2021-05-21] MEDS: cefTRIAXone sodium 1 GM in 0.9 % Sodium Chloride 50 ML IV (00:32)
[2021-05-21] MEDS: Metoprolol Tartrate 25 MG TABLET PO ×3 (00:32→12:35)
[2021-05-21 00:51] LABS: MANUAL DIFF FLAG NO
[2021-05-21 00:53] LABS: Basophils Percent Auto 0.4 % (0-2); Eosinophils Percent Auto 0.5 % (0-4); Hematocrit 32.5 % (42.0-52.0); Imm Gran Abs Auto 0.05 X10*3/uL (0.00-0.03); Imm Gran Pct Auto 0.6 % (0.0-0.4); Lymphocytes Absolute Auto 1.1 X10*3/uL (1.2-4.9); Lymphocytes Percent Auto 14.8 % (20-40); Mean Corpuscular HGB Conc 33.8 g/dl (31.0-36.0); Mean Corpuscular Hemoglobin 30.1 pg (27.0-33.0); Mean Corpuscular Volume 88.8 fL (80.0-98.0); Mean Platelet Volume 10.5 fL (9.4-12.4); Monocytes Absolute Auto 0.8 X10*3/uL (0.1-1.2); Monocytes Percent Auto 9.7 % (2-11); Neutrophils Absolute Auto 5.7 x10*3/uL (2.0-8.3); Platelet Count 169 X10*3/uL (160-400); Red Blood Count 3.66 X10*6/uL (4.60-5.80); Red Cell Distribution Width 13.1 % (11.0-16.0); White Blood Count 7.7 X10*3/uL (4.8-10.8)
[2021-05-21 01:01] LABS: PTT Heparin Drip 65.4 SEC (53-77.9)
[2021-05-21 01:03] LABS: Lactic Acid 1.4 mmol/L (0.5-2.0)
[2021-05-21 04:00] VITALS: BP 153/83; PULSE 91; RESP 20; TEMP 37.6; O2SAT 97
[2021-05-21 06:15] VITALS: BP 144/75; PULSE 89
[2021-05-21] MEDS: Furosemide 40 MG/4 ML VIAL IVPUSH (06:16)
[2021-05-21] MEDS: Benzonatate 100 MG CAPSULE PO (06:24)
[2021-05-21 07:11] LABS: MANUAL DIFF FLAG NO
[2021-05-21 07:15] VITALS: BP 137/80; PULSE 85; RESP 20; TEMP 37.7; O2SAT 96
[2021-05-21 07:16] LABS: Basophils Percent Auto 0.5 % (0-2); Eosinophils Absolute Auto 0.1 X10*3/uL (0.0-0.4); Eosinophils Percent Auto 0.9 % (0-4); Hematocrit 33.4 % (42.0-52.0); Imm Gran Abs Auto 0.05 X10*3/uL (0.00-0.03); Imm Gran Pct Auto 0.7 % (0.0-0.4); Lymphocytes Absolute Auto 1.2 X10*3/uL (1.2-4.9); Lymphocytes Percent Auto 15.2 % (20-40); Mean Corpuscular HGB Conc 32.9 g/dl (31.0-36.0); Mean Corpuscular Hemoglobin 29.6 pg (27.0-33.0); Mean Corpuscular Volume 89.8 fL (80.0-98.0); Monocytes Absolute Auto 0.9 X10*3/uL (0.1-1.2); Monocytes Percent Auto 11.3 % (2-11); Neutrophils Absolute Auto 5.4 x10*3/uL (2.0-8.3); Neutrophils Percent Auto 71.4 % (45-73); Platelet Count 166 X10*3/uL (160-400); Red Blood Count 3.72 X10*6/uL (4.60-5.80); Red Cell Distribution Width 12.9 % (11.0-16.0); White Blood Count 7.6 X10*3/uL (4.8-10.8)
[2021-05-21 07:29] LABS: INTERNATIONAL NORM RATIO 1.2 (0.9-1.1); Prothrombin Time 13.2 SEC (9.9-13.0)
[2021-05-21 07:31] LABS: PTT Heparin Drip 39.6 SEC (53-77.9)
[2021-05-21 07:36] LABS: Alanine Aminotransferase 8 U/L (0-40); Albumin Level 3.5 g/dL (3.5-5.0); Alkaline Phosphatase 54 U/L (39-117); Anion Gap 16 (12-20); Aspartate Amino Transferase 13 U/L (5-37); Bilirubin Total 0.7 mg/dL (0.0-1.0); Blood Urea Nitrogen 32 mg/dL (9-16); Calcium 8.8 mg/dL (8.4-10.2); Carbon Dioxide 21 mmol/L (22-29); Chloride 100 mmol/L (96-108); Cholesterol 114 mg/dL; Creatinine Clr Calc Pharmacy 40.8; Estimated Glomerular Filt Rate 42; Glucose Fasting 263 mg/dL (60-99); HDL Cholesterol 29 mg/dL; LDL Cholesterol Calculated 68 mg/dl; Potassium 5.2 mmol/L (3.3-5.1); Sodium 132 mmol/L (135-145); Total Protein 6.2 g/dL (6.5-8.0); Triglycerides 87 mg/dL
[2021-05-21 07:54] LABS: B Type Natriuretic Peptide 1290 pg/mL (<100); Troponin-I High Sensitivity 818.7 ng/L (<3.5-35.0)
[2021-05-21 07:58] LABS: Glucose, Whole Blood 249 mg/dL (60-115)
[2021-05-21] MEDS: Insulin Lispro 100 UNIT/ML 3 ML VIAL SUBCUT ×2 (08:00→12:00)
[2021-05-21] MEDS: Heparin Sodium,Porcine 5,000 UNIT/ML VIAL 3100 UNIT IVPUSH (08:14)
[2021-05-21 08:21] VITALS: PULSE 87
[2021-05-21] MEDS: Nitroglycerin 2 % Oint 1 GM Packet 1 INCH TRANSDERMA (08:21)
--- NOTE | 2021-05-21 09:55 | PM.PNCARD ---
Subjective Subjective Date of Service: 05/21/21 Principal diagnosis: NSTEMI,CHF Interval history: Last evening patient had sudden-onset decompensation with chest pressure and sudden shortness of breath requiring BiPAP. At that time is EKG showed ST depression again. He was immediately treated and with oxygen his symptoms improved and his EKG changes improved. His troponins were further elevated and up to a 1000. He said these symptoms are similar to his acute heart failure, however his chest pressure reminded of angina. He was started on nitro paste. Also started on IV heparin yesterday. Currently appears much more symptom-free. Hemodynamically stable. Review of Systems Constitutional: Reports no additional constitutional complaints Cardiovascular: Reports chest pain at rest, Denies leg edema, Denies lightheadedness, Denies Loss of Consciousness, Denies palpitations and Reports dyspnea Respiratory: Reports no additional respiratory complaints and Reports dyspnea Gastrointestinal: Reports no additional gastrointestinal complaints Musculoskeletal: Reports no additional musculoskeletal complaints Reports system reviewed and no additional complaints, except as documented Psychiatric: Reports no additional psychiatric complaints Endocrine: Reports no additional endocrine complaints and Denies palpitations Physical Exam Vital Signs: Last Vital Signs Temp 99.8 F 05/21/21 07:15 Pulse 87 05/21/21 08:21 Resp 20 05/21/21 07:15 BP 137/80 05/21/21 07:15 Pulse Ox 96 05/21/21 07:15 BMI result Body Mass Index 26.1 Const General: cooperative, comfortable, alert and awake Nutritional Appearance: average body habitus Orientation/consciousness: patient oriented x3 Neck Neck: Yes trachea midline, Yes supple and Yes no JVD Resp Effort & Inspection: normal respiratory effort Auscultation: no crackles and diminished lung sounds Cardio Jugular venous distension: no JVD Palpation: normal PMI Rate: regular rate Rhythm: regular rhythm Heart sounds: S1 normal heart sound present, S2 normal heart sound present, no click, no gallops and no murmurs GI Auscultation: normal bowel sounds Skin General skin exam: no rashes or lesions noted Neuro General: patient oriented x3 Extrem General: Yes no clubbing, cyanosis or edema Objective Labs and Meds Result diagrams: 05/21/21 06:40 05/21/21 06:40 Lab results: Laboratory Results - last 24 hr 05/20/21 05/20/21 05/20/21 09:51 12:48 18:14 WBC RBC Hgb Hct MCV MCH MCHC RDW Plt Count MPV Immature Gran % (Auto) Neut % (Auto) Lymph % (Auto) [place] % (Auto) Eos % (Auto) Baso % (Auto) Lymph # (Auto) [place] # (Auto) Eos # (Auto) Baso # (Auto) Abs Immat Gran (auto) Absolute Neuts (auto) Absolute Nucleated RBC Nucleated RBC % (auto) PT INR aPTT Heparin Protocol Sodium Potassium Chloride Carbon Dioxide Anion Gap BUN Creatinine Estim Creat Clear Calc Estimated GFR POC Glucose 278 H 202 H Fasting Glucose Lactic Acid Calcium Total Bilirubin AST ALT Alkaline Phosphatase Troponin I High Sens 812.7 H* D B-Natriuretic Peptide Total Protein Albumin Triglycerides Cholesterol LDL Cholesterol, Calc HDL Cholesterol 05/20/21 05/20/21 05/20/21 18:15 18:55 20:42 WBC RBC Hgb Hct MCV MCH MCHC RDW Plt Count MPV Immature Gran % (Auto) Neut % (Auto) Lymph % (Auto) [place] % (Auto) Eos % (Auto) Baso % (Auto) Lymph # (Auto) [place] # (Auto) Eos # (Auto) Baso # (Auto) Abs Immat Gran (auto) Absolute Neuts (auto) Absolute Nucleated RBC Nucleated RBC % (auto) PT 12.8 INR 1.1 aPTT Heparin Protocol 31.7 L Sodium Potassium Chloride Carbon Dioxide Anion Gap BUN Creatinine Estim Creat Clear Calc Estimated GFR POC Glucose 247 H 214 H Fasting Glucose Lactic Acid Calcium Total Bilirubin AST ALT Alkaline Phosphatase Troponin I High Sens B-Natriuretic Peptide Total Protein Albumin Triglycerides Cholesterol LDL Cholesterol, Calc HDL Cholesterol 05/21/21 05/21/21 05/21/21 00:45 00:45 00:45 WBC 7.7 RBC 3.66 L Hgb 11.0 L Hct 32.5 L MCV 88.8 MCH 30.1 MCHC 33.8 RDW 13.1 Plt Count 169 MPV 10.5 Immature Gran % (Auto) 0.6 H Neut % (Auto) 74.0 H Lymph % (Auto) 14.8 L [place] % (Auto) 9.7 Eos % (Auto) 0.5 Baso % (Auto) 0.4 Lymph # (Auto) 1.1 L [place] # (Auto) 0.8 Eos # (Auto) 0.0 Baso # (Auto) 0.0 Abs Immat Gran (auto) 0.05 H Absolute Neuts (auto) 5.7 Absolute Nucleated RBC 0.000 Nucleated RBC % (auto) 0.0 PT INR aPTT Heparin Protocol 65.4 D Sodium Potassium Chloride Carbon Dioxide Anion Gap BUN Creatinine Estim Creat Clear Calc Estimated GFR POC Glucose Fasting Glucose Lactic Acid 1.4 Calcium Total Bilirubin AST ALT Alkaline Phosphatase Troponin I High Sens B-Natriuretic Peptide Total Protein Albumin Triglycerides Cholesterol LDL Cholesterol, Calc HDL Cholesterol 05/21/21 05/21/21 05/21/21 00:45 06:40 06:40 WBC 7.6 RBC 3.72 L Hgb 11.0 L Hct 33.4 L MCV 89.8 MCH 29.6 MCHC 32.9 RDW 12.9 Plt Count 166 MPV 11.0 Immature Gran % (Auto) 0.7 H Neut % (Auto) 71.4 Lymph % (Auto) 15.2 L [place] % (Auto) 11.3 H Eos % (Auto) 0.9 Baso % (Auto) 0.5 Lymph # (Auto) 1.2 [place] # (Auto) 0.9 Eos # (Auto) 0.1 Baso # (Auto) 0.0 Abs Immat Gran (auto) 0.05 H Absolute Neuts (auto) 5.4 Absolute Nucleated RBC 0.000 Nucleated RBC % (auto) 0.0 PT INR aPTT Heparin Protocol Sodium 132 L Potassium 5.2 H Chloride 100 Carbon Dioxide 21 L Anion Gap 16 BUN 32 H Creatinine 1.65 H Estim Creat Clear Calc 40.8 Estimated GFR 42 POC Glucose Fasting Glucose 263 H Lactic Acid Calcium 8.8 Total Bilirubin 0.7 AST 13 ALT 8 Alkaline Phosphatase 54 Troponin I High Sens 1465.0 H* D B-Natriuretic Peptide Total Protein 6.2 L Albumin 3.5 Triglycerides 87 Cholesterol 114 LDL Cholesterol, Calc 68 HDL Cholesterol 29 05/21/21 05/21/21 05/21/21 06:40 06:40 06:40 WBC Cancelled RBC Cancelled Hgb Cancelled Hct Cancelled MCV Cancelled MCH Cancelled MCHC Cancelled RDW Cancelled Plt Count Cancelled MPV Cancelled Immature Gran % (Auto) Neut % (Auto) Lymph % (Auto) [place] % (Auto) Eos % (Auto) Baso % (Auto) Lymph # (Auto) [place] # (Auto) Eos # (Auto) Baso # (Auto) Abs Immat Gran (auto) Absolute Neuts (auto) Absolute Nucleated RBC Cancelled Nucleated RBC % (auto) Cancelled PT Cancelled 13.2 H INR Cancelled 1.2 H aPTT Heparin Protocol Sodium Potassium Chloride Carbon Dioxide Anion Gap BUN Creatinine Estim Creat Clear Calc Estimated GFR POC Glucose Fasting Glucose Lactic Acid Calcium Total Bilirubin AST ALT Alkaline Phosphatase Troponin I High Sens B-Natriuretic Peptide Total Protein Albumin Triglycerides Cholesterol LDL Cholesterol, Calc HDL Cholesterol 05/21/21 05/21/21 05/21/21 06:40 06:40 07:18 WBC RBC Hgb Hct MCV MCH MCHC RDW Plt Count MPV Immature Gran % (Auto) Neut % (Auto) Lymph % (Auto) [place] % (Auto) Eos % (Auto) Baso % (Auto) Lymph # (Auto) [place] # (Auto) Eos # (Auto) Baso # (Auto) Abs Immat Gran (auto) Absolute Neuts (auto) Absolute Nucleated RBC Nucleated RBC % (auto) PT INR aPTT Heparin Protocol 39.6 L D Sodium Potassium Chloride Carbon Dioxide Anion Gap BUN Creatinine Estim Creat Clear Calc Estimated GFR POC Glucose 249 H Fasting Glucose Lactic Acid Calcium Total Bilirubin AST ALT Alkaline Phosphatase Troponin I High Sens 818.7 H* B-Natriuretic Peptide 1290 H Total Protein Albumin Triglycerides Cholesterol LDL Cholesterol, Calc HDL Cholesterol Imaging Radiologist's impression: Impressions Thyroid Ultrasound 05/20/21 09:53 IMPRESSION: Left thyroid nodule measuring up to 2.7 cm demonstrating TR 4 characteristics is amenable to further evaluation with ultrasound-guided biopsy as per guidelines detailed below. ACR TI-RADS RECOMMENDATION REFERENCE: Ultrasound-guided fine-needle aspiration, followup ultrasound, no further follow up. * TR1 (0 point) and TR 2 (2 points): No FNA or follow up * TR3 (3 points): FNA if more than or equal to 2.5 cm in maximum dimension, followup ultrasound in 1, 3 and 5 years if 1.5 to 2.4 cm in maximum dimension. * TR4 (4-6 points): FNA if more than or equal to 1.5 cm in maximum dimension, followup ultrasound in 1, 2, 3 and 5 years if 1 to 1.4 cm in maximum dimension. * TR5 (more than or equal to 7 points): FNA if more than or equal to 1 cm in maximum dimension, followup ultrasound every year for 5 years if 0.5 to 0.9 cm in maximum dimension. * TR3, TR4 or TR5 nodules that are below the size threshold for follow up receive no follow up. Brain MRI 05/20/21 12:10 IMPRESSION: - There are no acute intracranial findings. No acute infarcts. - There is global cerebral volume loss and there is mild chronic microangiopathy. - Pansinus disease with fluid levels that can be correlated for clinical signs of acute sinusitis. Chest X-Ray 05/20/21 18:53 IMPRESSION: CHF with interstitial edema similar to that noted on the CT chest earlier today Progress Note: A&P Assessment and plan (1) NSTEMI (non-ST elevated myocardial infarction): Status: Acute Assessment and Plan: Seems like patient developed acute pulmonary edema related to ischemic heart failure with EKG changes and elevated troponins. Doing much better with treatment including anti ischemic treatment oxygen therapy. At this time I think patient needs to be transferred to [facility] for cardiac catheterization and further evaluation. Creatinine is improved. Continue anti ischemic therapy with nitropaste and metoprolol. He is currently not getting Ranexa. Continue IV heparin, aspirin, high-intensity statin therapy. Continue Lasix. Strict intake and output chart needs to be pursued. Discussed with patient and patient is agreeable for transfer. 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 Thank you for allowing us to partake in his care Fall Risk Details Current Medications: Current Medications Acetaminophen (Acetaminophen 325 Mg Tablet) 650 mg PO Q6H PRN PRN Reason: Pain, Mild (Pain Scale 1-3) Aspirin (Aspirin 81 Mg Tab.Chew) 81 mg PO DAILY [facility] Last Admin: 05/20/21 09:21 Dose: 81 mg Documented by: Atorvastatin Calcium (Atorvastatin Calcium 80 Mg Tablet) 80 mg PO DAILY [facility] Last Admin: 05/20/21 08:45 Dose: 80 mg Documented by: Benzonatate (Benzonatate 100 Mg Capsule) 100 mg PO TID PRN PRN Reason: Cough Last Admin: 05/21/21 06:24 Dose: 100 mg Documented by: Docusate Sodium (Docusate Sodium 100 Mg Capsule) 100 mg PO DAILY PRN PRN Reason: Constipation Furosemide (Furosemide 40 Mg/4 Ml Vial) 40 mg IVPUSH Q12H [facility]; Protocol Last Admin: 05/21/21 06:16 Dose: 40 mg Documented by: Heparin Sodium (Porcine) (Heparin Sodium,Porcine 5,000 Unit/Ml Vial) 3,100 unit 40 unit/kg (3100 unit) IVPUSH PROTOCOL BOLUS PRN; Protocol PRN Reason: 40 unit/kg - Heparin Protocol Last Admin: 05/21/21 08:14 Dose: 3,100 unit Documented by: Heparin Sodium (Porcine) (Heparin Sodium,Porcine 5,000 Unit/Ml Vial) 6,200 unit 80 unit/kg (6200 unit) IVPUSH PROTOCOL BOLUS PRN; Protocol PRN Reason: 80 unit/kg - Heparin Protocol Heparin Sodium/Sodium Chloride () 25,000 unit in 250 mls @ 0 mls/hr IVCONT .Q0M [facility]; Protocol Last Titration: 05/21/21 08:15 Dose: 16 units/kg/hr, 12.48 mls/hr Documented by: Ceftriaxone Sodium 1 gm/ (Sodium Chloride) 50 mls @ 100 mls/hr IV Q24H [facility] Last Infusion: 05/21/21 01:10 Dose: Infused Documented by: Insulin Human Lispro (Insulin Lispro 100 Unit/Ml 3 Ml Vial) 0 unit SUBCUT QIDACHS [facility]; Protocol Last Admin: 05/21/21 08:00 Dose: 4 unit Documented by: Metoprolol Tartrate (Metoprolol Tartrate 25 Mg Tablet) 25 mg PO Q6H [facility]; Protocol Last Admin: 05/21/21 06:16 Dose: 25 mg Documented by: Nitroglycerin (Nitroglycerin 2 % Oint 1 Gm Packet) 1 inch TRANSDERMA RQ6H WHILE AWAKE [facility] Last Admin: 05/21/21 08:21 Dose: 1 inch Documented by: Ondansetron HCl (Ondansetron Hcl 4 Mg/2 Ml Vial) 4 mg IVPUSH Q8H PRN PRN Reason: Nausea and Vomiting Time Spent With Patient Time: Total time spent is greater than 50% in coordination of care (as documented) at patient's floor/unit and/or counseling patient: Progress Note: Quality Stroke Does the patient have a stroke diagnosis?: No Procedures Date of Service Date of Service: 05/21/21
[2021-05-21] MEDS: Atorvastatin Calcium 80 MG TABLET PO (10:30)
[2021-05-21] MEDS: Aspirin 81 MG TAB.CHEW PO (10:30)
[2021-05-21 11:19] VITALS: BP 136/73; PULSE 81; RESP 20; TEMP 37.5; O2SAT 94
--- NOTE | 2021-05-21 11:22 | MHC.CM.PN ---
Per ROUNDS discussion, Patient will be transferred to [facility] today, for Cardiac Cath.
--- NOTE | 2021-05-21 11:40 | PM.DS ---
DS: Providers Provider Date of Service: 05/21/21 Date of admission: 05/20/21 06:13 Date of discharge: 05/21/21 Primary care physician: James Mcgraw MD Consults: 05/20/21 06:12 Consult to Cardiology Routine Consulting Provider: Oneal Montes De Oca Reason for consultation: CHF Has provider been notified: No 05/20/21 06:13 Consult to Neurology Routine Consulting Provider: [facility] Reason for consultation: TIA vs stroke Has provider been notified: No DS: Diagnosis Discharge Diagnosis (1) NSTEMI (non-ST elevated myocardial infarction): Status: Acute DS: Summary Hospital Course Hospital Course: 71-year-old male with past medical history significant for CAD status post CABG, AAA, CHF, hyperlipidemia, hypertension and diabetes [facility] with initial complaint of left-sided weakness. In the emergency room CTA of head neck, head CT and brain MRI failed to demonstrate acute pathology. He was also noted to have subtle lateral ST T wave changes on EKG upon arrival. Initial troponin was flat however secondary troponin approximately 102.6 which peaked at midnight at 1465. After initial troponin jumped from 17.1-102.6, heparin drip was initiated. Approximately 1800 , patient acutely desatted with more significant STT wave changes laterally. Chest x-ray/exam consistent with pulmonary edema which responded to IV Lasix. During that time patient did experience retrosternal chest pain which lasted approximately 10 minutes and resolved. Topical nitrates were applied and he remained asymptomatic overnight into 05/21. Transthoracic echo done demonstrated [id number] LV systolic dysfunction with mild LVH with grade 3 diastolic dysfunction and underlying wall motion abnormality suggestive of coronary artery disease; estimated EF 40-45%. At time of transfer, patient has been pain free without respiratory distress. He still requires supplemental O2 but is resting comfortably. At this time he is medically acceptable for transfer to [facility] for cardiac catheterization Time Spent with Patient Time attestation: Total time spent providing and/or coordinating discharge services: Discharge coordination time: Greater than 30 minutes Quality: Safe Use of Opioids Does Pt have an Active Cancer Diagnosis on the Problem List?: No Quality: Stroke Does the patient have a stroke diagnosis?: No Physical Exam Vital Signs: Vital Signs: Last Vital Signs Temp 99.5 F 05/21/21 11:19 Pulse 81 05/21/21 11:19 Resp 20 05/21/21 11:19 BP 136/73 05/21/21 11:19 Pulse Ox 94 05/21/21 11:19 BMI result Body Mass Index 26.1 Const: Other: Awake alert oriented x3 resting comfortably in bed Resp: Other: Diminished at bases with bilateral faint crackles. No rhonchi or wheezes noted Cardio: Other: No S4; positive S1-S2; no S3 murmurs rubs or gallops GI: Other: Soft nontender nondistended with normoactive bowel sounds. There are no peritoneal signs noted Neuro: Other: Cranial nerves 2-12 grossly intact as tested. Motor is 5/5 in all extremities. Sensation is intact. Cognition is appropriate Extrem: Other: No edema bilaterally DS: Data Data Completed and Pending Completed studies during hospitalization [Text1]: Procedures Extirpation of Matter from Rectum, Via Natural or Artificial Opening (05/20/20) Labs on day of discharge: Laboratory Results - last 24 hr 05/20/21 05/20/21 05/20/21 12:48 18:14 18:15 WBC RBC Hgb Hct MCV MCH MCHC RDW Plt Count MPV Immature Gran % (Auto) Neut % (Auto) Lymph % (Auto) [place] % (Auto) Eos % (Auto) Baso % (Auto) Lymph # (Auto) [place] # (Auto) Eos # (Auto) Baso # (Auto) Abs Immat Gran (auto) Absolute Neuts (auto) Absolute Nucleated RBC Nucleated RBC % (auto) PT INR aPTT Heparin Protocol Sodium Potassium Chloride Carbon Dioxide Anion Gap BUN Creatinine Estim Creat Clear Calc Estimated GFR POC Glucose 202 H 247 H Fasting Glucose Lactic Acid Calcium Total Bilirubin AST ALT Alkaline Phosphatase Troponin I High Sens 812.7 H* D B-Natriuretic Peptide Total Protein Albumin Triglycerides Cholesterol LDL Cholesterol, Calc HDL Cholesterol 05/20/21 05/20/21 05/21/21 18:55 20:42 00:45 WBC 7.7 RBC 3.66 L Hgb 11.0 L Hct 32.5 L MCV 88.8 MCH 30.1 MCHC 33.8 RDW 13.1 Plt Count 169 MPV 10.5 Immature Gran % (Auto) 0.6 H Neut % (Auto) 74.0 H Lymph % (Auto) 14.8 L [place] % (Auto) 9.7 Eos % (Auto) 0.5 Baso % (Auto) 0.4 Lymph # (Auto) 1.1 L [place] # (Auto) 0.8 Eos # (Auto) 0.0 Baso # (Auto) 0.0 Abs Immat Gran (auto) 0.05 H Absolute Neuts (auto) 5.7 Absolute Nucleated RBC 0.000 Nucleated RBC % (auto) 0.0 PT 12.8 INR 1.1 aPTT Heparin Protocol 31.7 L Sodium Potassium Chloride Carbon Dioxide Anion Gap BUN Creatinine Estim Creat Clear Calc Estimated GFR POC Glucose 214 H Fasting Glucose Lactic Acid Calcium Total Bilirubin AST ALT Alkaline Phosphatase Troponin I High Sens B-Natriuretic Peptide Total Protein Albumin Triglycerides Cholesterol LDL Cholesterol, Calc HDL Cholesterol 05/21/21 05/21/21 05/21/21 00:45 00:45 00:45 WBC RBC Hgb Hct MCV MCH MCHC RDW Plt Count MPV Immature Gran % (Auto) Neut % (Auto) Lymph % (Auto) [place] % (Auto) Eos % (Auto) Baso % (Auto) Lymph # (Auto) [place] # (Auto) Eos # (Auto) Baso # (Auto) Abs Immat Gran (auto) Absolute Neuts (auto) Absolute Nucleated RBC Nucleated RBC % (auto) PT INR aPTT Heparin Protocol 65.4 D Sodium Potassium Chloride Carbon Dioxide Anion Gap BUN Creatinine Estim Creat Clear Calc Estimated GFR POC Glucose Fasting Glucose Lactic Acid 1.4 Calcium Total Bilirubin AST ALT Alkaline Phosphatase Troponin I High Sens 1465.0 H* D B-Natriuretic Peptide Total Protein Albumin Triglycerides Cholesterol LDL Cholesterol, Calc HDL Cholesterol 05/21/21 05/21/21 05/21/21 06:40 06:40 06:40 WBC 7.6 RBC 3.72 L Hgb 11.0 L Hct 33.4 L MCV 89.8 MCH 29.6 MCHC 32.9 RDW 12.9 Plt Count 166 MPV 11.0 Immature Gran % (Auto) 0.7 H Neut % (Auto) 71.4 Lymph % (Auto) 15.2 L [place] % (Auto) 11.3 H Eos % (Auto) 0.9 Baso % (Auto) 0.5 Lymph # (Auto) 1.2 [place] # (Auto) 0.9 Eos # (Auto) 0.1 Baso # (Auto) 0.0 Abs Immat Gran (auto) 0.05 H Absolute Neuts (auto) 5.4 Absolute Nucleated RBC 0.000 Nucleated RBC % (auto) 0.0 PT Cancelled INR Cancelled aPTT Heparin Protocol Sodium 132 L Potassium 5.2 H Chloride 100 Carbon Dioxide 21 L Anion Gap 16 BUN 32 H Creatinine 1.65 H Estim Creat Clear Calc 40.8 Estimated GFR 42 POC Glucose Fasting Glucose 263 H Lactic Acid Calcium 8.8 Total Bilirubin 0.7 AST 13 ALT 8 Alkaline Phosphatase 54 Troponin I High Sens B-Natriuretic Peptide Total Protein 6.2 L Albumin 3.5 Triglycerides 87 Cholesterol 114 LDL Cholesterol, Calc 68 HDL Cholesterol 29 05/21/21 05/21/21 05/21/21 06:40 06:40 06:40 WBC Cancelled RBC Cancelled Hgb Cancelled Hct Cancelled MCV Cancelled MCH Cancelled MCHC Cancelled RDW Cancelled Plt Count Cancelled MPV Cancelled Immature Gran % (Auto) Neut % (Auto) Lymph % (Auto) [place] % (Auto) Eos % (Auto) Baso % (Auto) Lymph # (Auto) [place] # (Auto) Eos # (Auto) Baso # (Auto) Abs Immat Gran (auto) Absolute Neuts (auto) Absolute Nucleated RBC Cancelled Nucleated RBC % (auto) Cancelled PT 13.2 H INR 1.2 H aPTT Heparin Protocol Sodium Potassium Chloride Carbon Dioxide Anion Gap BUN Creatinine Estim Creat Clear Calc Estimated GFR POC Glucose Fasting Glucose Lactic Acid Calcium Total Bilirubin AST ALT Alkaline Phosphatase Troponin I High Sens 818.7 H* B-Natriuretic Peptide 1290 H Total Protein Albumin Triglycerides Cholesterol LDL Cholesterol, Calc HDL Cholesterol 05/21/21 05/21/21 06:40 07:18 WBC RBC Hgb Hct MCV MCH MCHC RDW Plt Count MPV Immature Gran % (Auto) Neut % (Auto) Lymph % (Auto) [place] % (Auto) Eos % (Auto) Baso % (Auto) Lymph # (Auto) [place] # (Auto) Eos # (Auto) Baso # (Auto) Abs Immat Gran (auto) Absolute Neuts (auto) Absolute Nucleated RBC Nucleated RBC % (auto) PT INR aPTT Heparin Protocol 39.6 L D Sodium Potassium Chloride Carbon Dioxide Anion Gap BUN Creatinine Estim Creat Clear Calc Estimated GFR POC Glucose 249 H Fasting Glucose Lactic Acid Calcium Total Bilirubin AST ALT Alkaline Phosphatase Troponin I High Sens B-Natriuretic Peptide Total Protein Albumin Triglycerides Cholesterol LDL Cholesterol, Calc HDL Cholesterol Discharge Plan Discharge Patient Disposition: Xfer Acute Care Hospital Discharge Diagnosis: NSTEMI Referrals: James Mcgraw MD [Primary Care Provider] - 1 Week Discharge Medications: New ceftriaxone 1 gram Recon Soln 1 g IV Q24H 7 Days 0RF Nitro-Bid 2 % Ointment 1 inch transdermal RQ6H WHILE AWAKE Qty: 30 0RF heparin (porcine) 5,000 unit/mL Solution 3,100 unit IVPUSH PROTOCOL BOLUS PRN (Reason: 40 Unit/Kg - Heparin Protocol) Qty: 25 0RF heparin (porcine) 5,000 unit/mL Solution 6,200 unit IVPUSH PROTOCOL BOLUS PRN (Reason: 80 Unit/Kg - Heparin Protocol) Qty: 25 0RF heparin(porcine) in 0.45% NaCl 25,000 unit/250 mL Parenteral Solution 25,000 unit continuous IV infusion .Q0M Qty: 250 0RF furosemide 10 mg/mL Solution 40 mg IVPUSH Q12H Qty: 10 0RF Protocol: Hold for SBP< HOLD for SBP < : 90 ondansetron HCl (PF) 4 mg/2 mL Solution 4 mg IVPUSH Q8H PRN (Reason: Nausea And Vomiting) Qty: 10 0RF Continued (DME) FreeStyle Lite Strips Strip See Rx Instructions .ROUTE .MEDSUPPLY Qty: 100 11RF Rx Instructions: test three times a day (DME) FreeStyle Ellen 14 Day Sensor Kit See Rx Instructions .ROUTE .MEDSUPPLY Qty: 1 0RF Rx Instructions: As directed- patient tests 5-7x daily (DME) FreeStyle Ellen 14 Day [place] Misc See Rx Instructions .ROUTE .MEDSUPPLY Qty: 1 0RF Rx Instructions: As directed- patient test 5-7 x daily omeprazole magnesium 20 mg tablet,delayed release (DR/EC) 20 mg PO DAILY Qty: 90 0RF finasteride 5 mg tablet 5 mg PO DAILY 90 Days Qty: 90 3RF lisinopril 20 mg tablet 20 mg PO DAILY Qty: 90 1RF ezetimibe 10 mg tablet 10 mg PO DAILY Qty: 90 1RF isosorbide mononitrate 60 mg tablet extended release 24 hr 60 mg PO BID Qty: 180 1RF atorvastatin 80 mg tablet 80 mg PO BEDTIME Qty: 90 1RF Januvia 100 mg tablet 100 mg PO DAILY Qty: 90 1RF nitroglycerin 0.4 mg tablet, sublingual 0.4 mg sublingual DAILY PRN (Reason: for angina) Qty: 25 1RF pregabalin 75 mg capsule 75 mg PO BID 30 Days Qty: 60 1RF clopidogrel 75 mg tablet 75 mg PO DAILY Qty: 90 1RF amlodipine 10 mg tablet 10 mg PO DAILY Qty: 90 0RF alprazolam 0.5 mg tablet 0.5 mg PO BID Qty: 60 0RF escitalopram oxalate 10 mg tablet 10 mg PO DAILY 90 Days Qty: 90 1RF Basaglar KwikPen U-100 Insulin 100 unit/mL (3 mL) insulin pen 40 unit subcut BEDTIME Qty: 15 1RF tamsulosin 0.4 mg capsule 0.4 mg PO BEDTIME 90 Days Qty: 90 1RF ranolazine 500 mg tablet extended release 12 hr 500 mg PO BID Qty: 180 1RF carvedilol 12.5 mg tablet 12.5 mg PO BID 90 Days Qty: 180 0RF Glucagon (HCl) Emergency Kit 1 mg recon soln 1 mg subcut Q20M PRN (Reason: hypoglycemia) Qty: 1 0RF Rx Instructions: until target blood sugar attained glipizide 10 mg tablet 10 mg PO DAILY 0RF aspirin [Adult Low Dose Aspirin] 81 mg tablet,delayed release (DR/EC) 81 mg PO DAILY 0RF Discontinued metformin 1,000 mg tablet 1,000 mg PO BID Qty: 180 1RF torsemide 20 mg tablet 40 mg PO DAILY Qty: 90 1RF ciprofloxacin HCl 250 mg tablet 250 mg PO DAILY 90 Days Qty: 90 0RF Discharge Orders: Discharge Order (Routine); Ordered 05/21/21 Ordered By: Emeka Pérez Diet: advance to usual diet Activity on Discharge: As tolerated Stand Alone Forms: Patient Portal Discharge page Care Plan Goals: Transfer to [facility] Health Concerns: Further workup/treatment as dictated by receiving facility Plan of Treatment: Transfer to cardiology service at [facility] Assessment: See discharge summary
[2021-05-21 11:57] LABS: Glucose, Whole Blood 260 mg/dL (60-115)
[2021-05-21 12:00] VITALS: O2SAT 92
== END 2021-05-21 12:35 | disposition short-term general hospital (02) | DRG 280 ==
LOC: HO.ED 04:46 → HO.EDOVER 06:19 → HO.IMC 19:22
PROVIDERS: Physician Assistant; Admitting Provider Internal Medicine; Emergency Provider Student in an Organized Health Care Education/Training Program; PCP Internal Medicine; Visit Provider Hospitalist
DX: I21.4 Non-ST elevation (NSTEMI) myocardial infarction (principal); I50.33 Acute on chronic diastolic (congestive) heart failure; G81.94 Hemiplegia, unspecified affecting left nondominant side; N17.9 Acute kidney failure, unspecified; E87.1 Hypo-osmolality and hyponatremia; N39.0 Urinary tract infection, site not specified; I13.0 Hypertensive heart and chronic kidney disease with heart failure and stage 1 through stage 4 chronic kidney disease, or unspecified chronic kidney disease; I25.119 Atherosclerotic heart disease of native coronary artery with unspecified angina pectoris; I71.4 Abdominal aortic aneurysm, without rupture; Z20.822 Contact with and (suspected) exposure to COVID-19; E87.5 Hyperkalemia; E04.1 Nontoxic single thyroid nodule; R29.702 NIHSS score 2; Z86.16 Personal history of COVID-19; N18.9 Chronic kidney disease, unspecified; E11.22 Type 2 diabetes mellitus with diabetic chronic kidney disease; Z95.1 Presence of aortocoronary bypass graft; Z79.4 Long term (current) use of insulin; Z79.01 Long term (current) use of anticoagulants; Z79.82 Long term (current) use of aspirin; Z79.899 Other long term (current) drug therapy
CPT/HCPCS: 36415; 70450; 70496; 70498; 70551; 71045; 71260; 72125; 74177; 76536; 80048; 80053; 80061; 81001; 82077; 82550; 82947; 83605; 83880; 84484; 85025; 85027; 85610; 85730; 87040; 87086; 87140; 87635; 93005; 93306; 96361; 96374; 97162; 97166; 99285; J0696; J1940; Q9957; Q9967

== ENCOUNTER → 2021-05-28 08:47 | Outpatient (BNVA) | payer MEDICARE, SELFPAY | PROVIDERS: PCP Internal Medicine; Visit Provider Urology | DX: N30.20 Other chronic cystitis without hematuria (principal) | CPT/HCPCS: 52000; 99212 ==

== ENCOUNTER 2021-06-24 14:55 | Outpatient (REF) | payer MEDICARE, SELFPAY | END 2021-06-24 14:56 | disposition home or self-care (01) | LOC: HO.US 14:55 | PROVIDERS: Visit Provider Nurse Practitioner Family | DX: Z13.89 Encounter for screening for other disorder (principal) ==